=== PATIENT | male | born 1960 | race Caucasian/White ===

== ENCOUNTER 2018-10-24 15:12 | Emergency (ER) | payer MEDICARE, MEDICAID ==
[2018-10-24 15:20] VITALS: BP 185/74
--- NOTE | 2018-10-24 15:50 | UC ---
UC General HPI - HPI Summary HPI Summary: 58 yo with hx of chronic pain, with development of jaundice over a 5 day period , following an illness with subjective fever, vomiting x 2, and several days of loose stools. Overall has improved, but aware of dark urine and jaundice. No pruritus. Decreased appetite x years and reports a weight loss of about 100 pounds over a year, but for the past ? year his weight has been stable. No dysphagia, abdominal pain, abdominal bloating or back pain. No history of alcohol use or iv drug abuse, no hx of blood transfusions. - History of Current Complaint Chief Complaint: UCGeneralIllness Stated Complaint: TIRED Time Seen by Provider: 10/24/18 15:23 Hx Obtained From: Patient Onset/Duration: Gradual Onset, Lasting Days Pain Intensity: 0 Associated Signs & Symptoms: Negative: Abdominal Pain, Anticoagulation Therapy, Back Pain, Cough, Chest Pain, Decreased Responsiveness, Dizziness, Dysuria, Decreased Oral Intake, Hematemesis, Melena, Nausea, Recent Medication Changes - Allergy/Home Medications Allergies/Adverse Reactions: Allergies Allergy/AdvReac Type Severity Reaction Status Date / Time bacitracin Allergy Rash Verified 10/24/18 15:20 [From Neosporin ([id number])] neomycin Allergy Rash Verified 10/24/18 15:20 [From Neosporin ([id number])] polymyxin B Allergy Rash Verified 10/24/18 15:20 [From Neosporin ([id number])] Adhesive Tape AdvReac See Comment Verified 10/24/18 15:20 PMH/Surg Hx/FS Hx/Imm Hx - Additional Past Medical History Additional PMH: Chronic pain secondary to osteoarthritis both knees post trauma Chronic dry mouth, assumes secondary to meds. Previously Healthy: No Other History Of: Negative For: Anticoagulant Therapy - Surgical History Surgical History: Yes Surgery Procedure, Year, and Place: ORIF R femur - Family History Known Family History: Positive: Cardiac Disease - father and sibs with CAD; father sudden age 56, Other Family History: brother of pancreatic cancer. - Social History Occupation: Disabled Lives: Alone Alcohol Use: None Substance Use Type: Marijuana Substance Use Comment - Amount & Last Used: daily Smoking Status (MU): Never Smoked Tobacco - Immunization History Most Recent Influenza Vaccination: never takes Most Recent Tetanus Shot: utd Most Recent Pneumonia Vaccination: refused Review of Systems All Other Systems Reviewed And Are Negative: Yes Constitutional: Positive: Fatigue Skin: Positive: Negative Eyes: Positive: Negative ENT: Positive: Negative Respiratory: Negative: Shortness Of Breath Cardiovascular: Positive: Other - says no hx of hypertension, typically BP at Dr. Boss's office is 130/80. States got irritated at his phone on the way here. Negative: Palpitations, Chest Pain Gastrointestinal: Positive: Negative Genitourinary: Positive: Other - urine has been dark in color x several days.. Negative: Dysuria, Hematuria, Frequency, Urgency Motor: Positive: Decreased ROM - both knees Neurovascular: Positive: Negative Musculoskeletal: Positive: Arthralgia Neurological: Negative: Headache, Weakness Psychological: Positive: Anxious Is Patient Immunocompromised?: No Physical Exam Triage Information Reviewed: Yes Appearance: No Pain Distress, Obese - Large man, rather forceful in speech and manner, without pain. Alert and oriented., Other: - Jaundiced. Vital Signs: Initial Vital Signs Temp 98.6 F 10/24/18 15:16 Pulse 93 10/24/18 15:16 Resp 18 10/24/18 15:16 BP 185/74 10/24/18 15:16 Pulse Ox 100 10/24/18 15:16 Vital Signs Reviewed: Yes Eyes: Positive: Other: - + scleral icterus ENT: Positive: Pharynx normal, TMs normal, Other - dry mucous membranes Dental Exam: Normal Neck: Positive: Supple, Nontender, No Lymphadenopathy Respiratory: Positive: Lungs clear, Normal breath sounds Cardiovascular: Positive: RRR, No Murmur Abdomen Description: Positive: Nontender, No Organomegaly - Liver without apparent enlargement, no tenderness to liver edge., Soft. Negative: CVA Tenderness (R), CVA Tenderness (L), Distended, Guarding, Peritoneal Signs Bowel Sounds: Positive: Present Musculoskeletal: Positive: Strength Intact, Edema @ - bilateral mild pitting edema; reports chronic Skin Exam: Other - jaundiced; hemosiderin deposits both legs. Course/Dx - Course Course Of Treatment: Discussed currently has jaundice, not acutely ill. Needs investigations, declines ER today. Aware of need for imaging studies. - Differential Dx - Multi-Symptom Differential Diagnoses: Metabolic Abnormality, Other - obstructive jaundice, hepatocellular injury, pancreatic inflammation - Diagnoses Provider Diagnosis: Jaundice Discharge - Sign-Out/Discharge Documenting (check all that apply): Patient Departure All imaging exams completed and their final reports reviewed: No Studies - Discharge Plan Condition: Stable Disposition: HOME Patient Education Materials: Jaundice (ED) Referrals: No Primary Care Phys,NOPCP [Primary Care Provider] - [facility] [Outside] Additional Instructions: Lab testing will be available tomorrow. As discussed, you have evidence of jaundice, which could be the result of an infection or could be due to many other causes, such as medications or blockage of flow out of the liver. Work is being done to check on possible reasons, but more work up will be needed. Call the [facility] clinic on Friday to arrange an urgent visit to begin this work up. IN the meantime, keep up a high intake of fluids. If you develop vomiting or abdominal pain or fever. please go to the emergency room for evaluation. - Billing Disposition and Condition Condition: STABLE Disposition: Home
[2018-10-25 13:45] LABS: ABS Basophils 0 10^3/ul (0-0.2); ABS Eosinophils 0.1 10^3/ul (0-0.6); ABS Lymphocytes 1.3 10^3/ul (1.0-4.8); ABS Monocytes 0.7 10^3/ul (0-0.8); ABS Neutrophils 3.6 10^3/ul (1.5-7.7); ABS Nucleated RBC 0 10^3/ul; Eosinophil % 2.1 %; Hematocrit 40 % (42-52); Hemoglobin 13.8 g/dl (14.0-18.0); Lymphocyte % 22.2 %; Mean Corpuscular HGB Conc 34 g/dl (31-36); Mean Corpuscular Hemoglobin 31 pg (27-31); Mean Corpuscular Volume 91 fL (80-94); Mean Platelet Volume 9.8 fL (7.4-10.4); Nucleated Red Blood Cells % 0.3; Platelet Count 113 10^3/ul (150-450); Red Cell Distribution Width 17 % (10.5-15); White Blood Count 5.7 10^3/ul (3.5-10.8)
[2018-10-25 14:03] LABS: EGFR Non-African American 93.5 (>60)
--- NOTE | 2018-10-25 15:59 | UC ---
- Progress Note Progress Note: 10/25/2018 CBC: Hg 13.8 low HCR;40 low CMC: itcteric results may not be valid, Billirubin 23.20 very elevated Liver enzymes still pending Amylase :20 low Hep B panel still pending Dr Newton called clinic this morning advised to call back patient and inform him he needs to go to the ER immediately for further evaluation and treatment. Nurse Tanya Alvarez Already contacted Patient on his phone and he stated he will go tomorrow morning. No change Karma Ramon PA-C Course/Dx - Diagnoses Provider Diagnoses: Jaundice Discharge - Sign-Out/Discharge Documenting (check all that apply): Patient Departure - D/C home All imaging exams completed and their final reports reviewed: No Studies - Discharge Plan Condition: Stable Disposition: HOME Patient Education Materials: Jaundice (ED) Referrals: [facility] [Outside] No Primary Care Phys,NOPCP [Primary Care Provider] - Additional Instructions: Lab testing will be available tomorrow. As discussed, you have evidence of jaundice, which could be the result of an infection or could be due to many other causes, such as medications or blockage of flow out of the liver. Work is being done to check on possible reasons, but more work up will be needed. Call the [facility] clinic on Friday to arrange an urgent visit to begin this work up. IN the meantime, keep up a high intake of fluids. If you develop vomiting or abdominal pain or fever. please go to the emergency room for evaluation. - Billing Disposition and Condition Condition: STABLE Disposition: Home
--- NOTE | 2018-10-26 07:15 | UC ---
- Progress Note Progress Note: Pt aware of results CBC, CMP, Hep panel Pt went to ED yesterday - left AMA when advised admission per notes no change nick 10/26/18 Course/Dx - Diagnoses Provider Diagnoses: Jaundice Discharge - Sign-Out/Discharge Documenting (check all that apply): Post-Discharge Follow Up All imaging exams completed and their final reports reviewed: No Studies - Discharge Plan Condition: Stable Disposition: HOME Patient Education Materials: Jaundice (ED) Referrals: [facility] [Outside] No Primary Care Phys,NOPCP [Primary Care Provider] - Additional Instructions: Lab testing will be available tomorrow. As discussed, you have evidence of jaundice, which could be the result of an infection or could be due to many other causes, such as medications or blockage of flow out of the liver. Work is being done to check on possible reasons, but more work up will be needed. Call the [facility] clinic on Friday to arrange an urgent visit to begin this work up. IN the meantime, keep up a high intake of fluids. If you develop vomiting or abdominal pain or fever. please go to the emergency room for evaluation. - Billing Disposition and Condition Condition: STABLE Disposition: Home
== END 2018-10-24 16:19 | disposition home or self-care (01) ==
LOC: UCEAST 15:12
DX: R17 Unspecified jaundice (principal); Z88.1 Allergy status to other antibiotic agents; Z91.09 Other allergy status, other than to drugs and biological substances
CPT/HCPCS: 36415; 80053; 82150; 83690; 85025; 86140; 86706; 86708; 86709; 86803; 99211; G0463

== ENCOUNTER 2018-10-25 17:55 | Emergency (ER) | payer MEDICARE, MEDICAID ==
[2018-10-25 18:40] LABS: Hematocrit 37 % (42-52); Hemoglobin 12.7 g/dl (14.0-18.0); Mean Corpuscular HGB Conc 34 g/dl (31-36); Mean Corpuscular Hemoglobin 32 pg (27-31); Mean Corpuscular Volume 93 fL (80-94); Red Blood Count 4.01 10^6/ul (4.00-5.40); Red Cell Distribution Width 17 % (10.5-15)
[2018-10-25 19:03] LABS: ABS Basophils 0 10^3/ul (0-0.2); ABS Eosinophils 0 10^3/ul (0-0.6); ABS Lymphocytes 0.6 10^3/ul (1.0-4.8); ABS Monocytes 0.6 10^3/ul (0-0.8); ABS Neutrophils 2.7 10^3/ul (1.5-7.7); ABS Nucleated RBC 0 10^3/ul; Eosinophil % 0.9 %; Lymphocyte % 15.8 %; Mean Platelet Volume 8.5 fL (7.4-10.4); Nucleated Red Blood Cells % 0.2; Platelet Count 95 10^3/ul (150-450)
[2018-10-25] MEDS ORDERED: Iohexol 300* (CONTRAST) 10 ML SDV IV ONE (19:20)
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
[2018-10-25 22:45] VITALS: BP 161/94
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
== END 2018-10-25 22:43 | disposition left against medical advice (07) ==
LOC: ED 17:55
DX: E80.6 Other disorders of bilirubin metabolism (principal); R94.5 Abnormal results of liver function studies
CPT/HCPCS: 36415; 74177; 80053; 82247; 82248; 83690; 85025; 85060; 99282; Q9967

== ENCOUNTER 2018-10-26 09:37 | Inpatient (IN) | payer MEDICARE, MEDICAID ==
--- NOTE | 2018-10-26 10:05 | ED ---
GI/ HPI - HPI Summary HPI Summary: Patient is a 58 y/o M presenting to ED with complaints of N/V/D and abdominal pain five days ago, elevated bilirubin and liver enzymes. N/V/D and abdominal pain lasted three days and resolved. Patient went to convenient care yesterday as he was told that he appeared jaundiced, patient was sent to ED for further workup due to elevated bilirubin and liver enzymes. At the time, he denied any symptoms, Hx of liver disease, and alcohol usage. Admission was offered to patient but he declined as he stated he needed to "secure his house" last night. Patient returns to ED today and reports no Sx, came back for gallbladder ultrasound. On triage, pain is denied, nothing is noted to aggravate/alleviate Sx. Home medications and allergies are reviewed. - History of Current Complaint Chief Complaint: EDGeneral Time Seen by Provider: 10/26/18 09:56 Stated Complaint: GENERAL ILLNESS Hx Obtained From: Patient Onset/Duration: Started Days Ago - five days ago N/V/D and abdominal pain, Resolved - N/V/D and abdominal pain Timing: Lasting Days - N/V/D and abdominal pain lasted three days Current Severity: None Pain Intensity: 0 Associated Signs and Symptoms: Positive: Nausea, Vomiting, Diarrhea, Abdominal Pain, Other: - elevated bilirubin and liver enzymes Aggravating Factor(s): Nothing Alleviating Factor(s): Nothing - Additional Pertinent History Primary Care Physician: [id number] - Allergy/Home Medications Allergies/Adverse Reactions: Allergies Allergy/AdvReac Type Severity Reaction Status Date / Time bacitracin Allergy Rash Verified 10/26/18 09:46 [From Neosporin ([id number])] neomycin Allergy Rash Verified 10/26/18 09:46 [From Neosporin ([id number])] polymyxin B Allergy Rash Verified 10/26/18 09:46 [From Neosporin ([id number])] Adhesive Tape AdvReac See Comment Verified 10/26/18 09:46 Home Medications: Home Medications Mometasone Furoate 1 applic TOPICAL Q12HR 10/26/18 [History Confirmed 10/26/18] Oxycodone HCl 5 mg PO Q4H 10/26/18 [History Confirmed 10/26/18] PMH/Surg Hx/FS Hx/Imm Hx Endocrine/Hematology History: Denies: Hx Anticoagulant Therapy, Hx Blood Disorders, Hx Blood Transfusions, Hx Bone Marrow Disease, Hx Diabetes, Hx Sickle Cell Disease, Hx Anemia, Hx Unexplained Bleeding, Other Endocrine/Hematological Disorders Cardiovascular History: Reports: Hx Hypertension History: Denies: Hx Acute Renal Failure, Hx Benign Prostatic Hyperplasia, Hx Chronic Renal Failure, Hx Dialysis, Hx Kidney Infection, Hx Renal Disease, Other Problems/Disorders Musculoskeletal History: Reports: Hx Arthritis - alittle Sensory History: Denies: Hx Contacts or Glasses, Hx Hearing Aid Opthamlomology History: Denies: Hx Contacts or Glasses Neurological History: Denies: Hx Developmental Delay, Hx Headaches, Hx Nerve Disease, Hx Spinal Cord Injury, Other Neuro Impairments/Disorders Psychiatric History: Denies: Hx Attention Deficit Hyperactivity Disorder, Hx Eating Disorder, Hx Panic Disorder, Hx Post Traumatic Stress Disorder, Hx Inpatient Treatment, Hx Community Mental Health Tx, Hx of Violent Episodes Against Others, Hx Substance Abuse, Other Psychiatric Issues/Disorders - Surgical History Surgery Procedure, Year, and Place: ORIF R femur Hx Anesthesia Reactions: No Infectious Disease History: No Infectious Disease History: Denies: History Other Infectious Disease, Traveled Outside the [place] in Last 30 Days - Family History Known Family History: Positive: Cardiac Disease - father and sibs with CAD; father sudden age 56, Other Family History: brother of pancreatic cancer. - Social History Alcohol Use: None Substance Use Type: Reports: Marijuana Substance Use Comment - Amount & Last Used: daily Smoking Status (MU): Never Smoked Tobacco Review of Systems Positive: Other - elevated bilirubin and liver enzymes . Negative: Fever - on vitals, temp is 98.3 F Positive: Abdominal Pain, Vomiting, Diarrhea, Nausea All Other Systems Reviewed And Are Negative: Yes Physical Exam - Summary Physical Exam Summary: VITAL SIGNS: Reviewed. GENERAL: Patient is a well-developed and nourished male who is lying comfortable in the stretcher. Patient is not in any acute respiratory distress. Patient is jaundiced. HEAD AND FACE: No signs of trauma. No ecchymosis, hematomas or skull depressions. No sinus tenderness. EYES: PERRLA, EOMI x 2, No injected conjunctiva, no nystagmus. EARS: Hearing grossly intact. Ear canals and tympanic membranes are within normal limits. MOUTH: Oropharynx within normal limits. NECK: Supple, trachea is midline, no adenopathy, no JVD, no carotid bruit, no c- spine tenderness, neck with full ROM. CHEST: Symmetric, no tenderness at palpation LUNGS: Clear to auscultation bilaterally. No wheezing or crackles. CVS: Regular rate and rhythm, S1 and S2 present, no murmurs or gallops appreciated. ABDOMEN: Soft, non-tender. Abdomen is distended. No rebound no guarding, and no masses palpated. Bowel sounds are normal. EXTREMITIES: FROM in all major joints, no cyanosis or clubbing. Bilateral edema 2+. NEURO: Alert and oriented x 3. No acute neurological deficits. Speech is normal and follows commands. SKIN: Dry and warm Triage Information Reviewed: Yes Vital Signs On Initial Exam: Initial Vitals Temp Pulse Resp BP Pulse Ox 98.3 F 86 16 131/58 96 10/26/18 09:41 10/26/18 09:41 10/26/18 09:41 10/26/18 09:41 10/26/18 09:41 Vital Signs Reviewed: Yes Diagnostics - Vital Signs Vital Signs Temp Pulse Resp BP Pulse Ox 10/26/18 09:41 98.3 F 86 16 131/58 96 - Laboratory Result Diagrams: 10/26/18 10:32 10/26/18 10:32 Lab Statement: Any lab studies that have been ordered have been reviewed, and results considered in the medical decision making process. - Ultrasound No standard instances Ultrasound Interpretation Completed By: Radiologist Summary of Ultrasound Findings: GALLBLADDER US IMPRESSION: 1. SMALL AMOUNT OF ASCITES. 2. HETEROGENEOUS NODULAR LIVER SUGGESTIVE OF CIRRHOSIS. 3. EXTRAHEPATIC DUCTAL DISTENTION. AN MRCP STUDY MAY BE HELPFUL IN FURTHER EVALUATION. 4. DISTENDED GALLBLADDER WITH MILD GALLBLADDER WALL THICKENING LIKELY SECONDARY TO ASCITES. LESS LIKELY ACUTE CHOLECYSTITIS. RECOMMEND CLINICAL CORRELATION. THIS REPORT WAS REVIEWED BY ED PHYSICIAN. - EKG 1024 Cardiac Rate: NL - rate of 64 bpm EKG Rhythm: Sinus Rhythm EKG Comparison: No Significant Change - no significant change compared to EKG from 05/20/15 Summary of EKG Findings: EKG showed sinus rhythm with rate of 64 BPM, right bundle branch block, no significant change compared to EKG from 05/20/15 [facility] Course/Dx - Course Assessment/Plan: Patient is a 58 y/o M presenting to ED with complaints of N/V/ D and abdominal pain five days ago, elevated bilirubin and liver enzymes. N/V/D and abdominal pain lasted three days and resolved. Patient went to convenient care yesterday as he was told that he appeared jaundiced, patient was sent to ED for further workup due to elevated bilirubin and liver enzymes. At the time, he denied any symptoms, Hx of liver disease, and alcohol usage. Admission was offered to patient but he declined as he stated he needed to "secure his house" last night. Patient returns to ED today and reports no Sx, came back for gallbladder ultrasound. On triage, pain is denied, nothing is noted to aggravate /alleviate Sx. Home medications and allergies are reviewed. Blood work without any significant abnormality except for slight anemia, INR is 1.65, PTT is 34.2, sodium 132, potassium 3.3, glucose is 124, magnesium 1.6 for which the patient was given potassium chloride and magnesium. The total bilirubin is 21.4, direct is 14.7 indirect is 6.7, AST is 886 and AST is 552. Alkaline phosphatase 122 ammonia 79. CRP 16.4 albumin 2.9. In the ED course the patient was given IV fluids, potassium chloride and magnesium IV. Right upper quadrant ultrasound impression: Small amount of ascites. Heterogeneous nodular liver a suggestion of cirrhosis. Extrahepatic ductal distention. An MRCP study may be helpful in further evaluation. At this point I discussed my physical exam, findings and test results with Dr. Mercedes from the hospital services was accepted the patient for admission. The patient is hemodynamically stable and alert and oriented 3. - Diagnoses Provider Diagnoses: Cirrhosis, Jaundice, Hepatitis - Physician Notifications Discussed Care Of Patient With: Kisha Mercedes Time Discussed With Above Provider: 11:34 Instructed by Provider To: Other - Patient's case was discussed with Dr. Mercedes at 1134, Dr. Mercedes accepts patient for admission. Discharge - Sign-Out/Discharge Documenting (check all that apply): Patient Departure - admit All imaging exams completed and their final reports reviewed: Yes - Discharge Plan Condition: Stable Disposition: ADMITTED TO [facility] - Billing Disposition and Condition Condition: STABLE Disposition: Admitted to [facility] - Attestation Statements Document Initiated by Scribe: Yes Documenting Scribe: RISHABH MEJIAS Provider For Whom Scribe is Documenting (Include Credential): BIANCA MEYERS MD Scribe Attestation: I, RISHABH MEJIAS, scribed for BIANCA MEYERS MD on 10/26/18 at 1808. Scribe Documentation Reviewed: Yes Provider Attestation: The documentation as recorded by the scribe, RISHABH MEJIAS accurately reflects the service I personally performed and the decisions made by me, BIANCA MEYERS MD Status of Scribe Document: Viewed
[2018-10-26 10:54] LABS: ABS Basophils 0 10^3/ul (0-0.2); ABS Eosinophils 0.1 10^3/ul (0-0.6); ABS Lymphocytes 0.9 10^3/ul (1.0-4.8); ABS Monocytes 0.6 10^3/ul (0-0.8); ABS Neutrophils 2.6 10^3/ul (1.5-7.7); ABS Nucleated RBC 0 10^3/ul; Eosinophil % 2.1 %; Hematocrit 35 % (42-52); Hemoglobin 12.4 g/dl (14.0-18.0); Lymphocyte % 20.7 %; Mean Corpuscular HGB Conc 35 g/dl (31-36); Mean Corpuscular Hemoglobin 32 pg (27-31); Mean Corpuscular Volume 91 fL (80-94); Mean Platelet Volume 8.4 fL (7.4-10.4); Nucleated Red Blood Cells % 0.1; Platelet Count 98 10^3/ul (150-450); Red Cell Distribution Width 17 % (10.5-15); White Blood Count 4.1 10^3/ul (3.5-10.8)
[2018-10-26 10:59] LABS: INR 1.65 (0.77-1.02)
[2018-10-26 11:00] LABS: Activated Partial Thrombo Time 34.2 seconds (26.0-36.3)
[2018-10-26 11:03] LABS: Albumin 2.9 g/dL (3.2-5.2); Albumin/Globulin Ratio 0.8 (1-3); C Reactive Protein 16.4 mg/L (<8.01); EGFR Non-African American 94.8 (>60); Globulin 3.7 g/dL (2-4); Potassium 3.3 mmol/L (3.5-5.0); Total Bilirubin 21.4 mg/dL (0.2-1.0); Total Protein 6.6 g/dL (6.4-8.9)
[2018-10-26 11:04] LABS: Magnesium 1.6 mg/dL (1.9-2.7)
[2018-10-26 11:05] LABS: Total Bilirubin 21.5 mg/dL (0.2-1.0)
[2018-10-26 11:36] LABS: Indirect Bilirubin 6.7 mg/dL (0.3-1.0)
[2018-10-26] MEDS ORDERED: Magnesium Sulfate 1 GM IV* 1 GM/100 ML BAG IV ONE (12:49)
[2018-10-26] MEDS ORDERED: Potassium Chlor TAB* 20 MEQ TAB.ER PO ONE (12:52)
[2018-10-26] MEDS ORDERED: oxyCODONE TAB* 5 MG TAB PO SCH (13:00)
[2018-10-26 13:24] LABS: Hepatitis B Surface Antigen Nonreactive (Nonreactive)
[2018-10-26 13:50] LABS: Hepatitis C Antibody Nonreactive (Nonreactive)
--- NOTE | 2018-10-26 14:44 | HP ---
CC: Dr. Boss * HISTORY AND PHYSICAL: DATE OF ADMISSION: 10/26/18. TIME OF ADMISSION: 12:30 p.m. PRIMARY CARE PHYSICIAN: Had been Dr. Smith; however, he states that he was "fired" from this practice. He currently only follows with Dr. Boss for pain management. CHIEF COMPLAINT: "I turned yellow." HISTORY OF PRESENT ILLNESS: This is a 58-year-old man with history of chronic pain syndrome who presents with 3 days of worsening jaundice. He states he did not notice himself, but his friend pointed out that he had yellow eyes and yellow skin. He went to [facility] on Friday and was found to have an elevated bilirubin and was told to come to the emergency department; however, he refused. Then he came to the emergency department last night, was found to have a consistently elevated bilirubin and was evaluated for admission; however , he refused to stay, so he is back today with jaundice and is surprised to hear that I am planning to admit him. Other than jaundice, he declines any other symptoms except that he had "a stomach bug" last week that he describes as 1 day of vomiting and loose stool that resolved on its own. He has not had any recent travel. He denies any recent weight loss or weight gain. He denies abdominal distention. He denied any bleeding. He denies change in his bowels. He says he used to drink heavily, but quit approximately 30 years ago. He drank heavily for approximately 10 years. He has never used IV drugs and he does not currently drink alcohol. He takes hydrocodone for his pain, but no Tylenol containing products. He has no family history of liver disease and he has no other medical history that he knows of. PAST MEDICAL HISTORY: Knee osteoarthritis. Otherwise, he says he has no medical problems and taking no other medications. PAST SURGICAL HISTORY: None. HOME MEDICATIONS: 1. Oxycodone 5 mg q.4 p.r.n. pain. 2. Zanaflex 4 mg q.4 p.r.n. pain. FAMILY HISTORY: His brother had pancreatic cancer and last year. 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 He is a never smoker. His emergency contact is his son, Ronnie Lenz, phone number [phone]. REVIEW OF SYSTEMS: He denies fever, chills, nausea, vomiting, diarrhea, constipation, confusion or forgetfulness, falls, chest pain, shortness of breath. Remainder of the 14-point review of systems is negative. PHYSICAL EXAMINATION GENERAL: Alert, jaundiced man in no distress. He appears older than stated age. He is nontoxic appearing and he is irate. He yells through my interview and at the staff who enter his room. He is oriented to person, place and situation and time. VITAL SIGNS: Temperature 98.3, heart rate 86, respiratory rate 16, pulse ox 96 % on room air, blood pressure 131/58. HEENT: His pupils are equal bilaterally. He has scleral icterus. His oral mucosa is moist. He has no pharyngeal exudates or erythema. NECK: I see no JVP. No cervical adenopathy. CHEST: He is in a regular rate and rhythm with no murmurs. LUNGS: Clear bilaterally. ABDOMEN: Flat with no fluid wave. His liver is barely palpable at the costal margin. I cannot feel his spleen. He has no guarding or rebound. EXTREMITIES: 2+ pitting edema to the knees bilaterally. SKIN: Icteric. He has no petechiae or other bleeding. LABORATORY DATA: White blood cells 4.1, hemoglobin 12.4, platelets 98,000. INR 1.65. Sodium 132, potassium 3.3, chloride 103, bicarb 22, creatinine 0.83, lactic acid 1.0, magnesium 1.6, total bilirubin 21.5, AST 86, ALT 552, alkaline phosphatase 122, troponin 0, albumin 2.9, lipase 31. IMAGING: A gallbladder ultrasound shows; 1. Small amount of ascites. 2. Heterogenous nodular liver suggestive of cirrhosis. 3. Extrahepatic ductal distention. 4. Distended gallbladder with mild gallbladder wall thickening likely secondary to ascites, less likely acute cholecystitis. Abdomen and pelvis CT from 10/25/18 shows cirrhotic liver, splenomegaly, extensive collateral circulation consistent with portal venous hypertension including prominent paraesophageal varices, shotty nonspecific upper abdominal adenopathy and very minimal free fluid without abscess. ASSESSMENT AND PLAN: This is a 58-year-old man with history of chronic pain syndrome who presented to the emergency department with 3 to 4 days of worsening jaundice. 1. Acute decompensated liver failure. The etiology of his liver failure is unclear and this is a new diagnosis for him. His MELD score is currently 27. He does have a remote history of alcohol abuse, but I will do a complete cirrhosis workup including ferritin, ceruloplasmin, an acute hepatitis panel, hep C antibody, antimitochondrial and anti-smooth muscle antibodies and also AFP. I am consulting Dr. Noonan to see if either an MRCP or an ERCP would be indicated as pancreatic malignancy should be on the differential given the painlessness of the jaundice. I am checking an acetaminophen level and UA. Unfortunately, the ultrasound was not done with Doppler and this may be prudent to rule out a portal vein thrombosis as the underlying reason for his decompensation. I will discuss this with Dr. Noonan. 2. Coagulopathy, likely related to decompensated liver failure. No evidence of bleeding and no indication for reversal. 3. Thrombocytopenia also likely secondary to decompensated liver failure. I note that his thrombocytopenia dates back to 2014; however, there is no abdominal imaging from that time. 4. Diet: Low sodium diet. 5. Full code. [id number]/[facility] #: [id number] [facility]
[2018-10-26] MEDS: tiZANidine TAB* 2 MG PO PRN ×2 (14:47→23:22)
[2018-10-26 18:21] LABS: Urine Appearance Clear; Urine Bilirubin 2+ (Negative); Urine Blood Negative (Negative); Urine Color Amber; Urine Glucose Negative (Negative); Urine Ketones Negative (Negative); Urine Nitrite Negative (Negative); Urine Protein Negative (Negative); Urine Specific Gravity 1.006 (1.010-1.030); Urine Urobilinogen Positive (Negative)
--- NOTE | 2018-10-26 18:29 | CONS ---
CC: Dr. Mercedes * CONSULTATION REPORT: DATE OF CONSULT: 10/26/18 REQUESTING PHYSICIAN: Dr. Mercedes. INDICATION: Jaundice. HISTORY OF PRESENT ILLNESS: Mr. Lobato is a very pleasant 58-year-old gentleman , who states that his friends had noticed him to be "yellow" beginning about 3 to 4 days ago. He came to the emergency room a couple of days ago for this and was found to have an elevated bilirubin level. He thought he was coming back today for an ultrasound. He was requested to be admitted from the emergency room last night; however, he refused. He returned today thinking he was getting an ultrasound. He did have the ultrasound today but was agreeable to admission at that point. The patient states that he does have intermittent nausea and vomiting. He states that his urine has been dark multiple times in the past, but he drinks fluids and it returns to a normal yellow color. Denies any abdominal pain. No change in his bowel habit. No black stools. No bright red blood. He states he has never been jaundiced before. No family history of liver disease. He did have a history of drinking to excess approximately 30 years ago; however, he denies any alcohol use in the past 30 years. He denies any intravenous drug use or any drug use other than marijuana. 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 He does use acetaminophen on a regular basis for knee pain and again no family history of liver disease. PAST MEDICAL HISTORY: Significant for osteoarthritis. PAST SURGICAL HISTORY: None. MEDICATIONS AT HOME: Include: 1. Oxycodone. 2. Zanaflex. FAMILY HISTORY: Pancreatic cancer. SOCIAL HISTORY: He denies any recent alcohol use. Thirty years ago, he tells me was his last drink. He denies any tobacco. No IV drug use, but does smoke marijuana. REVIEW OF SYSTEMS: Twelve systems were reviewed and other than that mentioned in the HPI were unremarkable. PHYSICAL EXAM: Temperature is 98, blood pressure is 149/66, O2 sat is 100% on room air, pulse is 76. General: Chronically ill-appearing male, appears older than his stated age, jaundiced. HEENT: Mucous membranes are moist without lesions, ulcers, or exudates. Sclerae are icteric. Conjunctivae are not pale. Neck is supple. Trachea is midline. Heart: Regular rate and rhythm. Lungs: Clear to auscultation bilaterally. No wheezes, rales, or rhonchi. Abdomen is obese. Positive bowel sounds. Soft. I could not appreciate any dull flanks. Skin is warm and dry and visibly jaundiced. Neuro: No asterixis. DIAGNOSTIC STUDIES/LAB DATA: Of note, his MELD is 27. Sodium is 132. His bilirubin is 21.5, AST is 886. This has come down from 10/24/18, it was 1195, it is now down to 886, it was 36 back in 2015. His ALT came down from 678 to 522, it was 20 back in 2015. Bilirubin in 2015 was 0.8, it was 23.2 on 10/24/18 , it is down to 21.4. Albumin is 29. Platelets of 98, they were 90 back in 2015. INR is 1.65, 1.16 in 2015. Hemoglobin is 12.4. He does have a gallbladder ultrasound from earlier this morning, which reveals a small amount of ascites, cirrhotic liver, extrahepatic ductal distention. MRCP study may be helpful in further evaluation. CT abdomen and pelvis from yesterday reveals cirrhotic liver, splenomegaly, extensive collateral circulation due to portal venous hypertension, nonspecific abdominal adenopathy, mild ascites, borderline mesenteric lymph nodes. ASSESSMENT AND PLAN: This is a 58-year-old gentleman who presents with significantly elevated liver function tests without many other symptoms. Possibilities would include some form of intrinsic liver disease. He adamantly denies any alcohol in the past 30 years. He has had blood work already for hepatitis A, B, and C. They are all negative. Other possibilities would include autoimmune hepatitis, primary biliary cholangitis, hemochromatosis. I doubt he has Juan disease. He does have a family history of pancreatic cancer. He does have extrahepatic ductal dilatation. I would expect if there was a pancreatic cancer causing ductal obstruction, it would have been seen on the CT; however, Radiology is recommending an MRCP. I think that this is reasonable. Additionally, it could be acetaminophen toxicity. He states he has not taken any in the past 3 days. He did have low platelet count back in 2014, thus I suspect this may be more of an acute on chronic issue. There are no obstructing gallstones. He adamantly denies any IV drug use, thus I doubt we have an early hepatitis C or hepatitis B that has not manifested yet. At this point, he does have lab work pending. We will arrange for an MRCP. His numbers are improving. Another possibility would include an ischemic hepatitis ; however, he denies any significant hypotension episodes or abdominal pain. We will await the blood work return and we will obtain the MRCP. We will follow along very closely. [id number]/[facility] #: [id number] [facility]
[2018-10-26] MEDS ORDERED: Morphine VIAL* 4 MG/ML VIAL (1 ml vial) IV ONE (21:04)
[2018-10-26] MEDS: oxyCODONE TAB* 5 MG TAB PO SCH ×2 (21:07→23:22)
[2018-10-27] MEDS: oxyCODONE TAB* 5 MG TAB PO SCH ×4 (02:10→19:52)
[2018-10-27 07:06] LABS: INR 1.65 (0.77-1.02)
[2018-10-27 07:19] LABS: Albumin 2.9 g/dL (3.2-5.2); Albumin/Globulin Ratio 0.8 (1-3); Calcium 8.9 mg/dL (8.6-10.3); EGFR Non-African American 94.8 (>60); Globulin 3.8 g/dL (2-4); Total Protein 6.7 g/dL (6.4-8.9)
[2018-10-27 07:23] LABS: ABS Basophils 0 10^3/ul (0-0.2); ABS Eosinophils 0.1 10^3/ul (0-0.6); ABS Lymphocytes 1.6 10^3/ul (1.0-4.8); ABS Monocytes 0.7 10^3/ul (0-0.8); ABS Neutrophils 2.6 10^3/ul (1.5-7.7); ABS Nucleated RBC 0 10^3/ul; Eosinophil % 2.8 %; Hematocrit 37 % (42-52); Hemoglobin 12.8 g/dl (14.0-18.0); Lymphocyte % 32.3 %; Mean Corpuscular HGB Conc 35 g/dl (31-36); Mean Corpuscular Hemoglobin 32 pg (27-31); Mean Corpuscular Volume 91 fL (80-94); Mean Platelet Volume 8.6 fL (7.4-10.4); Nucleated Red Blood Cells % 0.1; Platelet Count 108 10^3/ul (150-450); Red Blood Count 4.06 10^6/ul (4.00-5.40); Red Cell Distribution Width 17 % (10.5-15); Total Bilirubin 21.1 mg/dL (0.2-1.0)
[2018-10-27 15:11] LABS: Ceruloplasmin 30.7 mg/dL
[2018-10-27 15:31] LABS: AFP Tumor Marker 7.7 ng/mL (<6.0)
[2018-10-27] MEDS ORDERED: Morphine VIAL* 4 MG/ML VIAL (1 ml vial) IV ONE (20:55)
--- NOTE | 2018-10-27 21:32 | PN ---
Subjective Date of Service: 10/27/18 Interval History: Mr. Lobato underwent MRCP last night. He feels fine today, wants to go home. He denies nausea, vomiting, melena, confusion, hematochezia, bloating, fevers, abdominal pain. Appetite is good. Had a normal bm this morning. Objective Active Medications: Ondansetron HCl (Zofran Inj*) 4 mg IV Q6H PRN PRN Reason: NAUSEA Oxycodone HCl (Roxycodone Tab*) 5 mg PO Q4H JERRY Last Admin: 10/27/18 19:52 Dose: 5 mg Vital Signs - 8 hr 10/27/18 10/27/18 10/27/18 14:15 15:01 17:00 Temperature 98.5 F Pulse Rate 70 Respiratory 18 16 18 Rate Blood Pressure 153/68 (mmHg) O2 Sat by Pulse 100 Oximetry 10/27/18 10/27/18 10/27/18 18:47 19:52 21:08 Temperature 98.5 F Pulse Rate 83 Respiratory 14 20 18 Rate Blood Pressure 174/70 (mmHg) O2 Sat by Pulse 99 Oximetry Oxygen Devices in Use Now: None Appearance: alert, well appearing, jaundiced Eyes: - - +icterus Ears/Nose/Mouth/Throat: NL Teeth, Lips, Gums, - - +subungual icterus Respiratory: Symmetrical Chest Expansion and Respiratory Effort, Clear to Auscultation Cardiovascular: NL Sounds; No Murmurs; No JVD, RRR Abdominal: NL Sounds; No Tenderness; No Distention, No Hepatosplenomegaly, - - no fluid wave Lymphatic: No Cervical Adenopathy Extremities: - - 1+ edema b/l Skin: No Rash or Ulcers Neurological: Alert and Oriented x 3, - - no asterixis Result Diagrams: 10/27/18 06:49 10/27/18 06:49 Assess/Plan/Problems-Billing Assessment: This is a 58 year old man with chronic pain syndrome who presented to the ED with jaundice and was found to have cirrhosis on imaging, which is a new diagnosis for him. - Patient Problems (1) Acute liver failure Current Visit: Yes Status: Acute Comment: acute hepatitis panel is negative ferritin is >1500 and TIBC is very elevated, suggesting a diagnosis of hemochromatosis I have discussed this with Dr. Wheeler and requested a liver biopsy and he agrees to do one tomorrow afternoon anti-mitochondrial and anti-smooth muscle ab are pending may be a transplant candidate but I have no discussed this with him yet no bleeding, encephalopathy ? role of BB in primary prophylaxis in patients with varices visualized on CT but not endoscopy; will disucss with GI (2) Chronic pain Current Visit: No Status: Acute Code(s): G89.29 - OTHER CHRONIC PAIN SNOMED Code(s): 60522937 Comment: At home take [place] 10/325 6-8x daily as well as Oxycodone 5mg 6-8x daily and Zanaflex. I am giving him hydrocodone and oxy only. Dr. Boss contacted me today and noted that zanaflex can cause LFT abnormalities in 5% of people. This would not explain the other findings, but I am discontinuing it so as not to obscure the picture (3) HTN (hypertension) Current Visit: No Status: Acute Code(s): I10 - ESSENTIAL (PRIMARY) HYPERTENSION SNOMED Code(s): 84382294 Comment: had been on metoprolol in the past, but he currently has no PCP will add back at the dose he had been on in 2015 per our records
[2018-10-27] MEDS: Ondansetron INJ* 2 MG/ML VIAL IV PRN (21:41)
[2018-10-27] MEDS ORDERED: HYDROcodone/ACETAMIN 5-325 MG* 1 TAB PO PRN (22:29)
[2018-10-27] MEDS ORDERED: PROCHLORPERAZINE INJ 5 MG/ML 2 ML VIAL IV PRN (22:30)
[2018-10-28] MEDS: oxyCODONE TAB* 5 MG TAB PO SCH ×3 (03:24→09:01)
[2018-10-28] MEDS: Ondansetron INJ* 2 MG/ML VIAL IV PRN ×2 (07:23→15:25)
[2018-10-28] MEDS ORDERED: oxyCODONE TAB* 5 MG TAB PO SCH (08:22)
--- NOTE | 2018-10-28 08:28 | PN ---
Subjective Date of Service: 10/28/18 Interval History: Refused labs and vitals this morning. Feels nauseous and has been vomiting and thinks it is due to narcotic withdrawal. Objective Active Medications: Hydrocodone Bitart/Acetaminophen ([place] 5-325 Tab*) 2 tab PO Q6H PRN PRN Reason: PAIN Last Admin: 10/28/18 03:24 Dose: 2 tab Ondansetron HCl (Zofran Inj*) 4 mg IV Q6H PRN PRN Reason: NAUSEA Last Admin: 10/28/18 07:23 Dose: 4 mg Prochlorperazine Edisylate (Compazine Inj*) 5 mg IV Q6H PRN PRN Reason: NAUSEA/VOMITING Last Admin: 10/27/18 22:47 Dose: 5 mg Vital Signs - 8 hr 10/28/18 10/28/18 10/28/18 03:14 03:20 03:24 Temperature 97.4 F Pulse Rate 105 Respiratory 20 20 Rate Blood Pressure 174/72 (mmHg) O2 Sat by Pulse 100 Oximetry 10/28/18 10/28/18 10/28/18 05:57 07:28 07:29 Temperature Pulse Rate Respiratory 20 18 18 Rate Blood Pressure (mmHg) O2 Sat by Pulse Oximetry Oxygen Devices in Use Now: None Appearance: alert, sitting on the edge of the bed, uncomfortable but nontoxic Eyes: - - + icterus Neck: NL Appearance and Movements; NL JVP Respiratory: Symmetrical Chest Expansion and Respiratory Effort, Clear to Auscultation Cardiovascular: NL Sounds; No Murmurs; No JVD, RRR Abdominal: - - not distended. obese. nontender, no fluid wave. liver is palpable at the costal margin. Extremities: - - 1+ edema Neurological: Alert and Oriented x 3, - - no asterixis Result Diagrams: 10/27/18 06:49 10/27/18 06:49 Assess/Plan/Problems-Billing Assessment: This is a 58 year old man with chronic pain syndrome who presented to the ED with jaundice and was found to have cirrhosis on imaging. - Patient Problems (1) Nausea & vomiting Current Visit: Yes Status: Acute Code(s): R11.2 - NAUSEA WITH VOMITING, UNSPECIFIED SNOMED Code(s): 62202818 Comment: exam is benign, but may be related to liver failure will ask lab to attempt to re-draw labs he thinks it is from withdrawal but he has been getting narcotics increase compazine (2) Acute liver failure Current Visit: Yes Status: Acute Comment: acute hepatitis panel is negative ferritin is >1500 and TIBC is very elevated, suggesting a diagnosis of hemochromatosis Liver biopsy today anti-mitochondrial and anti-smooth muscle ab are pending may be a transplant candidate but I have no discussed this with him yet no bleeding, encephalopathy ? role of BB in primary prophylaxis in patients with varices visualized on CT but not endoscopy; will disucss with GI (3) Chronic pain Current Visit: No Status: Acute Code(s): G89.29 - OTHER CHRONIC PAIN SNOMED Code(s): 28841973 Comment: At home take [place] 10/325 6-8x daily as well as Oxycodone 5mg 6-8x daily and Zanaflex. I am giving him hydrocodone and oxy only. Dr. Boss contacted me and noted that zanaflex can cause LFT abnormalities in 5% of people. This would not explain the other findings, but I am discontinuing it so as not to obscure the picture (4) HTN (hypertension) Current Visit: No Status: Acute Code(s): I10 - ESSENTIAL (PRIMARY) HYPERTENSION SNOMED Code(s): 92479159 Comment: had been on metoprolol in the past, but he currently has no PCP will add back at the dose he had been on in 2015 per our records (5) Thrombocytopenia Current Visit: Yes Status: Acute Code(s): D69.6 - THROMBOCYTOPENIA, UNSPECIFIED SNOMED Code(s): 981717628 Comment: likely liver failure / splenomegaly no evidence of bleeding (6) Coagulopathy Current Visit: Yes Status: Acute Comment: likely due to liver failure no evidence of bleeding
[2018-10-28] MEDS: Metoprolol Succinate XL TAB* 25 MG PO SCH (09:20)
[2018-10-28] MEDS: Codeine TAB* 30 MG PO PRN (10:48)
[2018-10-28] MEDS: PROCHLORPERAZINE INJ 5 MG/ML 2 ML VIAL IV PRN ×2 (10:49→20:50)
[2018-10-28] MEDS ORDERED: Scopolamine 1.5 mg* PATCH TRANSDERM PRN (11:10)
[2018-10-28 13:09] LABS: ABS Basophils 0 10^3/ul (0-0.2); ABS Eosinophils 0 10^3/ul (0-0.6); ABS Lymphocytes 0.8 10^3/ul (1.0-4.8); ABS Monocytes 0.7 10^3/ul (0-0.8); ABS Neutrophils 6.6 10^3/ul (1.5-7.7); ABS Nucleated RBC 0 10^3/ul; Eosinophil % 0.1 %; Hematocrit 37 % (42-52); Hemoglobin 13.3 g/dl (14.0-18.0); Lymphocyte % 9.5 %; Mean Corpuscular HGB Conc 36 g/dl (31-36); Mean Corpuscular Hemoglobin 32 pg (27-31); Mean Corpuscular Volume 89 fL (80-94); Mean Platelet Volume 8.1 fL (7.4-10.4); Nucleated Red Blood Cells % 0; Platelet Count 130 10^3/ul (150-450); Red Blood Count 4.18 10^6/ul (4.00-5.40); Red Cell Distribution Width 17 % (10.5-15); White Blood Count 8.1 10^3/ul (3.5-10.8)
[2018-10-28 13:16] LABS: INR 1.81 (0.77-1.02)
[2018-10-28] MEDS ORDERED: fentaNYL* 50 MCG/ML 2 ML VIAL (100 MCG VIAL) ONE ×2 (13:18→13:42)
[2018-10-28 13:25] LABS: Albumin/Globulin Ratio 0.8 (1-3); BUN/Creatinine Ratio 13.6 (8-20); EGFR Non-African American 97.5 (>60); Globulin 3.9 g/dL (2-4); Potassium 3.7 mmol/L (3.5-5.0); Total Protein 6.9 g/dL (6.4-8.9)
[2018-10-28 13:31] LABS: Magnesium 1.8 mg/dL (1.9-2.7); Total Bilirubin 21.8 mg/dL (0.2-1.0)
[2018-10-28 14:55] LABS: Mitochondria M2 Antibody <0.1 U
[2018-10-28] MEDS: oxyCODONE TAB* 5 MG TAB PO PRN ×2 (15:34→20:50)
[2018-10-28 16:46] LABS: Smooth Muscle Antibody Negative (Negative)
[2018-10-28] MEDS ORDERED: Metoprolol Tartrate TAB* 25 MG PO ONE (17:22)
[2018-10-28] MEDS: LORazepam TAB(*) 1 MG PO SCH (17:42)
[2018-10-29] MEDS: oxyCODONE TAB* 5 MG TAB PO PRN ×3 (01:32→16:55)
[2018-10-29] MEDS: Ondansetron INJ* 2 MG/ML VIAL IV PRN ×2 (01:33→16:55)
[2018-10-29] MEDS: LORazepam TAB(*) 1 MG PO SCH (03:48)
[2018-10-29] MEDS: Codeine TAB* 30 MG PO PRN ×2 (04:01→12:48)
[2018-10-29 05:39] LABS: Hematocrit 39 % (42-52); Hemoglobin 13.7 g/dl (14.0-18.0); Mean Corpuscular HGB Conc 35 g/dl (31-36); Mean Corpuscular Hemoglobin 32 pg (27-31); Mean Corpuscular Volume 89 fL (80-94); Platelet Count 147 10^3/ul (150-450); Red Blood Count 4.36 10^6/ul (4.00-5.40); Red Cell Distribution Width 18 % (10.5-15); White Blood Count 9.3 10^3/ul (3.5-10.8)
[2018-10-29 05:53] LABS: INR 1.8 (0.77-1.02)
[2018-10-29 06:02] LABS: Albumin 2.9 g/dL (3.2-5.2); Albumin/Globulin Ratio 0.7 (1-3); BUN/Creatinine Ratio 15.1 (8-20); Calcium 8.9 mg/dL (8.6-10.3); Potassium 3.7 mmol/L (3.5-5.0); Total Protein 6.9 g/dL (6.4-8.9)
[2018-10-29 06:07] LABS: Magnesium 1.9 mg/dL (1.9-2.7); Total Bilirubin 21.2 mg/dL (0.2-1.0)
[2018-10-29] MEDS: Metoprolol Succinate XL TAB* 25 MG PO SCH (10:50)
--- NOTE | 2018-10-29 12:19 | PN ---
Subjective Date of Service: 10/29/18 Interval History: Mr. Lobato was started on WAM protocol yesterday after a nurse in overheard a conversation about whiskey between the patient and his friends, and he received some ativan overnight. He continues to deny alcohol ingestion. He is sleepy this morning but responds to all my questions, says his nausea is a little better, he has no pain. He has not had any bleeding from the biopsy site. Objective Active Medications: Codeine Sulfate (Codeine Tab*) 30 mg PO Q4H PRN PRN Reason: PAIN Last Admin: 10/29/18 04:01 Dose: 30 mg Metoprolol Succinate (Toprol Xl Tab*) 12.5 mg PO DAILY JERRY Last Admin: 10/29/18 10:50 Dose: 12.5 mg Ondansetron HCl (Zofran Inj*) 4 mg IV Q6H PRN PRN Reason: NAUSEA Last Admin: 10/29/18 01:33 Dose: 4 mg Oxycodone HCl (Roxycodone Tab*) 10 mg PO Q4H PRN PRN Reason: PAIN Last Admin: 10/29/18 10:50 Dose: 10 mg Pharmacy Profile Note (Scopolamine Patch Remove*) 1 note PATCH OFF Q72H JERRY Prochlorperazine Edisylate (Compazine Inj*) 10 mg IV Q6H PRN PRN Reason: NAUSEA/VOMITING Last Admin: 10/28/18 20:50 Dose: 10 mg Scopolamine (Transderm-Scop 1.5 Mg Patch*) 1 patch TRANSDERM Q72H PRN PRN Reason: NAUSEA/VOMITING Last Admin: 10/28/18 11:54 Dose: 1 patch Vital Signs - 8 hr 10/29/18 10/29/18 10/29/18 06:00 06:45 07:14 Temperature 98.5 F Pulse Rate 102 Respiratory 20 20 18 Rate Blood Pressure 152/71 (mmHg) O2 Sat by Pulse 93 Oximetry 10/29/18 10/29/18 07:42 10:50 Temperature Pulse Rate Respiratory 18 18 Rate Blood Pressure (mmHg) O2 Sat by Pulse Oximetry Oxygen Devices in Use Now: None Appearance: sleepy but arousable, jaundiced Eyes: - - + icterus Ears/Nose/Mouth/Throat: NL Teeth, Lips, Gums Neck: NL Appearance and Movements; NL JVP Respiratory: Symmetrical Chest Expansion and Respiratory Effort Cardiovascular: NL Sounds; No Murmurs; No JVD, RRR Abdominal: - - liver palpable at costal margin; spleen nonpalpable Lymphatic: No Cervical Adenopathy Extremities: - - 1+ le edema b/l Skin: No Rash or Ulcers Neurological: - - no asterixis Result Diagrams: 10/29/18 05:20 10/29/18 05:20 Assess/Plan/Problems-Billing Assessment: This is a 58 year old man with chronic pain syndrome who presented to the ED with jaundice and was found to have cirrhosis on imaging. - Patient Problems (1) Acute liver failure Current Visit: Yes Status: Acute Comment: ferritin is >1500 and TIBC is very elevated, suggesting a diagnosis of hemochromatosis Liver biopsy was performed yesterday; results are pending acute hepatitis panel is negative, anti-mitochondrial and anti-smooth muscle antibodies are also negative. may be a transplant candidate but I have not discussed this with him yet no bleeding or encephalopathy (he is sleepy and his ammonia is elevated, but he is not encephalopathic and I do not think this is the cause of his sleepiness) ? role of BB in primary prophylaxis in patients with varices visualized on CT but not endoscopy--> I am treating him for HTN with a BB anyway I have discussed the case with Dr. Chávez who recommends awaiting biopsy results before beginning therapeutic phlebotomy (2) Chronic pain Current Visit: No Status: Acute Code(s): G89.29 - OTHER CHRONIC PAIN SNOMED Code(s): 77688799 Comment: At home take [place] 10/325 6-8x daily as well as Oxycodone 5mg 6-8x daily and Zanaflex. I am giving him oxy and codeine (to replace the hydrocodone )only. Dr. Boss contacted me and noted that zanaflex can cause LFT abnormalities in 5% of people. This would not explain the other findings, but I am discontinuing it so as not to obscure the picture (3) HTN (hypertension) Current Visit: No Status: Acute Code(s): I10 - ESSENTIAL (PRIMARY) HYPERTENSION SNOMED Code(s): 18089186 Comment: improving on metoprolol; can increase dose if better control is needed (4) Thrombocytopenia Current Visit: Yes Status: Acute Code(s): D69.6 - THROMBOCYTOPENIA, UNSPECIFIED SNOMED Code(s): 105257666 Comment: likely liver failure / splenomegaly no evidence of bleeding (5) Coagulopathy Current Visit: Yes Status: Acute Comment: likely due to liver failure no evidence of bleeding Status and Disposition: needs inpatient treatment until biopsy returns so that we can begin treatment
[2018-10-29] MEDS: PROCHLORPERAZINE INJ 5 MG/ML 2 ML VIAL IV PRN (12:49)
--- NOTE | 2018-10-29 15:29 | PN ---
Hospitalist Progress Note Date of Service: 10/29/18 I spoke with transplant rat poisoner Dr. Darnell at [facility] and he accepts Mr. Lobato for transfer for transplant evaluation. There are currently no beds but we will be alerted by the transfer center when one becomes available.
--- NOTE | 2018-10-29 18:03 | ECHO ---
Patient: LEE SPENCER [facility] Rec#: [id number] : 1960 Date: 10/29/2018 Age: 58y Height: 196 cm / 77.2 in Weight: 135.6 kg / 298.9 lbs Sex: M BSA: 2.66 Room#: [facility] Admit Date#: 10/26/2018 Type: Inpatient Referring: Kisha Mercedes MD Reading: Brian Kessler MD Overseamer: [facility] Transthoracic Echocardiogram Indication: Abnormal EKG, hemochromatosis BP: 168/81 HR: 98 Rhythm: NSR with PACs Findings History: HTN, prior heavy ETOH. Technical Comments: The study quality is poor. The study is technically limited due to patient body habitus. Completed at 1645. Left Ventricle: The left ventricular chamber size is normal. Mild concentric left ventricular hypertrophy is observed. Global left ventricular wall motion and contractility are within normal limits. The left ventricle appears hyperdynamic. The estimated ejection fraction is 60-65%. Abnormal left ventricular diastolic function is observed. Abnormal left ventricular diastolic filling is observed, consistent with impaired relaxation. Left Atrium: The left atrium is severely dilated. Right Ventricle: The right ventricle is moderately dilated. The right ventricular global systolic function is normal. Right Atrium: The right atrium is moderately dilated. Aortic Valve: The aortic valve is trileaflet. The aortic valve leaflets are mildly thickened. Systolic excursion of the aortic valve cusps is reduced. There is mild aortic regurgitation. There is borderline aortic stenosis present. Mitral Valve: There is posterior mitral annular calcification. The mitral valve leaflets are mildly thickened. There is mild mitral regurgitation. There is no evidence of mitral stenosis. Tricuspid Valve: The tricuspid valve leaflets are normal. There is trace tricuspid regurgitation. Unable to estimate the right ventricular systolic pressure. There is no tricuspid stenosis. Pulmonic Valve: The pulmonic valve appears normal. There is a trace pulmonic regurgitation. There is no pulmonic stenosis. Pericardium: There is no significant pericardial effusion. A pericardial fat pad is visualized. Aorta: There is mild dilatation of the ascending aorta. There is no dilatation of the aortic arch. There is mild dilatation of the aortic root. Pulmonary Artery: The main pulmonary artery appears normal. Venous: The inferior vena cava is dilated. There is a greater than 50% respiratory change in the inferior vena cava dimension. Summary: There was not any prior study for comparison. Conclusions The study quality is poor. Mild concentric left ventricular hypertrophy is observed. Abnormal left ventricular diastolic filling is observed, consistent with impaired relaxation. The left ventricle appears hyperdynamic. The estimated ejection fraction is 60-65%. The left atrium is severely dilated. The right ventricle is moderately dilated. The right atrium is moderately dilated. The aortic valve leaflets are mildly thickened. Systolic excursion of the aortic valve cusps is reduced. There is mild aortic regurgitation. There is borderline aortic stenosis present. There is posterior mitral annular calcification. There is mild mitral regurgitation. There is mild dilatation of the ascending aorta. There is mild dilatation of the aortic root. Mildly increased LVOT and aortic velocities c/w the hyperdynamic LV function and mild dynamic LVOT turbulence without significant obstruction. Measurements Name Value Normal Range RVIDd (AP) 2D 4.2 cm (0.9 - 2.6) RVDdMajor (2D) 5.1 cm (2.2 - 4.4) RAd ISD 4CH 6 cm (3.4 - 4.9) RA (A4C)W 5 cm (2.9 - 4.6) IVSd (2D) 1.2 cm (0.6 - 1) LVPWd (2D) 1.2 cm (0.6 - 1) LVIDd (2D) 4.7 cm (3.6 - 5.4) LVIDs (2D) 2.9 cm - LV FS (2D) 39 % (25 - 45) Aortic Annulus 2.5 cm (1.4 - 2.6) Ao root diameter (2D) 3.9 cm (2.1 - 3.5) Ascending Ao 3.7 cm (2.1 - 3.4) Aortic arch 2.7 cm (1.8 - 3.4) LA dimension (AP) 2D 6.4 cm (2.3 - 3.8) LAd ISD 4CH 6.4 cm (2.9 - 5.3) LA ISD 4CH W 5.6 cm (2.5 - 4.5) Name Value Normal Range LA ESV BP (A/L) index 54 ml/m2 - Name Value Normal Range MV E-wave Vmax 1.1 m/sec - MV deceleration time 187 msec - MV A-wave Vmax 1.6 m/sec - MV E:A ratio 0.7 ratio - LV septal e' Vmax 0.09 m/sec - LV lateral e' Vmax 0.06 m/sec - LV E:e' septal ratio 12.2 ratio - LV E:e' lateral ratio 18.3 ratio - Name Value Normal Range AV Vmax 2.5 m/sec - AV VTI 45 cm - AV peak gradient 24 mmHg - AV mean gradient 12 mmHg - LVOT Vmax 1.9 m/sec - LVOT VTI 32 cm - LVOT peak gradient 14 mmHg - LVOT mean gradient 6 mmHg - TRAV Vmax 1.2 m/sec - Name Value Normal Range IVC diameter 2.4 cm - Name Value Normal Range PV Vmax 0.9 m/sec - PV peak gradient 3 mmHg -
[2018-10-29] MEDS: RiFAXimin* 550 MG TAB PO SCH (22:32)
[2018-10-30] MEDS: oxyCODONE TAB* 5 MG TAB PO PRN ×3 (01:39→15:28)
[2018-10-30 05:03] LABS: Hematocrit 39 % (42-52); Hemoglobin 13.4 g/dl (14.0-18.0); Mean Corpuscular HGB Conc 35 g/dl (31-36); Mean Corpuscular Hemoglobin 31 pg (27-31); Mean Corpuscular Volume 89 fL (80-94); Mean Platelet Volume 7.9 fL (7.4-10.4); Platelet Count 158 10^3/ul (150-450); Red Blood Count 4.35 10^6/ul (4.00-5.40); Red Cell Distribution Width 18 % (10.5-15); White Blood Count 9.9 10^3/ul (3.5-10.8)
[2018-10-30 05:09] LABS: INR 1.98 (0.77-1.02)
[2018-10-30 05:19] LABS: Albumin 2.9 g/dL (3.2-5.2); Albumin/Globulin Ratio 0.7 (1-3); Globulin 3.9 g/dL (2-4); Total Protein 6.8 g/dL (6.4-8.9)
[2018-10-30 05:35] LABS: ABS Basophils 0 10^3/ul (0-0.2); ABS Eosinophils 0 10^3/ul (0-0.6); ABS Lymphocytes 1.6 10^3/ul (1.0-4.8); ABS Monocytes 1.7 10^3/ul (0-0.8); ABS Neutrophils 6.6 10^3/ul (1.5-7.7); ABS Nucleated RBC 0 10^3/ul; Eosinophil % 0.2 %; Lymphocyte % 16.3 %; Nucleated Red Blood Cells % 0.1
[2018-10-30 05:37] LABS: Indirect Bilirubin 9.9 mg/dL (0.3-1.0); Total Bilirubin 21.2 mg/dL (0.2-1.0)
[2018-10-30] MEDS: RiFAXimin* 550 MG TAB PO SCH ×2 (08:16→20:28)
[2018-10-30] MEDS: Metoprolol Succinate XL TAB* 25 MG PO SCH (08:17)
[2018-10-30] MEDS: Ondansetron INJ* 2 MG/ML VIAL IV PRN (15:29)
--- NOTE | 2018-10-30 16:33 | PN ---
Subjective Date of Service: 10/30/18 Interval History: Pt is feeling lousy. He states his abdomen is bothering him and he describes that as a queasiness. He denies any abdominal pain. He is frustrated with the phlebotomy that has been ongoing as recommended by Dr. Garay. Objective Active Medications: Codeine Sulfate (Codeine Tab*) 30 mg PO Q4H PRN PRN Reason: PAIN Last Admin: 10/29/18 12:48 Dose: 30 mg Heparin Sodium (Porcine) (Heparin Flush Picc/Ml/Cvc(*)) 1 ml FLUSH 0600,1800 [facility]; Protocol Last Admin: 10/30/18 16:20 Dose: 1 ml Lactulose (Lactulose*) 30 ml PO QID [facility] Last Admin: 10/30/18 12:21 Dose: 30 ml Metoprolol Succinate (Toprol Xl Tab*) 12.5 mg PO DAILY [facility] Last Admin: 10/30/18 08:17 Dose: 12.5 mg Ondansetron HCl (Zofran Inj*) 4 mg IV Q6H PRN PRN Reason: NAUSEA Last Admin: 10/30/18 15:29 Dose: 4 mg Oxycodone HCl (Roxycodone Tab*) 10 mg PO Q4H PRN PRN Reason: PAIN Last Admin: 10/30/18 15:28 Dose: 10 mg Pharmacy Profile Note (Scopolamine Patch Remove*) 1 note PATCH OFF Q72H [facility] Prochlorperazine Edisylate (Compazine Inj*) 10 mg IV Q6H PRN PRN Reason: NAUSEA/VOMITING Last Admin: 10/29/18 12:49 Dose: 10 mg Rifaximin (Xifaxan*) 550 mg PO BID [facility] Last Admin: 10/30/18 08:16 Dose: 550 mg Scopolamine (Transderm-Scop 1.5 Mg Patch*) 1 patch TRANSDERM Q72H PRN PRN Reason: NAUSEA/VOMITING Last Admin: 10/28/18 11:54 Dose: 1 patch Vital Signs - 8 hr 10/30/18 10/30/18 10/30/18 10:15 10:57 15:20 Temperature 98.2 F Pulse Rate 93 Respiratory 16 16 Rate Blood Pressure 162/83 145/90 (mmHg) O2 Sat by Pulse 91 Oximetry 10/30/18 15:28 Temperature Pulse Rate Respiratory 18 Rate Blood Pressure (mmHg) O2 Sat by Pulse Oximetry Oxygen Devices in Use Now: None Appearance: Middle aged jaundiced male sitting up in bed, NAD Eyes: - - +icteric sclera Ears/Nose/Mouth/Throat: - - dry oral mucosa Respiratory: Symmetrical Chest Expansion and Respiratory Effort, Clear to Auscultation Cardiovascular: NL Sounds; No Murmurs; No JVD, RRR, - - trace LE edema Abdominal: - - BS+ soft, NT, mildly distended Extremities: No Clubbing, Cyanosis Skin: No Nodules or Sclerosis Neurological: - - slightly lethargic Result Diagrams: 10/30/18 04:40 10/29/18 05:20 Assess/Plan/Problems-Billing Mr Lobato is a 58 yo M who has a h/o chronic pain syndrome who presented to the ER with c/o being jaundiced and was found to have likely acute on chronic liver failure which has ultimately been determined to be secondary to hemochromatosis. - Patient Problems (1) Acute liver failure Current Visit: Yes Status: Acute Comment: Acute on chronic liver failure secondary to hemochromatosis. Dr. Garay recommended 500ml phlebotomy today which has been performed. Genetic testing is pending. The patient has been accepted at [facility] for transplant eval/?chelation. We are currently awaiting a bed offer. Continue Bblocker, continue lactulose and rifaximin for elevated ammonia levels. (2) Coagulopathy Current Visit: Yes Status: Acute Comment: Secondary to liver failure. No signs of bleeding-INR up further today. (3) Nausea & vomiting Current Visit: Yes Status: Acute Code(s): R11.2 - NAUSEA WITH VOMITING, UNSPECIFIED SNOMED Code(s): 80568516 Comment: Continue prn antiemetics. I suspect this is secondary to his liver failure. (4) Thrombocytopenia Current Visit: Yes Status: Acute Code(s): D69.6 - THROMBOCYTOPENIA, UNSPECIFIED SNOMED Code(s): 754124795 Comment: Likely secondary to liver failure/splenomegaly. (5) Chronic pain Current Visit: Yes Status: Acute Code(s): G89.29 - OTHER CHRONIC PAIN SNOMED Code(s): 68951776 Comment: Continue prn oxycodone. (6) DVT (deep venous thrombosis) Current Visit: Yes Status: Acute Comment: SCDs (7) Full code status Current Visit: Yes Status: Acute Code(s): Z78.9 - OTHER SPECIFIED HEALTH STATUS SNOMED Code(s): 464663728 Status and Disposition: .
[2018-10-30 19:06] VITALS: BP 142/82
--- NOTE | 2018-10-30 19:37 | DS ---
DATE OF ADMISSION: 10/26/18 DATE OF TRANSFER: To [place] 10/30/18 PRIMARY CARE PROVIDER: None. PRINCIPAL DIAGNOSES: 1. Acute on chronic liver failure secondary to hemochromatosis. 2. Elevated ammonia level without clear encephalopathy. SECONDARY DIAGNOSES: 1. Osteoarthritis. 2. Chronic pain. MEDICATIONS: 1. Codeine 30 mg p.o. every 4 hours p.r.n. pain. 2. Lactulose 30 mL p.o. 4x daily. 3. Metoprolol XL 12.5 mg p.o. daily. 4. Zofran 4 mg IV every 4 hours p.r.n. nausea. 5. Oxycodone 10 mg p.o. every 4 hours p.r.n. pain. 6. Compazine 10 mg IV every 6 hours p.r.n. nausea. 7. Xifaxan 550 mg p.o. b.i.d. 8. Scopolamine 1.5 mg one patch transdermal every 72 hours. HOSPITAL COURSE: Mr. Lobato is a 58-year-old male who presented to the emergency room on 10/26/18 with complaints of turning yellow. The patient had not noticed his change in skin color, however a friend noted that his eyes and skin had turned yellow. He went to [facility] on the Friday prior to admission, was found to have an elevated bilirubin and was told to go to the emergency room. He refused. Patient then presented to the emergency room on the night prior to admission and again was recommended for admission, however, he again refused at that time. The patient then presented back on the and at that point was agreeable to being admitted to the hospital. Patient has history of heavy drinking, but reportedly has been abstinent from alcohol over the last 30 years. There is no family history of liver disease. Ultimately the patient's LFTs were found to be markedly elevated with an AST of 886 on admission, now down to 488; an ALT of 552 on admission, now down to 389; bilirubin that has been consistently in the 21-22 range. Patient's ammonia level has been elevated at 79 and 86 both times when checked, however again, he has no signs of encephalopathy. The patient was seen in consultation by Dr. Noonan from the gastroenterology department. He recommended MRCP and evaluation for possible hemochromatosis. The patient's ferritin is greater than 1500. His percent iron saturation is 96%. His total iron level is 219. His transferrin is low at 163. Liver biopsy was performed on 10/28/18. Pathology from this reveals chronic hepatitis, grade 2 portal and lobular infiltrates with focal hepatocellular necrosis, stage 4 cirrhosis most likely secondary to hemochromatosis as abundant brown pigment is noted throughout the liver parenchyma, an iron stain with appropriate controls demonstrated increased iron deposition. A trichrome stain confirmed cirrhosis. At that point contact was made with Dr. Darnell at [facility] who accepted the patient in transfer for transplant evaluation. Dr. Garay saw the patient on 10/30/18 and recommended 500 mL phlebotomy today and this was performed. Patient tolerated the procedure well. The patient has been given a bed offer at [place] and will be discharged there this evening. FOLLOWUP CONCERNS: Patient is being transferred to [place] this evening, . ACTIVITY LEVEL: Bedrest. CONDITION ON DISCHARGE: Stable. TIME SPENT: 40 minutes spent discharging this patient. [id number]/CPS #: [id number] MTDD
[2018-10-30] MEDS: PROCHLORPERAZINE INJ 5 MG/ML 2 ML VIAL IV PRN (20:28)
[2018-10-31] MEDS ORDERED: Scopolamine PATCH Remove* 1 NOTE MISC PATCH OFF SCH (12:00)
== END 2018-10-30 21:35 | disposition short-term general hospital (02) | DRG 442 ==
LOC: ED 09:37 → MED 12:19
PROVIDERS: ADMIT Internal Medicine; ATTEND Hospitalist
PROC: 0FB03ZX Excision of Liver, Percutaneous Approach, Diagnostic (ICD-10-PCS; principal; 2018-10-23)
DX: K72.00 Acute and subacute hepatic failure without coma (principal); R18.8 Other ascites; D68.9 Coagulation defect, unspecified; E83.119 Hemochromatosis, unspecified; K72.10 Chronic hepatic failure without coma; K74.60 Unspecified cirrhosis of liver; K73.9 Chronic hepatitis, unspecified; G89.4 Chronic pain syndrome; M17.9 Osteoarthritis of knee, unspecified; K82.8 Other specified diseases of gallbladder; F40.231 Fear of injections and transfusions; D69.6 Thrombocytopenia, unspecified; I10 Essential (primary) hypertension; Z80.0 Family history of malignant neoplasm of digestive organs; Z82.49 Family history of ischemic heart disease and other diseases of the circulatory system; R11.2 Nausea with vomiting, unspecified
CPT/HCPCS: 36415; 47000; 74181; 76376; 76705; 76942; 80053; 80074; 80076; 80329; 81003; 81256; 82105; 82140; 82247; 82248; 82390; 82728; 83516; 83540; 83550; 83605; 83690; 83735; 83880; 84484; 85025; 85027; 85610; 85730; 86140; 86255; 86850; 86900; 86901; 88307; 88313; 93005; 93306; 99285; A9270-GY; G0480; J0780; J2270; J2405; J3010; J3475

== ENCOUNTER 2018-12-15 13:33 | Inpatient (IN) | payer MEDICARE, MEDICAID ==
--- OUTSIDE RECORDS SUMMARY | 2018-12-15 13:51 | XMS REPORT | Continuity of Care Document ---
:1960 External Reference #:[id number] Author Name WellingtonStarr peacock Care Team Providers Name Role Phone Meme Marquez MD Primary Care Physician Unavailable Payers Type Date Identification Numbers Payment Provider Subscriber Policy Number: [id number] Medicare Delfin Lobato PayID: [id number] [address] [place] [address] Policy Number: [id number] Medicaid Delfin Lobato Group Name: 1 1 [address] PayID: [id number] [place] [address] Advance Directives Description No Information Available Problems Date Description Provider Status Onset: 06/01/2015 Closed intertrochanteric fracture Lorna Patel M.D. Active Onset: 08/14/2015 Displaced intertrochanteric fracture Lorna Patel M.D. Active of right femur, subsequent encounter for closed fracture with routine healing Family History Date Family Member(s) Problem(s) Comments General Diabetes Social History Type Date Description Comments Sex Unknown Lives With Alone ETOH Use Denies alcohol use Tobacco Use Start: Unknown Patient has never smoked Smoking Status Reviewed: 11/30/18 Patient has never smoked Exercise Type/Frequency Exercises regularly Allergies, Adverse Reactions, Alerts Date Description Reaction Status Severity Comments 06/01/2015 Bacitracin Active 06/01/2015 Neosporin Active 06/01/2015 Polymyxin B Active 06/01/2015 Adhesive Tape Active 06/01/2015 Latex Active Medications Medication Date Status Form Strength Qnty SIG Indications Ordering Provider Dilaudid Active Tablets 2mg 1 tab Unknown 00 every 4-6 hours as needed pain Zanaflex Hx Capsules 4mg twice a Unknown 00 - day as 11/29/19 needed 19 Percocet Hx Tablets 5-325mg 1-2 tabs Unknown 00 - by mouth 11/29/19 q4-6 19 hours as needed pain Hydrocodone Hx Solution Unknown Bitartrate/Acet 00 - aminophen 11/29/19 19 Immunizations Description No Information Available Vital Signs Date Vital Result Comment 11/30/2018 9:29am Height 74 inches 6'2" Weight 308.00 lb Heart Rate 92 /min BP Systolic Sitting 86 mmHg BP Diastolic Sitting 54 mmHg Body Temperature 98.5 F O2 % BldC Oximetry 98 % BMI (Body Mass Index) 39.5 kg/m2 08/14/2015 10:47am Height 77 inches 6'5" Weight 290.00 lb Pain Level 3 BMI (Body Mass Index) 34.4 kg/m2 07/03/2015 10:28am Height 77 inches 6'5" Weight 290.00 lb Pain Level 5 BMI (Body Mass Index) 34.4 kg/m2 06/01/2015 11:41am Height 77 inches 6'5" Weight 290.00 lb Heart Rate 89 /min BP Systolic Sitting 114 mmHg BP Diastolic Sitting 69 mmHg Respiratory Rate 20 /min Body Temperature 98.8 F Pain Level 8 BMI (Body Mass Index) 34.4 kg/m2 Results Test Date Facility Test Result H/L Range Note Inr/Protime 11/16/2018 [facility] Inr 1.44 High 0.77-1.[address] [place] [address] [phone] CBC Auto 11/16/2018 [facility] White Blood 10.1 10^3/uL N 3.5- 10.[address] [place] [address] [phone] Red Blood Count 3.18 10^6/uL Low 4.00-5.40 Hemoglobin 10.9 g/dL Low 14.0-18.0 Hematocrit 31 % Low 42-52 Mean Corpuscular Volume 98 fL High 80-94 Mean Corpuscular Hemoglobin 34 pg High 27-31 Mean Corpuscular HGB Conc 35 g/dL N 31-36 Red Cell Distribution Width 21 % High 10.5-15 Platelet Count 174 10^3/uL N 150-450 Mean Platelet Volume 8.3 fL N 7.4-10.4 Abs Neutrophils 6.7 10^3/uL N 1.5-7.7 Abs Lymphocytes 1.4 10^3/uL N 1.0-4.8 Abs Monocytes 1.7 10^3/uL High 0-0.8 2 Abs Eosinophils 0.1 10^3/uL N 0-0.6 Abs Basophils 0.1 10^3/uL N 0-0.2 Abs Nucleated RBC 0 10^3/uL Granulocyte % 66.8 % Lymphocyte % 13.6 % Monocyte % 17.3 % Eosinophil % 1.3 % Basophil % 1.0 % Nucleated Red Blood Cells % 0 Comp Metabolic Panel 11/16/2018 [facility] Sodium 130 mmol/L Low 135-[address] [place] [address] [phone] Potassium 3.4 mmol/L Low 3.5-5.0 Chloride 98 mmol/L Low 101-111 Co2 Carbon Dioxide 22 mmol/L N 22-32 3 Anion Gap 10 mmol/L N 2-11 Glucose 134 mg/dL High 70-100 4 Blood Urea Nitrogen 29 mg/dL High 6-24 5 Creatinine 1.82 mg/dL High 0.67-1.17 6 BUN/Creatinine Ratio 15.9 N 8-20 Calcium 8.9 mg/dL N 8.6-10.3 7 Total Protein 5.8 g/dL Low 6.4-8.9 8 Albumin 3.4 g/dL N 3.2-5.2 9 Globulin 2.4 g/dL N 2-4 Albumin/Globulin Ratio 1.4 N 1-3 Alkaline Phosphatase 136 U/L High 34-104 10 Alt 133 U/L High 7-52 11 Ast 216 U/L High 13-39 12 Egfr Non- 38.3 >60 Egfr 46.4 >60 13 Total Bilirubin 24.00 mg/dL High 0.2-1.0 14 Laboratory test 11/16/2018 [facility] Phosphorus 3.3 mg/dL N 2.5-5.0 [address] [place] [address] [phone] Magnesium 2.7 mg/dL N 1.9-2.7 16 1 Will discuss at visit 2 Consistent with Previous Results Reported on 10/30/18 3 Specimen Icteric. Result may not be valid. 4 Specimen Icteric. Result may not be valid. 5 Specimen Icteric. Result may not be valid. 6 Specimen Icteric. Result may not be valid. 7 Specimen Icteric. Result may not be valid. 8 Specimen Icteric. Result may not be valid. 9 Specimen Icteric. Result may not be valid. 10 Specimen Icteric. Result may not be valid. 11 Specimen Icteric. Result may not be valid. 12 Specimen Icteric. Interpret results with caution. 13 Because ethnic data is not always readily available, this report includes an eGFR for both -Americans and non- Americans. The National Kidney Disease Education Program (NKDEP) does not endorse the use of the MDRD equation for patients that are not between the ages of 18 and 70, are , have extremes of body size, muscle mass, or nutritional status, or are non- or non-. According to the National Kidney Foundation, irrespective of diagnosis, the stage of the disease is based on the level of kidney function: Stage Description GFR(mL/min/1.73 m(2)) 1 Kidney damage with normal or decreased GFR 90 2 Kidney damage with mild decrease in GFR 60-89 3 Moderate decrease in GFR 30-59 4 Severe decrease in GFR 15-29 5 Kidney failure <15 (or dialysis) 14 Critical Result TBIL:24.00 Called to KAREEN at: 14:30:16 by:[id number] Read back by:KAREEN 15 Specimen Icteric. Result may not be valid. 16 Specimen Icteric. Interpret results with caution. [MG] affected by ICTERUS Procedures Date Code Description Status 10/29/2018 24950 ECHO Transthorasic Realtime 2D W Doppler & Color Flow Hosp Completed 07/09/2018 13333 Removal Devitalization Tissue Wound Less Than Equal 20 Completed Square CM 07/02/2018 63303 Application Skin Substitute Graft Trunk,Arms Lets Up To Completed 100 SQ CM 06/25/2018 85659 Application Skin Substitute Graft Trunk,Arms Lets Up To Completed 100 SQ CM 06/11/2018 17664 Application Skin Substitute Graft Trunk,Arms Lets Up To Completed 100 SQ CM 06/04/2018 04647 Application Skin Substitute Graft Trunk,Arms Lets Up To Completed 100 SQ CM 05/28/2018 94031 Application Skin Substitute Graft Trunk,Arms Lets Up To Completed 100 SQ CM 05/21/2018 04852 Removal Devitalization Tissue Wound Less Than Equal 20 Completed Square CM 08/26/2017 73375 Removal Devitalization Tissue Wound Less Than Equal 20 Completed Square CM 08/19/2017 91561 Removal Devitalization Tissue Wound Less Than Equal 20 Completed Square CM 08/12/2017 67734 Removal Devitalization Tissue Wound Less Than Equal 20 Completed Square CM 08/05/2017 27070 Removal Devitalization Tissue Wound Less Than Equal 20 Completed Square CM 07/29/2017 29640 Debridement Skin,& sq Tissue Completed 07/22/2017 88758 Debridement Skin,& sq Tissue Completed 05/30/2016 96777 Removal Devitalization Tissue Wound Less Than Equal 20 Completed Square CM 05/16/2016 75295 Removal Devitalization Tissue Wound Less Than Equal 20 Completed Square CM 04/25/2016 58119 Debridement Skin,& sq Tissue Completed 05/21/2015 33948 ORIF Plate/Screw (TX Interochanteric/Oralia Or Sub Femoral Completed FX W.Luz Elena 05/21/2015 77192 ORIF Plate/Screw (TX Interochanteric/Oralia Or Sub Femoral Completed FX W.Luz Elena Encounters Type Date Location Provider Dx Diagnosis Office Visit 10/30/2018 [facility] Perla Steel, E83.119 Hemochromatosis, 1:51p Assoc,pc D.O. 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 Office Visit 10/28/2018 1:50p [facility] Kisha K72.00 Acute and Assoc,caden Mercedes DO subacute Hospitalists hepatic failure without coma I10 Essential (primary) hypertension D69.6 Thrombocytopenia, unspecified G89.29 Other chronic pain R17 Unspecified jaundice R11.2 Nausea with vomiting, unspecified 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 [facility] K[facility].00 [facility] and Assoc,cdaen Mercedes DO subacute Hospitalists hepatic failure without coma G89.29 Other chronic pain I10 Essential (primary) hypertension R17 Unspecified jaundice Office Visit 10/26/2018 1:50p [facility] Kisha K72.00 Acute and Assoc,caden Mercedes, subacute Hospitalists hepatic failure without coma R17 Unspecified jaundice 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 D69.6 Thrombocytopenia, unspecified Office Visit 07/16/2018 9:15a Wound Care Franko Betts I87.301 Chronic venous Center AT [facility] Osmany Vera hypertension w/o comp of r low extrem I87.302 Chronic venous hypertension w/o comp of l low extrem S81.801D Unspecified open wound, right lower leg, subs encntr S81.802D Unspecified open wound, left lower leg, subsequent encounter Office Visit 05/21/2018 1:00p Wound Care Franko Betts L97.829 Non-pressure Center AT [facility] Osmany Vera chronic ulcer oth prt l low leg w unsp severity L97.819 Non-pressure chronic ulcer oth prt r low leg w unsp severity I87.313 Chronic venous hypertension w ulcer of bilateral low extrm S81.801A Unspecified open wound, right lower leg, initial encounter S81.802A Unspecified open wound, left lower leg, initial encounter Office Visit 09/11/2017 10:15a Wound Care Franko Rivas87.312 Chronic venous Center AT [facility] Osmany Vera hypertension w ulcer of l low extrem I87.311 Chronic venous hypertension w ulcer of r low extrem S81.802D Unspecified open wound, left lower leg, subsequent encounter S81.801D Unspecified open wound, right lower leg, subs encntr M13.861 Other specified arthritis, right knee M13.862 Other specified arthritis, left knee Z83.3 Family history of diabetes mellitus E66.9 Obesity, unspecified Office Visit 09/04/2017 10:30a Wound Care Franko Rivas87.312 Chronic venous Center AT [facility] Osmany Vera hypertension w ulcer of l low extrem M13.861 Other specified arthritis, right knee M13.862 Other specified arthritis, left knee Z83.3 Family history of diabetes mellitus E66.9 Obesity, unspecified Office Visit 06/06/2016 2:07p Wound Care Franko Thayer312 Chronic venous Center AT [facility] Osmany Vera hypertension w ulcer of l low extrem Office Visit 04/25/2016 12:27p Wound Care Franko Betts I87.312 Chronic venous Center AT [facility] Osmany Vera hypertension w ulcer of l low extrem M13.861 Other specified arthritis, right knee M13.862 Other specified arthritis, left knee Office 05/24/2015 [facility] 716.90 Arthropathy Visit 1:30p Assoc,caden Escobar, N.P. Unspec Site Hospitalists Unspec 820.21 FX Pertrochanteric Intertrochanteric Section Closed 338.29 Other Chronic Pain 401.9 Hypertension Unspec Office 05/23/2015 [facility] 716.90 Arthropathy Visit 1:29p Assoc,caden Escobar, N.P. Unspec Site Hospitalists Unspec 820.21 FX Pertrochanteric Intertrochanteric Section Closed 338.29 Other Chronic Pain 401.9 Hypertension Unspec Office 05/22/2015 [facility] 716.90 Arthropathy Visit 1:28p Assoc,caden Escobar, N.P. Unspec Site Hospitalists Unspec 338.29 Other Chronic Pain 820.21 FX Pertrochanteric Intertrochanteric Section Closed 401.9 Hypertension Unspec Office Visit 05/21/2015 1:27p [facility] Mari S. 716.90 Arthropathy Assoc,caden Holliday, N.P. Unspec Site Hospitalists Unspec 338.29 Other Chronic Pain 820.21 FX Pertrochanteric Intertrochanteric Section Closed 401.0 Hypertension Malignant Office 05/20/2015 [facility] Alvarez 820.21 FX Pertrochanteric Visit 1:23p Assoc,caden Haines N.P. Intertrochanteric Hospitalists Section Closed 716.90 Arthropathy Unspec Site Unspec 338.29 Other Chronic Pain Plan of Treatment Future Appointment(s):12/21/2018 2:20 pm - Meme Marquez MD at [facility]11/30/2018 - Meme Marquez MDK74.60 Unspecified cirrhosis of liverComments:MARIA GUADALUPE [facility]; all recordsF/U 3 weeks
[2018-12-15] MEDS ORDERED: NS 0.9% 1000 ML** 500 ML IV ONE (14:06)
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
[2018-12-15 14:29] LABS: Hematocrit 35 % (42-52); Hemoglobin 11.9 g/dl (14.0-18.0); Mean Corpuscular HGB Conc 34 g/dl (31-36); Mean Corpuscular Hemoglobin 31 pg (27-31); Mean Corpuscular Volume 93 fL (80-94); Mean Platelet Volume 7.5 fL (7.4-10.4); Platelet Count 157 10^3/ul (150-450); Red Blood Count 3.78 10^6/ul (4.00-5.40); Red Cell Distribution Width 17 % (10.5-15)
[2018-12-15 14:44] LABS: Activated Partial Thrombo Time 33.4 seconds (26.0-36.3); INR 1.37 (0.77-1.02)
[2018-12-15 14:49] LABS: Albumin 2.7 g/dL (3.2-5.2); Albumin/Globulin Ratio 0.7 (1-3); BUN/Creatinine Ratio 14.2 (8-20); C Reactive Protein 64.99 mg/L (<8.01); Calcium 8.9 mg/dL (8.6-10.3); EGFR African American 8.5 (>60); EGFR Non-African American 7.1 (>60); Globulin 3.8 g/dL (2-4); Total Protein 6.5 g/dL (6.4-8.9)
[2018-12-15 14:53] LABS: BNP 110 pg/mL (<=100)
[2018-12-15 14:55] LABS: Magnesium 2.7 mg/dL (1.9-2.7); Potassium 6.5 mmol/L (3.5-5.0); Total Bilirubin 12.3 mg/dL (0.2-1.0); Troponin I 0.06 ng/mL (<0.04)
[2018-12-15 15:14] LABS: ABS Basophils 0 10^3/ul (0-0.2); ABS Eosinophils 0 10^3/ul (0-0.6); ABS Lymphocytes 0.8 10^3/ul (1.0-4.8); ABS Monocytes 1.2 10^3/ul (0-0.8); ABS Nucleated RBC 0 10^3/ul; Eosinophil % 0.2 %; Lymphocyte % 5.4 %; Nucleated Red Blood Cells % 0
[2018-12-15] MEDS ORDERED: Dextrose 50% VIAL 50 ml IV PRN (15:15)
[2018-12-15] MEDS ORDERED: Insulin REGULAR(*) 1 UNITS UNIT IV PUSH ONE (15:15)
[2018-12-15] MEDS ORDERED: Albumin Human 5%* 12.5 GM/250 ML BTL IV ONE (15:42)
[2018-12-15] MEDS ORDERED: Dextrose 50% Syringe 50 ML* 25 GM/50 ML SYRINGE ONE ×2 (17:21→22:11)
[2018-12-15] MEDS ORDERED: NS 0.9% 1000 ML** 1,000 ML IV ONE (17:37)
[2018-12-15] MEDS ORDERED: Vancomycin(*) 1,000 MG in NS 0.9% 250 ML* 250 ML IVPB ONE (17:41)
[2018-12-15] MEDS ORDERED: Albuterol 2.5 MG/3 ML NEB.SOL* (0.083%) INH PRN (17:54)
[2018-12-15] MEDS ORDERED: Vancomycin per Pharmacy* NOTE FOLLOW UP SCH (18:00)
[2018-12-15] MEDS ORDERED: Zosyn per Pharmacy* NOTE FOLLOW UP SCH (18:00)
[2018-12-15] MEDS ORDERED: Piperacillin/Tazobac ADVAN(*) 3.375 GM in NS 0.9% 100 ML* 100 ML IVPB SCH (18:00)
--- NOTE | 2018-12-15 18:03 | HP ---
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 He left 11/09. Since then family has stated he was doing well up until maybe 5-7 days back. ~2 weeks back he injured his left leg, which was already swollen, and had an open wound. Since then the wound and left have gotten worse, left has started to turn red, increasing drainage from serous to more pus like. The right leg also has an injury and that may have also been on purpose. The right leg turned red with some mild drainage compared to left leg. They report confusion x3 days. Mild SOB on exertion x3 days. LE swelling has been increased for many days. No diarrhea/n/v. Chills+ for 3 days. Patient states he continued taking Lasix and lactulose/rifaxamin. He reports decreased urine output. In ER, temp 97, BP 90- 100s, HR 90s, on RA sat 99%. Given Lasix, then albumin, calcium, d50 inj and insulin for hyperkalemia in ER ROS: negative except for pertinent positives mentioned above. History obtained from family and patient. 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 Brother dies of pancreatic Ca Social History: Alcohol-stopped 30yrs back, Smoking-none , Drug use-marijuana daily Allergies: Allergies Allergy/AdvReac Type Severity Reaction Status Date / Time bacitracin Allergy Rash Verified 12/15/18 13:38 [From Neosporin ([id number])] neomycin Allergy Rash Verified 12/15/18 13:38 [From Neosporin ([id number])] polymyxin B Allergy Rash Verified 12/15/18 13:38 [From Neosporin ([id number])] Adhesive Tape AdvReac See Comment Verified 12/15/18 13:38 Home Medications: Furosemide TAB* [Lasix TAB*] 20 mg PO QAM 12/15/18 [History Confirmed 12/15/18] Hydromorphone HCl [Dilaudid] 2 - 4 mg PO .Q6-8H PRN MDD 12 mg 12/15/18 [History Confirmed 12/15/18] Lactulose* 30 ml PO BID 12/15/18 [History Confirmed 12/15/18] Metoprolol Succinate XL TAB* [Toprol XL TAB*] 12.5 mg PO DAILY 12/15/18 [ History Confirmed 12/15/18] Ondansetron TAB* [Zofran 4 MG Tab*] 8 mg PO Q8HR PRN 12/15/18 [History Confirmed 12/15/18] RiFAXimin* [Xifaxan*] 550 mg PO BID 12/15/18 [History Confirmed 12/15/18] Spironolactone (NF) [Spironolactone 50 MG (NF)] 50 mg PO DAILY 12/15/18 [ History Confirmed 12/15/18] Tele: sinus tachy Vitals: Vital Signs Temp 97.0 F 12/15/18 13:35 Pulse 97 12/15/18 16:13 Resp 24 12/15/18 13:35 BP 102/52 12/15/18 16:13 Pulse Ox 99 12/15/18 16:13 Intake & Output 12/14/18 12/15/18 12/15/18 18:59 06:59 18:59 Weight 134.717 kg O2/Vent: RA Infusions: heplock Current Medications: Dextrose (Dextrose 50% Vial 50 Ml*) 50 ml IV ONCE PRN PRN Reason: hyperkalemia Last Admin: 12/15/18 17:39 Dose: 50 ml Hydromorphone HCl (Dilaudid Inj*) 1 mg IV SLOW PU Q4H PRN PRN Reason: PAIN - SEVERE Hydromorphone HCl (Dilaudid Tab*) 2 mg PO Q4H PRN PRN Reason: PAIN - MODERATE Sodium Chloride (Ns 0.9% 1000 Ml) 1,000 mls @ 1,000 mls/hr IV ONCE ONE Stop: 12/15/18 18:36 Vancomycin HCl 1,000 mg/ (Sodium Chloride) 250 mls @ 166.667 mls/hr IVPB ONCE ONE Stop: 12/15/18 19:10 Piperacillin Sod/Tazobactam (Sod 3.375 gm/ Sodium Chloride) 100 mls @ 25 mls/ hr IVPB Q12H [facility] Pharmacy Consult (Vancomycin Per Pharmacy*) 1 note FOLLOW UP .VANC PER PHARMACY [facility] Pharmacy Consult (Zosyn Per Pharmacy*) 1 note FOLLOW UP .ZOSYN PER PHARMACY [facility] Rifaximin (Xifaxan*) 550 mg PO BID [facility] Physical Exam: General: awake, slightly slower to respond, semi-alert, no distress, no diaphoresis Head: normocephalic, atraumatic HEENT: no pallor, no icterus, moist mucous membranes Neck: soft, supple, no jvd CVS: tachy, regular, no murmur Resp: bilateral air entry, no rhales/wheeze/rhonchi, no acc muscle use Abdomen: soft, nontender, nondistended, bowel sounds + Ext: pulses+, warm; diffuse redness in bilateral LE with erythema and gross edema, left lower leg has open wound with some purulent like material and right lower leg has another much small wound Skin: as above Neuro: awake, tired, alert, orientedx3, moving all extremities Labs: Laboratory Results - last 24 hr 12/15/18 12/15/18 12/15/18 14:19 14:19 14:19 WBC 15.0 H RBC 3.78 L Hgb 11.9 L Hct 35 L MCV 93 MCH 31 MCHC 34 RDW 17 H Plt Count 157 MPV 7.5 Neut % (Auto) 86.5 Lymph % (Auto) 5.4 [place] % (Auto) 7.7 Eos % (Auto) 0.2 Baso % (Auto) 0.2 Absolute Neuts (auto) 13.0 H Absolute Lymphs (auto) 0.8 L Absolute Monos (auto) 1.2 H Absolute Eos (auto) 0 Absolute Basos (auto) 0 Absolute Nucleated RBC 0 Nucleated RBC % 0 INR (Anticoag Therapy) APTT Sodium 124 L Potassium 6.5 H* Chloride 94 L Carbon Dioxide 16 L Anion Gap 14 H BUN 112 H Creatinine 7.88 H Est GFR ( Amer) 8.5 Est GFR (Non-Af Amer) 7.1 BUN/Creatinine Ratio 14.2 Glucose 71 Lactic Acid 3.3 H* Calcium 8.9 Magnesium 2.7 Total Bilirubin 12.30 H* AST 104 H ALT 61 H Alkaline Phosphatase 135 H Ammonia Total Creatine Kinase 118 Troponin I 0.06 H* C-Reactive Protein 64.99 H B-Natriuretic Peptide Total Protein 6.5 Albumin 2.7 L Globulin 3.8 Albumin/Globulin Ratio 0.7 L Amylase 50 Lipase 76 12/15/18 12/15/18 14:19 14:19 WBC RBC Hgb Hct MCV MCH MCHC RDW Plt Count MPV Neut % (Auto) Lymph % (Auto) [place] % (Auto) Eos % (Auto) Baso % (Auto) Absolute Neuts (auto) Absolute Lymphs (auto) Absolute Monos (auto) Absolute Eos (auto) Absolute Basos (auto) Absolute Nucleated RBC Nucleated RBC % INR (Anticoag Therapy) 1.37 H APTT 33.4 Sodium Potassium Chloride Carbon Dioxide Anion Gap BUN Creatinine Est GFR ( Amer) Est GFR (Non-Af Amer) BUN/Creatinine Ratio Glucose Lactic Acid Calcium Magnesium Total Bilirubin AST ALT Alkaline Phosphatase Ammonia 68 H Total Creatine Kinase Troponin I C-Reactive Protein B-Natriuretic Peptide 110 H Total Protein Albumin Globulin Albumin/Globulin Ratio Amylase Lipase Imaging: cxr 12/15 - no acute infiltrate Assessment: 58y M w/pmhx of HTN, Stage 4 Cirrhosis 2/2 to hemochromatosis; Recent admission to [facility], found to have cirrhosis, transferred to [place] for Liver transplant workup but left AMA during workup. He left 11/09. Since then family has stated he was doing well up until maybe 5-7 days back. ~2 weeks back he injured his left leg, which was already swollen, and had an open wound. Since then the wound and left have gotten worse, left has started to turn red, increasing drainage from serous to more pus like. The right leg also has an injury and that may have also been on purpose. The right leg turned red with some mild drainage compared to left leg. They report confusion x3 days. Mild SOB on exertion x3 days. LE swelling has been increased for many days. No diarrhea/n/v. Chills+ for 3 days. Patient states he continued taking Lasix and lactulose/rifaxamin. He reports decreased urine output. In ER, temp 97, BP 90- 100s, HR 90s, on RA sat 99%. -Severe sepsis -Bilateral LE Cellulitus -MELISSA -Hyperkalemia -Metabolic Acidosis -Cirrhosis -delirium Plan: Neuro- some confusion, otherwise awake and can follow commands. sluggish responses. delirium prec. asp prec. CVS- BP 90-low 100s. LA elevated, WBC elevated, tachycardic. Initial sepsis protocol, will bolus 1 L NS now, has evidence of fluid overload in LE so will give fluid as tolerated, concern of further overlooad. IV abx. Will at some point need to diurese. Resp- RA, no distress. CXR without infiltrate. Bronchodilators PRN. Asp prec ID- temp 97, wbc 15. Bilateral LE erythema, open wounds, drainage+, edema+. CXR withotu focal infiltrate. Blood cx to be sent. Urinalysis and culture to be sent. Empiric IV abx for cellulitus to cover gram+/anaerobes, IV zosyn (days#1) and Vanco 1gm x1 (days#1) GI- NPO, trial of clear liquid diet if awake/alert. -history of cirrhosis, noted low albumin and elevated Tbili (which is lower than prior). -possible hepato renal but would hydrate now, more septic picture. -cont rifaxamin for now; hold lactulose till BP stable and sepsis resolved/MELISSA resolved. -check ammonia tomorrow Renal- MELISSA, Cr 7, hyperkalemia, metabolic acidosis 2/2 to elevated LA likely. LA may be from liver also and this may be a decompensated cirrhosis. -clinicaly has been on diuretics, lactulose, poor po intake for 1 week -CXR clear -start IV NS bolus 1 Liter, then NS hydration for now slow; albumin 5% boluses would be good for renal perfsuion in cirrhosis also. hold diuretics. -reid+ Heme- anemia, hg 11-12, no bleeding noted. Platelets okay. INR 1.3. Maintain hg> 7. DVT proph with chem proph. Endo- fingerstick prn. Musculsk- pressure ulcer prophylaxis. Bedrest. Wounds- wound care to Lower ext for wounds. Nutrition- reg diet DVT prophylaxis: heparin sq GI prophylaxis: h2b Central Line: no Arterial Line: no Reid Cathetor: yes Disposition: Patient requires Critical Care/ICU for severe sepsis, MELISSA, hyperkalemia, cirrhosis, delirium Patient Clinical Status: guarded Code Status: full code Total Critical Care time is 45 minutes, excluding procedures/teaching Ishan Monge MD Branch General Manager (Electronically Signed)
--- NOTE | 2018-12-15 18:06 | PN ---
Progress Note - Progress Note Date of Service: 12/15/18 Note: Patient does have evidence of fluid overload, will not give complete IVF sepsis 30ml/kg bolus load as per protocol; start with 1 L NS and will administer as tolerated. Ishan Monge MD Making Department Preparer
[2018-12-15] MEDS ORDERED: ZOSYN 3.375 GM x ONE DOSE over 30 miuntes IVPB ×2 (18:30)
[2018-12-15] MEDS ORDERED: Vancomycin(*) 2,000 MG in NS 0.9% 500 ML* 500 ML IVPB ONE (19:30)
[2018-12-15] MEDS ORDERED: NS 0.9% 500 ML* 500 ML IV ONE (20:09)
[2018-12-15] MEDS: RiFAXimin* 550 MG TAB PO SCH (21:58)
[2018-12-15 22:08] LABS: BUN/Creatinine Ratio 14.3 (8-20); Calcium 8.5 mg/dL (8.6-10.3); EGFR African American 8.5 (>60)
[2018-12-15 22:09] LABS: Potassium 6.2 mmol/L (3.5-5.0)
[2018-12-15] MEDS ORDERED: Albumin Human 5%* 25 GM/500 ML BTL IV ONE (23:00)
[2018-12-15] MEDS ORDERED: ALBUMIN HUMAN 5% IV ONE (23:00)
[2018-12-16] MEDS ORDERED: Albumin Human 5%* 25 GM/500 ML BTL IV ONE
[2018-12-16] MEDS ORDERED: Phenylephrine INJ* 50 MG in NS 0.9% 250 ML* 245 ML IV SCH (02:00)
[2018-12-16] MEDS: HYDROmorphone INJ1* 1 MG/ML SYRINGE IV SLOW PU PRN ×2 (04:48→08:58)
[2018-12-16 05:46] LABS: Hematocrit 27 % (42-52); Hemoglobin 9.4 g/dl (14.0-18.0); Mean Corpuscular HGB Conc 35 g/dl (31-36); Mean Corpuscular Hemoglobin 32 pg (27-31); Mean Corpuscular Volume 93 fL (80-94); Mean Platelet Volume 7.9 fL (7.4-10.4); Platelet Count 84 10^3/ul (150-450); Red Blood Count 2.92 10^6/ul (4.00-5.40); Red Cell Distribution Width 17 % (10.5-15); White Blood Count 14.6 10^3/ul (3.5-10.8)
[2018-12-16 05:56] LABS: Albumin 2.7 g/dL (3.2-5.2); BUN/Creatinine Ratio 14.7 (8-20); Calcium 8.3 mg/dL (8.6-10.3); EGFR African American 8.6 (>60); EGFR Non-African American 7.1 (>60); Globulin 2.8 g/dL (2-4); Indirect Bilirubin 4.8 mg/dL (0.3-1.0); Total Bilirubin 10.5 mg/dL (0.2-1.0); Total Protein 5.5 g/dL (6.4-8.9)
[2018-12-16 05:57] LABS: Potassium 6.3 mmol/L (3.5-5.0)
[2018-12-16] MEDS: ZOSYN 3.375 GM Q12H per EXTENDED INFUSION IVPB SCH ×4 (07:10→18:47)
[2018-12-16] MEDS ORDERED: D5NS 0.9% 1000 ML BAG* 1,000 ML IV SCH (08:00)
[2018-12-16] MEDS ORDERED: Vancomycin Random Level* NOTE FOLLOW UP ONE (10:00)
[2018-12-16 10:21] LABS: Vancomycin Random 16.6 mcg/mL
[2018-12-16] MEDS: Phenylephrine INJ* 50 MG in NS 0.9% 250 ML* 245 ML IV SCH ×3 (10:24→21:17)
[2018-12-16] MEDS: RiFAXimin* 550 MG TAB PO SCH ×3 (10:26→21:31)
--- NOTE | 2018-12-16 10:55 | PN ---
Progress Note - Progress Note Date of Service: 12/16/18 Note: Progress Note -- Critical Care 24 hour events -admitted last night; s/p IVF bolus and albumin 1 L -hypotensive, started on nuria peripherally -anuric -slightly more lethargic but able to wake and respond appropriately -afebrile overnight -hypoglycemic now Tele: sinus tachy Vitals: Vital Signs Temp 98.9 F 12/16/18 08:07 Pulse 91 12/16/18 10:15 Resp 25 12/16/18 10:15 BP 92/52 12/16/18 10:15 Pulse Ox 96 12/16/18 10:15 Intake & Output 12/15/18 12/16/18 12/16/18 18:59 06:59 18:59 Intake Total 3947 Balance 3947 Weight 134.717 kg 130 kg Intake: IV Fluids 2038 NS (0.9%) 2038 IVPB 618 ABX - VANCOMYCIN 545 ABX - ZOSYN 73 Medicated IV 69 CC - Phenylephrine/ 69 Neosynephrine Albumin 1221 O2/Vent: RA Infusions: nuria 120, d5ns 100 Current Medications: Albuterol (Ventolin 2.5 Mg/3 Ml Neb.Laurie*) 2.5 mg INH Q4H PRN PRN Reason: SOB/WHEEZING Dextrose (Dextrose 50% Vial 50 Ml*) 50 ml IV ONCE PRN PRN Reason: hyperkalemia Last Admin: 12/15/18 17:39 Dose: 50 ml Famotidine (Pepcid Iv*) 20 mg IV SLOW PU DAILY JERRY Hydromorphone HCl (Dilaudid Inj1s*) 1 mg IV SLOW PU Q4H PRN PRN Reason: PAIN - SEVERE Last Admin: 12/16/18 08:58 Dose: 1 mg Hydromorphone HCl (Dilaudid Tab*) 2 mg PO Q4H PRN PRN Reason: PAIN - MODERATE Piperacillin Sod/Tazobactam (Sod 3.375 gm/ Sodium Chloride) 100 mls @ 25 mls/ hr IVPB Q12H JERRY Last Admin: 12/16/18 07:10 Dose: 25 mls/hr Phenylephrine HCl 50 mg/ (Sodium Chloride) 250 mls @ 4.5 mls/hr IV Q5H JERRY; Protocol Last Admin: 12/16/18 10:24 Dose: 48 mls/hr Sodium Bicarbonate 150 meq/ (Dextrose) 1,000 mls @ 100 mls/hr IV Q10H COUNTS INCLUDE 234 BEDS AT THE [facility] Pharmacy Consult (Vancomycin Per Pharmacy*) 1 note FOLLOW UP .VANC PER PHARMACY COUNTS INCLUDE 234 BEDS AT THE [facility] Pharmacy Consult (Zosyn Per Pharmacy*) 1 note FOLLOW UP .ZOSYN PER PHARMACY COUNTS INCLUDE 234 BEDS AT THE [facility] Rifaximin (Xifaxan*) 550 mg PO BID COUNTS INCLUDE 234 BEDS AT THE [facility] Last Admin: 12/16/18 10:26 Dose: Not Given Physical Exam: General: awakens easily, no distress, no diaphoresis Head: normocephalic, atraumatic HEENT: no pallor, no icterus, moist mucous membranes Neck: soft, supple, no jvd CVS: tachy, regular, no murmur Resp: bilateral air entry, no rhales/wheeze/rhonchi, no acc muscle use Abdomen: soft, nontender, nondistended, bowel sounds + Ext: pulses+, warm; diffuse redness in bilateral LE with erythema and gross edema, left lower leg has open wound with some serous/purulent like material and right lower leg has another much small wound Skin: as above Neuro: awake, tired, alert, orientedx3, moving all extremities Labs: Laboratory Results - last 24 hr 12/15/18 12/15/18 12/15/18 14:19 14:19 14:19 WBC 15.0 H RBC 3.78 L Hgb 11.9 L Hct 35 L MCV 93 MCH 31 MCHC 34 RDW 17 H Plt Count 157 MPV 7.5 Neut % (Auto) 86.5 Lymph % (Auto) 5.4 [place] % (Auto) 7.7 Eos % (Auto) 0.2 Baso % (Auto) 0.2 Absolute Neuts (auto) 13.0 H Absolute Lymphs (auto) 0.8 L Absolute Monos (auto) 1.2 H Absolute Eos (auto) 0 Absolute Basos (auto) 0 Absolute Nucleated RBC 0 Nucleated RBC % 0 INR (Anticoag Therapy) APTT Sodium 124 L Potassium 6.5 H* Chloride 94 L Carbon Dioxide 16 L Anion Gap 14 H BUN 112 H Creatinine 7.88 H Est GFR ( Amer) 8.5 Est GFR (Non-Af Amer) 7.1 BUN/Creatinine Ratio 14.2 Glucose 71 POC Glucose (mg/dL) Lactic Acid 3.3 H* Calcium 8.9 Magnesium 2.7 Total Bilirubin 12.30 H* Direct Bilirubin Indirect Bilirubin AST 104 H ALT 61 H Alkaline Phosphatase 135 H Ammonia Total Creatine Kinase 118 Troponin I 0.06 H* C-Reactive Protein 64.99 H B-Natriuretic Peptide Total Protein 6.5 Albumin 2.7 L Globulin 3.8 Albumin/Globulin Ratio 0.7 L Amylase 50 Lipase 76 Random Vancomycin 12/15/18 12/15/18 12/15/18 14:19 14:19 21:30 WBC RBC Hgb Hct MCV MCH MCHC RDW Plt Count MPV Neut % (Auto) Lymph % (Auto) [place] % (Auto) Eos % (Auto) Baso % (Auto) Absolute Neuts (auto) Absolute Lymphs (auto) Absolute Monos (auto) Absolute Eos (auto) Absolute Basos (auto) Absolute Nucleated RBC Nucleated RBC % INR (Anticoag Therapy) 1.37 H APTT 33.4 Sodium 126 L Potassium 6.2 H* Chloride 98 L Carbon Dioxide 13 L* Anion Gap 15 H BUN 113 H Creatinine 7.92 H Est GFR ( Amer) 8.5 Est GFR (Non-Af Amer) 7.0 BUN/Creatinine Ratio 14.3 Glucose 44 L* POC Glucose (mg/dL) Lactic Acid Calcium 8.5 L Magnesium Total Bilirubin Direct Bilirubin Indirect Bilirubin AST ALT Alkaline Phosphatase Ammonia 68 H Total Creatine Kinase 83 Troponin I C-Reactive Protein B-Natriuretic Peptide 110 H Total Protein Albumin Globulin Albumin/Globulin Ratio Amylase Lipase Random Vancomycin 12/15/18 12/15/18 12/16/18 21:30 23:19 01:16 WBC RBC Hgb Hct MCV MCH MCHC RDW Plt Count MPV Neut % (Auto) Lymph % (Auto) [place] % (Auto) Eos % (Auto) Baso % (Auto) Absolute Neuts (auto) Absolute Lymphs (auto) Absolute Monos (auto) Absolute Eos (auto) Absolute Basos (auto) Absolute Nucleated RBC Nucleated RBC % INR (Anticoag Therapy) APTT Sodium Potassium Chloride Carbon Dioxide Anion Gap BUN Creatinine Est GFR ( Amer) Est GFR (Non-Af Amer) BUN/Creatinine Ratio Glucose POC Glucose (mg/dL) 79 73 Lactic Acid 3.3 H* Calcium Magnesium Total Bilirubin Direct Bilirubin Indirect Bilirubin AST ALT Alkaline Phosphatase Ammonia Total Creatine Kinase Troponin I C-Reactive Protein B-Natriuretic Peptide Total Protein Albumin Globulin Albumin/Globulin Ratio Amylase Lipase Random Vancomycin 12/16/18 12/16/18 12/16/18 05:04 05:04 05:04 WBC 14.6 H RBC 2.92 L Hgb 9.4 L Hct 27 L MCV 93 MCH 32 H MCHC 35 RDW 17 H Plt Count 84 L D MPV 7.9 Neut % (Auto) Lymph % (Auto) [place] % (Auto) Eos % (Auto) Baso % (Auto) Absolute Neuts (auto) Absolute Lymphs (auto) Absolute Monos (auto) Absolute Eos (auto) Absolute Basos (auto) Absolute Nucleated RBC Nucleated RBC % INR (Anticoag Therapy) APTT Sodium 126 L Potassium 6.3 H* Chloride 100 L Carbon Dioxide 13 L* Anion Gap 13 H BUN 116 H Creatinine 7.87 H Est GFR ( Amer) 8.6 Est GFR (Non-Af Amer) 7.1 BUN/Creatinine Ratio 14.7 Glucose 60 L POC Glucose (mg/dL) Lactic Acid Calcium 8.3 L Magnesium Total Bilirubin 10.50 H D Direct Bilirubin 5.70 H Indirect Bilirubin 4.8 H AST 78 H ALT 42 Alkaline Phosphatase 108 H Ammonia 123 H Total Creatine Kinase Troponin I C-Reactive Protein B-Natriuretic Peptide Total Protein 5.5 L Albumin 2.7 L Globulin 2.8 Albumin/Globulin Ratio 1.0 Amylase Lipase Random Vancomycin 16.6 12/16/18 12/16/18 08:40 10:21 WBC RBC Hgb Hct MCV MCH MCHC RDW Plt Count MPV Neut % (Auto) Lymph % (Auto) [place] % (Auto) Eos % (Auto) Baso % (Auto) Absolute Neuts (auto) Absolute Lymphs (auto) Absolute Monos (auto) Absolute Eos (auto) Absolute Basos (auto) Absolute Nucleated RBC Nucleated RBC % INR (Anticoag Therapy) APTT Sodium Potassium Chloride Carbon Dioxide Anion Gap BUN Creatinine Est GFR ( Amer) Est GFR (Non-Af Amer) BUN/Creatinine Ratio Glucose POC Glucose (mg/dL) 79 71 Lactic Acid Calcium Magnesium Total Bilirubin Direct Bilirubin Indirect Bilirubin AST ALT Alkaline Phosphatase Ammonia Total Creatine Kinase Troponin I C-Reactive Protein B-Natriuretic Peptide Total Protein Albumin Globulin Albumin/Globulin Ratio Amylase Lipase Random Vancomycin Imaging: cxr 12/15 - no acute infiltrate Assessment: 58y M w/pmhx of HTN, Stage 4 Cirrhosis 2/2 to hemochromatosis; Recent admission to [facility], found to have cirrhosis, transferred to [place] for Liver transplant workup but left AMA during workup. He left 11/09. Since then family has stated he was doing well up until maybe 5-7 days back. ~2 weeks back he injured his left leg, which was already swollen, and had an open wound. Since then the wound and left have gotten worse, left has started to turn red, increasing drainage from serous to more pus like. The right leg also has an injury and that may have also been on purpose. The right leg turned red with some mild drainage compared to left leg. They report confusion x3 days. Mild SOB on exertion x3 days. LE swelling has been increased for many days. No diarrhea/n/v. Chills+ for 3 days. Patient states he continued taking Lasix and lactulose/rifaxamin. He reports decreased urine output. In ER, temp 97, BP 90- 100s, HR 90s, on RA sat 99%. -Severe sepsis -Bilateral LE Cellulitus -MELISSA -Hyperkalemia -Metabolic Acidosis -acute decompensated Cirrhosis -delirium -hypoglycemia Plan: Neuro- awake, mentating ok, a little sluggish but able to answer questions. delirium prec. asp prec.pain control PRN CVS- BP 90s, now on nuria for BP support. Will need Central line for access. Has not responded to IVF boluses/albumin boluses. WBC 14, afebrile. Maintain Map> 65. Definitely has peripheral signs of fluid overload. Anuric. IV abx. Resp- RA, no distress. CXR without infiltrate 2/5. Bronchodilators PRN. Asp prec ID- temp 97, wbc 14. Bilateral LE erythema, open wounds, drainage+, edema+. CXR withotu focal infiltrate. Blood cx sent. Send urinalysis. Empiric IV abx for cellulitus to cover gram+/anaerobes, IV zosyn (days#2) and Vanco 1gm x1 given, check random today. GI- NPO, trial of clear liquid diet if awake/alert. -history of cirrhosis, noted low albumin and elevated Tbili (which is lower than prior), some dilution today. -possible hepato renal but would hydrate now, more septic picture. -cont rifaxamin for now; hold lactulose till BP stable and sepsis resolved/MELISSA resolved. -ammonia elevated now; start lactulose -priscilla discuss with patient about need for possible transfer to liver transplant center if he is for a workup again, given MELISSA and possible need for HD. Renal- Anuric MELISSA, Cr 7, hyperkalemia, metabolic acidosis 2/2 to MELISSA and soem sepsis vs further liver decompensation -anuric despite IVF boluses and albumin infusions -now on pressors -re-insert reid, cehck urine lytes -renal consult; possible need for HD -start NaBicarb 150 + d5w @ 100cc/hr -hold insulin for hyperkal 2/2 to hypoglycemia; give calcium gluconate 2gm IVPB Heme- anemia, hg 10->9, no bleeding noted. Platelets drop to 80s noted, suspect sequestration vs sepsis. INR 1.3. Maintain hg>7. DVT proph with chem proph. Endo- fingerstick prn. Musculsk- pressure ulcer prophylaxis. Bedrest. Wounds- wound care to Lower ext for wounds. Nutrition- reg diet DVT prophylaxis: - GI prophylaxis: h2b Central Line: no Arterial Line: no Reid Cathetor: yes, being placed Disposition: Patient requires Critical Care/ICU for severe sepsis, MELISSA, hyperkalemia, cirrhosis, delirium Patient Clinical Status: critical Code Status: full code Total Critical Care time is 40 minutes, excluding procedures/teaching Ishan Monge MD Program Director [place] (Electronically Signed)
[2018-12-16] MEDS ORDERED: D5W 1000 ML BAG* 850 ML with Sodium Bicarbonate 8.4% IV* 150 MEQ IV SCH ×2 (11:00)
[2018-12-16] MEDS: Sodium Bicarbonate 8.4% IV* 150 MEQ in D5W 1000 ML BAG* 850 ML IV SCH ×2 (11:00→21:10)
[2018-12-16] MEDS ORDERED: Calcium Gluconate INJ* 2 GM in NS 0.9% 100 ML* 100 ML IV ONE (11:30)
[2018-12-16 12:16] LABS: Urine Appearance Cloudy; Urine Bacteria Absent (Absent); Urine Bilirubin Negative (Negative); Urine Blood 2+ (Negative); Urine Color Amber; Urine Glucose Negative (Negative); Urine Ketones Negative (Negative); Urine Nitrite Negative (Negative); Urine Protein Negative (Negative); Urine Red Blood Cell Trace(0-2/hpf) (Absent); Urine Specific Gravity 1.011 (1.010-1.030); Urine Squamous Epithelial Cell Present (Absent); Urine Urobilinogen Positive (Negative); Urine White Blood Cell Trace(0-5/hpf) (Absent)
[2018-12-16] MEDS ORDERED: [UNRECOGNIZED DRUG - OTHER] IV ONE (13:00)
--- NOTE | 2018-12-16 15:49 | PN ---
Progress Note - Progress Note Date of Service: 12/16/18 Note: Central Line Procedure Note Indication: venous access Diagnosis: MELISSA, Septic Shock, Cirrhosis Performed by: Ishan Monge MD Consent: Informed ; placed in bedside chart Risks of procedure were explained if possible, all risks of pain/discomfort, bleeding, infection, PTX, Hemotx, need for chest tube, air/wire embolism, vessel injury, , and failed procedure disclosed and understanding verbalized [place] Protocol: Time-out was performed and the correct patient and site were verified - Prior labs/history was reviewed prior to procedure - Full sterile precautions with chlorhexidine/full drapes/gowns/gloves utilized - Right Internal Jugular Vein was visualized with ultrasound - Vessel accessed under ultrasound guidance with return of nonpulsatile blood. A guidewire was passed into vessel and confirmed in vessel with ultrasound. 1 attempt was made to access vessel. Vessel was dilated and cathetor was passed over wire into vessel. All ports demonstrated good blood return and flushed. Catheter was sutured to site and dressing applied. Adequate hemostasis was achieved EBL <5 cc No immediate complications noted, patient tolerated procedure well. Post Procedure CXR: Right IJ line in place, no PTX Ishan Monge MD Registered Nurse Maternity (Electronically Signed)
--- NOTE | 2018-12-16 15:50 | PN ---
Progress Note - Progress Note Date of Service: 12/16/18 Note: Central Line Procedure Note ----- (Temporary Hemodialysis Cathetor Insertion) Indication: Hemodialysis initiation Diagnosis: MELISSA, septic shock, cirrhosis Performed by: Ishan Monge MD Consent: Informed; placed in bedside chart Risks of procedure were explained if possible, all risks of pain/discomfort, bleeding, infection, PTX, Hemotx, need for chest tube, air/wire embolism, vessel injury, , and failed procedure disclosed and understanding verbalized [place] Protocol: Time-out was performed and the correct patient and site were verified - Prior labs/history was reviewed prior to procedure - Full sterile precautions with chlorhexidine/full drapes/gowns/gloves utilized - Right Internal Jugular veing was visualized with ultrasound - Vessel accessed under ultrasound guidance with return of nonpulsatile blood. A guidewire was passed into vessel and confirmed in vessel with ultrasound. 1 attempt was made to access vessel. Vessel was dilated and cathetor was passed over wire into vessel. All ports demonstrated good blood return and flushed. Catheter was sutured to site and dressing applied. Adequate hemostasis was achieved EBL <5 cc No immediate complications noted, patient tolerated procedure well. Post Procedure CXR: Right IJ cathetor in place, no ptx Ishan Monge MD Treasury Director (Electronically Signed)
--- NOTE | 2018-12-16 15:52 | PN ---
Progress Note - Progress Note Date of Service: 12/16/18 Note: discussed with Dr Keller Started to make some urine, but slow Additional boluses given but has slowed again at times Noted to be acidotic, now on bicarb infusion, borderline hyperkalemia, anuric Decision to start HD emergent for UF, no plan for fluid removal at this time. Cont IVF hydration, cont to monitor Urine output HD cathetor placed in RIJ with consent with family. send BMP now. for HD this afternoon Ishan Monge MD Analytical Clerk
[2018-12-16] MEDS ORDERED: Norepinephrine 16MCG/ML IVPRE* 4,000 MCG/250 ML BAG IV SCH (16:30)
[2018-12-16] MEDS: Collagenase 250 MG/GM OINT* 30 GM TOPICAL SCH (16:32)
[2018-12-16] MEDS: Norepinephrine VIAL* 4 MG in NS 0.9% 250 ML* 246 ML IV SCH ×2 (16:32→20:17)
[2018-12-16] MEDS ORDERED: EPOETIN ALFA-EPBX * 10,000 UNIT/ML VIAL IV ONE (18:00)
[2018-12-16] MEDS ORDERED: Heparin DIALYSIS ONLY(*) 1,000 UNITS/ML VIAL DIALYSIS ONE (18:00)
[2018-12-16 18:59] LABS: Urine Appearance Cloudy; Urine Bacteria Absent (Absent); Urine Bilirubin Negative (Negative); Urine Blood 1+ (Negative); Urine Color Amber; Urine Glucose Negative (Negative); Urine Ketones Negative (Negative); Urine Nitrite Negative (Negative); Urine Protein Negative (Negative); Urine Red Blood Cell Trace(0-2/hpf) (Absent); Urine Squamous Epithelial Cell Present (Absent); Urine Urobilinogen Negative (Negative); Urine White Blood Cell Trace(0-5/hpf) (Absent)
[2018-12-16 22:38] LABS: BUN/Creatinine Ratio 12.9 (8-20); EGFR African American 14.6 (>60); EGFR Non-African American 12.1 (>60); Potassium 4.3 mmol/L (3.5-5.0)
[2018-12-16] MEDS: D5NS 0.9% 1000 ML BAG* 1,000 ML IV SCH (23:41)
[2018-12-17] MEDS: Norepinephrine VIAL* 4 MG in NS 0.9% 250 ML* 246 ML IV SCH ×7 (00:33→21:15)
[2018-12-17] MEDS: HYDROmorphone INJ1* 1 MG/ML SYRINGE IV SLOW PU PRN ×3 (00:45→13:01)
[2018-12-17] MEDS: Phenylephrine INJ* 50 MG in NS 0.9% 250 ML* 245 ML IV SCH ×5 (04:32→23:57)
[2018-12-17] MEDS ORDERED: Vancomycin Random Level* NOTE FOLLOW UP PRN (06:00)
[2018-12-17] MEDS: ZOSYN 3.375 GM Q12H per EXTENDED INFUSION IVPB SCH ×4 (06:24→17:59)
[2018-12-17 06:30] LABS: Albumin 2.5 g/dL (3.2-5.2); BUN/Creatinine Ratio 12.7 (8-20); Calcium 7.8 mg/dL (8.6-10.3); EGFR African American 13.5 (>60); EGFR Non-African American 11.2 (>60); Globulin 2.6 g/dL (2-4); Indirect Bilirubin 4.6 mg/dL (0.3-1.0); Potassium 4.7 mmol/L (3.5-5.0); Total Protein 5.1 g/dL (6.4-8.9)
[2018-12-17 06:50] LABS: Hematocrit 29 % (42-52); Hemoglobin 9.7 g/dl (14.0-18.0); Mean Corpuscular HGB Conc 34 g/dl (31-36); Mean Corpuscular Hemoglobin 31 pg (27-31); Mean Corpuscular Volume 93 fL (80-94); Mean Platelet Volume 7.7 fL (7.4-10.4); Platelet Count 79 10^3/ul (150-450); Red Blood Count 3.11 10^6/ul (4.00-5.40); Red Cell Distribution Width 17 % (10.5-15); White Blood Count 12.8 10^3/ul (3.5-10.8)
[2018-12-17] MEDS: Collagenase 250 MG/GM OINT* 30 GM TOPICAL SCH (08:29)
[2018-12-17] MEDS: RiFAXimin* 550 MG TAB PO SCH ×2 (08:29→20:48)
[2018-12-17] MEDS ORDERED: Famotidine IV* 10 MG/ML 2 ML (20 mg) IV SLOW PU SCH (09:00)
[2018-12-17] MEDS: D5NS 0.9% 1000 ML BAG* 1,000 ML IV SCH (09:26)
--- NOTE | 2018-12-17 11:05 | CONS ---
NEPHROLOGY CONSULTATION REPORT: DATE OF CONSULT: 12/17/18 HISTORY OF PRESENT ILLNESS: Mr. 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 He had been recently evaluated at the [facility] for liver transplantation, but left AMA. He apparently had been doing well recently, but he became progressively swollen. He apparently injured his legs and the legs became erythematous. There was some purulent drainage when he presented to the hospital. While I was interviewing him, he would not open his eyes, although he said that he could hear me. He did not respond to questions, so the history was taken from the record. PAST MEDICAL HISTORY: Significant for hypertension. He has had open reduction and internal fixation of his right femur. MEDICATIONS: At home include: 1. Furosemide 20 mg daily. 2. Hydromorphone 2 to 4 mg every 6 hours p.r.n. for pain. 3. Lactulose 30 cc b.i.d. 4. Metoprolol XL 12.5 mg daily. 5. Ondansetron 8 mg q.8 hours p.r.n. for nausea. 6. Rifaximin mg every 8 hours. 7. Spironolactone 50 mg daily. At the time I saw him, he was receiving pressors to support his blood pressure. ALLERGIES: He is allergic to multiple medications including BACTROBAN and POLYMYXIN B. FAMILY HISTORY: His family has coronary artery disease. SOCIAL HISTORY: He has an old alcohol history, but quit many years ago. PHYSICAL EXAM: His blood pressure was 93/51 with a pulse of 91, respirations were 18. There was some scleral icterus. His extraocular muscles were intact. His mucous membranes appeared moist. He was lying flat in bed and there was jugular venous distention, but he did not want us to elevate the bed. His chest was actually surprisingly clear. The heart revealed a regular rhythm without murmurs. I could not feel a liver margin. The abdomen was soft and nontender. Bowel sounds were positive. There was 2+ edema and erythema up to about his knees. Interestingly enough, there was essentially no urine in his Casanova bag, but a little bit of urine in his tube. I went to drain that urine out and immediately, he produced another 250 cc of urine in about the next 10 minutes. LABORATORY DATA: A review of his laboratory studies reveals a white count of 12.8, hemoglobin of 9.7. Potassium 4.3, sodium 132, chloride 97, total CO2 of 25, glucose 108. Of significance, he has been hypoglycemic down to 44. BUN 116 , creatinine 7.87, albumin 2.7. IMPRESSION: 1. Stage 4 cirrhosis secondary to hemochromatosis. 2. Acute renal failure, probably on the basis of sepsis. PLAN/RECOMMENDATIONS: After discussion with Dr. Monge, we decided it would be appropriate to proceed on with hemodialysis and perhaps we will get some clearing of his mentation. I did go through the informed consent procedure with him and he was willing to proceed. Dr. Monge and I were both a little skeptical that he actually could provide consent; however, at that point, there were no family members around for us to go through that process with them. Dr. Monge was going to be talking with them when they re-presented. [id number]/[facility] #: [id number] MTDD
[2018-12-17] MEDS ORDERED: D5NS 0.9% 1000 ML BAG* 1,000 ML IV SCH ×2 (11:20→15:51)
[2018-12-17] MEDS ORDERED: Albumin Human 5%* 250 GM/250 ML BTL IV ONE ×2 (11:20→11:22)
[2018-12-17] MEDS ORDERED: Albumin Human 5%* 12.5 GM/250 ML BTL IV ONE (11:21)
[2018-12-17] MEDS ORDERED: Vancomycin(*) 1,000 MG in NS 0.9% 250 ML* 250 ML IVPB ONE (11:30)
--- NOTE | 2018-12-17 11:36 | PN ---
Progress Note - Progress Note Date of Service: 12/17/18 Note: Progress Note -- Critical Care 24 hour events -yesterday had HD cath placed for emergent HD for hyperkal/acidosis/suspect uremia -remains on pressors overnight, on levophed and nuria, not much change -mental status slightly better, more repsonsive and awake, back to baseline status? -still making urine -afebrile Tele: NSR Vitals: Vital Signs Temp 97.9 F 12/17/18 10:15 Pulse 92 12/17/18 10:15 Resp 19 12/17/18 10:15 BP 109/65 12/17/18 10:15 Pulse Ox 96 12/17/18 10:15 Intake & Output 12/16/18 12/17/18 12/17/18 18:59 06:59 18:59 Intake Total 1960 2655 Output Total 705 265 63 Balance 1255 2390 -63 Weight 133.3 kg Intake: IV Fluids 552 1135 D5NS 656 Sodim Bicarb 552 479 IVPB 920 65 ABX - ZOSYN 100 65 Calcium Gluconate 120 D5NS 700 Medicated IV 488 1295 CC - Phenylephrine/ 488 497 Neosynephrine levophed 798 Oral 60 Casanova Irrigate Amount 100 Output: Casanova 705 265 63 O2/Vent: RA Infusions: nuria 100, levo 16, d5ns 100 Current Medications: Albuterol (Ventolin 2.5 Mg/3 Ml Neb.Laurie*) 2.5 mg INH Q4H PRN PRN Reason: SOB/WHEEZING Collagenase (Santyl 250 Mg/Gm Oint*) 1 applic TOPICAL DAILY JERRY Last Admin: 12/17/18 08:29 Dose: 1 applic Dextrose (Dextrose 50% Vial 50 Ml*) 50 ml IV ONCE PRN PRN Reason: hyperkalemia Last Admin: 12/15/18 17:39 Dose: 50 ml Famotidine (Pepcid Iv*) 20 mg IV SLOW PU DAILY JERRY Last Admin: 12/17/18 08:29 Dose: 20 mg Hydromorphone HCl (Dilaudid Inj1s*) 1 mg IV SLOW PU Q4H PRN PRN Reason: PAIN - SEVERE Last Admin: 12/17/18 04:37 Dose: 1 mg Hydromorphone HCl (Dilaudid Tab*) 2 mg PO Q4H PRN PRN Reason: PAIN - MODERATE Piperacillin Sod/Tazobactam (Sod 3.375 gm/ Sodium Chloride) 100 mls @ 25 mls/ hr IVPB Q12H [facility] Last Admin: 12/17/18 06:24 Dose: 25 mls/hr Phenylephrine HCl 50 mg/ (Sodium Chloride) 250 mls @ 4.5 mls/hr IV Q5H [facility]; Protocol Last Admin: 12/17/18 08:12 Dose: Not Given Norepinephrine Bitartrate 4 mg (/ Sodium Chloride) 250 mls @ 37.5 mls/hr IV Q6H [facility]; Protocol Last Admin: 12/17/18 08:53 Dose: 56.3 mls/hr Dextrose/Sodium Chloride (D5ns 0.9% 1000 Ml Bag*) 1,000 mls @ 100 mls/hr IV PER RATE [facility] Last Admin: 12/17/18 09:26 Dose: 100 mls/hr Vancomycin HCl 1,000 mg/ (Sodium Chloride) 250 mls @ 166.667 mls/hr IVPB ONCE ONE Stop: 12/17/18 12:59 Lactulose (Lactulose*) 30 ml PO TID [facility] Last Admin: 12/17/18 08:29 Dose: 30 ml Pharmacy Consult (Vancomycin Per Pharmacy*) 1 note FOLLOW UP .VANC PER PHARMACY [facility] Pharmacy Consult (Zosyn Per Pharmacy*) 1 note FOLLOW UP .ZOSYN PER PHARMACY [facility] Pharmacy Consult (Vancomycin Random Level*) 1 note FOLLOW UP ONCE ONE Stop: 12/18/18 06:01 Rifaximin (Xifaxan*) 550 mg PO BID [facility] Last Admin: 12/17/18 08:29 Dose: 550 mg Physical Exam: General: awakens easily, no distress, no diaphoresis Head: normocephalic, atraumatic HEENT: no pallor, no icterus, moist mucous membranes Neck: soft, supple, no jvd CVS: tachy, regular, no murmur Resp: bilateral air entry, no rhales/wheeze/rhonchi, no acc muscle use Abdomen: soft, nontender, nondistended, bowel sounds + Ext: pulses+, warm; diffuse redness in bilateral LE with erythema and gross edema, left lower leg has open wound with some serous/purulent like material and right lower leg has another much small wound Skin: as above Neuro: awakens, orientedx3, moving all extremities Labs: Laboratory Results - last 24 hr 12/15/18 12/16/18 12/16/18 14:19 10:49 12:43 WBC RBC Hgb Hct MCV MCH MCHC RDW Plt Count MPV Sodium 124 L Potassium 6.5 H* Chloride 94 L Carbon Dioxide 16 L Anion Gap 14 H BUN 112 H Creatinine 7.88 H Est GFR ( Amer) 8.5 Est GFR (Non-Af Amer) 7.1 BUN/Creatinine Ratio 14.2 Glucose 71 POC Glucose (mg/dL) 137 H Lactic Acid Calcium 8.9 Magnesium 2.7 Total Bilirubin 12.30 H* Direct Bilirubin Indirect Bilirubin AST 104 H ALT 61 H Alkaline Phosphatase 135 H Ammonia Total Creatine Kinase 118 Troponin I 0.06 H* C-Reactive Protein 64.99 H B-Natriuretic Peptide Total Protein 6.5 Albumin 2.7 L Globulin 3.8 Albumin/Globulin Ratio 0.7 L Amylase 50 Lipase 76 Urine Color Margarette Urine Appearance Cloudy Urine pH 5.0 Ur Specific [place] 1.011 Urine Protein Negative Urine Ketones Negative Urine Blood 2+ A Urine Nitrate Negative Urine Bilirubin Negative Urine Urobilinogen Positive A Ur Leukocyte Esterase Negative Urine WBC (Auto) Trace(0-5/hpf) Urine RBC (Auto) Trace(0-2/hpf) Ur Squamous Epith Cells Present A Urine Bacteria Absent Hyaline Casts Urine Glucose Negative Random Vancomycin 12/16/18 12/16/18 12/16/18 14:07 15:23 15:23 WBC RBC Hgb Hct MCV MCH MCHC RDW Plt Count MPV Sodium Potassium Chloride Carbon Dioxide Anion Gap BUN Creatinine Est GFR ( Amer) Est GFR (Non-Af Amer) BUN/Creatinine Ratio Glucose POC Glucose (mg/dL) Lactic Acid 1.7 Calcium Magnesium Total Bilirubin Direct Bilirubin Indirect Bilirubin AST ALT Alkaline Phosphatase Ammonia Total Creatine Kinase Troponin I C-Reactive Protein B-Natriuretic Peptide 787 H Total Protein Albumin Globulin Albumin/Globulin Ratio Amylase Lipase Urine Color Margarette Urine Appearance Cloudy Urine pH 5.0 Ur Specific [place] 1.010 Urine Protein Negative Urine Ketones Negative Urine Blood 1+ A Urine Nitrate Negative Urine Bilirubin Negative Urine Urobilinogen Negative Ur Leukocyte Esterase Negative Urine WBC (Auto) Trace(0-5/hpf) Urine RBC (Auto) Trace(0-2/hpf) Ur Squamous Epith Cells Present A Urine Bacteria Absent Hyaline Casts Present A Urine Glucose Negative Random Vancomycin 12/16/18 12/16/18 12/16/18 17:52 20:42 22:05 WBC RBC Hgb Hct MCV MCH MCHC RDW Plt Count MPV Sodium 132 L Potassium 4.3 D Chloride 97 L Carbon Dioxide 25 Anion Gap 10 BUN 64 H Creatinine 4.95 H Est GFR ( Amer) 14.6 Est GFR (Non-Af Amer) 12.1 BUN/Creatinine Ratio 12.9 Glucose 108 H POC Glucose (mg/dL) 104 H 98 Lactic Acid Calcium 8.0 L Magnesium Total Bilirubin Direct Bilirubin Indirect Bilirubin AST ALT Alkaline Phosphatase Ammonia Total Creatine Kinase Troponin I C-Reactive Protein B-Natriuretic Peptide Total Protein Albumin Globulin Albumin/Globulin Ratio Amylase Lipase Urine Color Urine Appearance Urine pH Ur Specific [place] Urine Protein Urine Ketones Urine Blood Urine Nitrate Urine Bilirubin Urine Urobilinogen Ur Leukocyte Esterase Urine WBC (Auto) Urine RBC (Auto) Ur Squamous Epith Cells Urine Bacteria Hyaline Casts Urine Glucose Random Vancomycin 12/17/18 12/17/18 12/17/18 00:40 04:05 05:50 WBC RBC Hgb Hct MCV MCH MCHC RDW Plt Count MPV Sodium 132 L Potassium 4.7 Chloride 99 L Carbon Dioxide 23 Anion Gap 10 BUN 67 H Creatinine 5.29 H Est GFR ( Amer) 13.5 Est GFR (Non-Af Amer) 11.2 BUN/Creatinine Ratio 12.7 Glucose 138 H POC Glucose (mg/dL) 118 H 148 H Lactic Acid Calcium 7.8 L Magnesium Total Bilirubin 10.00 H Direct Bilirubin 5.40 H Indirect Bilirubin 4.6 H AST 82 H ALT 42 Alkaline Phosphatase 98 Ammonia Total Creatine Kinase Troponin I C-Reactive Protein B-Natriuretic Peptide Total Protein 5.1 L Albumin 2.5 L Globulin 2.6 Albumin/Globulin Ratio 1.0 Amylase Lipase Urine Color Urine Appearance Urine pH Ur Specific [place] Urine Protein Urine Ketones Urine Blood Urine Nitrate Urine Bilirubin Urine Urobilinogen Ur Leukocyte Esterase Urine WBC (Auto) Urine RBC (Auto) Ur Squamous Epith Cells Urine Bacteria Hyaline Casts Urine Glucose Random Vancomycin 12/17/18 12/17/18 12/17/18 05:50 05:50 06:15 WBC 12.8 H RBC 3.11 L Hgb 9.7 L Hct 29 L MCV 93 MCH 31 MCHC 34 RDW 17 H Plt Count 79 L MPV 7.7 Sodium Potassium Chloride Carbon Dioxide Anion Gap BUN Creatinine Est GFR ( Amer) Est GFR (Non-Af Amer) BUN/Creatinine Ratio Glucose POC Glucose (mg/dL) Lactic Acid 2.7 H* Calcium Magnesium Total Bilirubin Direct Bilirubin Indirect Bilirubin AST ALT Alkaline Phosphatase Ammonia Total Creatine Kinase Troponin I C-Reactive Protein B-Natriuretic Peptide Total Protein Albumin Globulin Albumin/Globulin Ratio Amylase Lipase Urine Color Urine Appearance Urine pH Ur Specific [place] Urine Protein Urine Ketones Urine Blood Urine Nitrate Urine Bilirubin Urine Urobilinogen Ur Leukocyte Esterase Urine WBC (Auto) Urine RBC (Auto) Ur Squamous Epith Cells Urine Bacteria Hyaline Casts Urine Glucose Random Vancomycin 10.6 12/17/18 12/17/18 08:33 09:34 WBC RBC Hgb Hct MCV MCH MCHC RDW Plt Count MPV Sodium Potassium Chloride Carbon Dioxide Anion Gap BUN Creatinine Est GFR ( Amer) Est GFR (Non-Af Amer) BUN/Creatinine Ratio Glucose POC Glucose (mg/dL) 170 H Lactic Acid Calcium Magnesium Total Bilirubin Direct Bilirubin Indirect Bilirubin AST ALT Alkaline Phosphatase Ammonia 65 H Total Creatine Kinase Troponin I C-Reactive Protein B-Natriuretic Peptide Total Protein Albumin Globulin Albumin/Globulin Ratio Amylase Lipase Urine Color Urine Appearance Urine pH Ur Specific [place] Urine Protein Urine Ketones Urine Blood Urine Nitrate Urine Bilirubin Urine Urobilinogen Ur Leukocyte Esterase Urine WBC (Auto) Urine RBC (Auto) Ur Squamous Epith Cells Urine Bacteria Hyaline Casts Urine Glucose Random Vancomycin Imaging: cxr 12/15 - no acute infiltrate Assessment: 58y M w/pmhx of HTN, Stage 4 Cirrhosis 2/2 to hemochromatosis; Recent admission to [facility], found to have cirrhosis, transferred to [place] for Liver transplant workup but left AMA during workup. He left 11/09. Since then family has stated he was doing well up until maybe 5-7 days back. ~2 weeks back he injured his left leg, which was already swollen, and had an open wound. Since then the wound and left have gotten worse, left has started to turn red, increasing drainage from serous to more pus like. The right leg also has an injury and that may have also been on purpose. The right leg turned red with some mild drainage compared to left leg. They report confusion x3 days. Mild SOB on exertion x3 days. LE swelling has been increased for many days. No diarrhea/n/v. Chills+ for 3 days. Patient states he continued taking Lasix and lactulose/rifaxamin. He reports decreased urine output. In ER, temp 97, BP 90- 100s, HR 90s, on RA sat 99%. -Severe sepsis with shock -Bilateral LE Cellulitus -MELISSA, started HD 2/6 -Hyperkalemia -Metabolic Acidosis -acute decompensated Cirrhosis -delirium -hypoglycemia -thrombocytopenia Plan: Neuro- better mentation this morning, not as lethargic. Suspicion that there may have been a component of hepatic encephalopathy adding to this, as well as some hepatic encephalopathy. cont lactulose/rifaxamin PO. AMmonia better this morning. delirium prec. asp prec.pain control PRN CVS- BP 90s, on levo and nuria. start midodrine 5mg q8h. CVP 4-5. Cont D5NS 75cc/ hr. Albumin 5% 250cc x2 bolus to be ordered. Making urine, oliguric. Maintain Map>65. IV abx. Resp- RA, no distress. CXR without infiltrate 2/5. Bronchodilators PRN. Asp prec ID- temp 97, wbc 13. Bilateral LE erythema, open wounds, drainage+, edema+. CXR withotu focal infiltrate. Blood cx neg so far. Urinalysis neg so far. Empiric IV abx for cellulitus to cover gram+/anaerobes, IV zosyn (days#3) and Vanco (day #3) 1gm x1 today again, random vanco 10 GI- -better mental status; can trial Renal diet, mechanical soft. -history of cirrhosis, noted low albumin and elevated Tbili (which is lower than prior) -possible hepatorenal; albumin + pressors + midodrine -cont rifaxamin/lactulose; ammonia better; mental status better -he left AM from [place] during Liver transpl w/u; unclear if he would continue that again. By tomorrow will discuss if he wishes to transfer for continued workup, now that he also is in MELISSA/HD Renal- -Oliguric MELISSA, now on new HD, UF done yesterday, no fluid removal. Making slow urine. K okay, no acidosis. -cont D5NS, dec to 75cc/hr; albumin 250cc x2 boluses today -CVP 4-5, but doesnt appear very dry now; will cont hydration -no need for HD today, discussed with Renal. Plan for UF tomorrow if need be Heme- anemia, hg 9-10, no bleeding noted. Platelets drop to 79 , suspect sequestration vs sepsis. Maintain hg>7. Hold DVT chem proph for thrombocytopenia. Endo- fingerstick q1h; hypoglycemia better; dec D5NS. PO diet start Musculsk- pressure ulcer prophylaxis. Bedrest. Wounds- wound care to Lower ext for wounds. Nutrition- renal diet DVT prophylaxis: no SCDs due to LE wounds; no chemical proph due to low plt GI prophylaxis: h2b Central Line: Right IJ TLC and HD 2/6 Arterial Line: no Casanova Cathetor: yes Disposition: Patient requires Critical Care/ICU for severe sepsis, MELISSA, hyperkalemia, cirrhosis, delirium Patient Clinical Status: critical Code Status: full code Total Critical Care time is 35 minutes, excluding procedures/teaching Ishan Monge MD Variety [employer] Operator (Electronically Signed)
[2018-12-17 13:19] LABS: Hepatitis C Antibody Nonreactive (Nonreactive)
[2018-12-17] MEDS: CMCS:Midodrine (NF) 5 MG TAB PO SCH ×2 (14:27→20:48)
[2018-12-17] MEDS ORDERED: NS 0.9% 1000 ML** 1,000 ML IV SCH (16:00)
[2018-12-17] MEDS ORDERED: Albuterol 2.5 MG/3 ML NEB.SOL* (0.083%) INH SCH (19:00)
[2018-12-18] MEDS: Phenylephrine INJ* 50 MG in NS 0.9% 250 ML* 245 ML IV SCH ×3 (04:06→13:45)
[2018-12-18] MEDS: CMCS:Midodrine (NF) 5 MG TAB PO SCH ×3 (04:06→21:54)
[2018-12-18] MEDS: HYDROmorphone TAB* 2 MG PO PRN (05:00)
[2018-12-18] MEDS: Norepinephrine VIAL* 4 MG in NS 0.9% 250 ML* 246 ML IV SCH ×2 (05:38→14:12)
[2018-12-18] MEDS ORDERED: Vancomycin Random Level* NOTE FOLLOW UP ONE (06:00)
[2018-12-18] MEDS: ZOSYN 3.375 GM Q12H per EXTENDED INFUSION IVPB SCH ×4 (06:05→20:10)
[2018-12-18 06:29] LABS: INR 1.98 (0.77-1.02)
[2018-12-18 06:43] LABS: Albumin 2.3 g/dL (3.2-5.2); Albumin/Globulin Ratio 0.9 (1-3); BUN/Creatinine Ratio 13.1 (8-20); Calcium 7.9 mg/dL (8.6-10.3); EGFR African American 12.6 (>60); EGFR Non-African American 10.4 (>60); Globulin 2.6 g/dL (2-4); Potassium 4.3 mmol/L (3.5-5.0); Total Bilirubin 8.6 mg/dL (0.2-1.0); Total Protein 4.9 g/dL (6.4-8.9)
[2018-12-18 06:58] LABS: Hematocrit 27 % (42-52); Hemoglobin 9.5 g/dl (14.0-18.0); Mean Corpuscular HGB Conc 35 g/dl (31-36); Mean Corpuscular Hemoglobin 32 pg (27-31); Mean Corpuscular Volume 93 fL (80-94); Mean Platelet Volume 7.6 fL (7.4-10.4); Platelet Count 50 10^3/ul (150-450); Red Blood Count 2.96 10^6/ul (4.00-5.40); Red Cell Distribution Width 17 % (10.5-15)
[2018-12-18 07:01] LABS: Vancomycin Random 15.4 mcg/mL
[2018-12-18] MEDS: Collagenase 250 MG/GM OINT* 30 GM TOPICAL SCH (08:36)
[2018-12-18] MEDS: Famotidine TAB* 20 MG PO SCH (08:37)
[2018-12-18] MEDS: RiFAXimin* 550 MG TAB PO SCH ×2 (08:37→21:54)
[2018-12-18 09:29] LABS: Fibrinogen 150.6 mg/dL (110.8-404.3)
[2018-12-18] MEDS ORDERED: Vancomycin(*) 1,000 MG in NS 0.9% 250 ML* 250 ML IVPB ONE (10:00)
[2018-12-18] MEDS ORDERED: D5NS 0.9% 1000 ML BAG* 1,000 ML IV SCH (15:12)
--- NOTE | 2018-12-18 15:15 | PN ---
Progress Note - Progress Note Date of Service: 12/18/18 Note: Progress Note -- Critical Care 24 hour events -no events overnight -weaning down pressors -afebrile, remains oliguric -more awake/alert Tele: NSR Vitals: Vital Signs Temp 97.5 F 12/18/18 15:01 Pulse 95 12/18/18 15:01 Resp 16 12/18/18 15:01 BP 116/79 12/18/18 15:00 Pulse Ox 96 12/18/18 15:01 Intake & Output 12/17/18 12/18/18 12/18/18 18:59 06:59 18:59 Intake Total 2536 3108.6 1614 Output Total 183 411 223 Balance 2353 2697.6 1391 Weight 135 kg Intake: IV Fluids 757 962 608 D5NS 757 604 404 NS (0.9%) 358 204 IVPB 601 350 ABX - VANCOMYCIN 258 250 ABX - ZOSYN 100 100 Albumin 243 Medicated IV 738 746.6 216 CC - Phenylephrine/ 225 46.6 Neosynephrine levophed 513 700 216 Oral 440 400 440 Albumin 1000 Output: Casanova 183 411 223 Other: Date of Last Bowel 12/17/18 12/17/18 12/18/18 Movement # Bowel Movements 2 1 1 Estimated Stool Amount Large Medium Medium O2/Vent: RA Infusions: nuria off, levo 2, d5ns 50, ns 25 Current Medications: Albuterol (Ventolin 2.5 Mg/3 Ml Neb.Laurie*) 2.5 mg INH Q4H PRN PRN Reason: SOB/WHEEZING Collagenase (Santyl 250 Mg/Gm Oint*) 1 applic TOPICAL DAILY [facility] Last Admin: 12/18/18 08:36 Dose: 1 applic Dextrose (Dextrose 50% Vial 50 Ml*) 50 ml IV ONCE PRN PRN Reason: hyperkalemia Last Admin: 12/15/18 17:39 Dose: 50 ml Famotidine (Pepcid Tab*) 20 mg PO DAILY [facility] Last Admin: 12/18/18 08:37 Dose: 20 mg Hydromorphone HCl (Dilaudid Inj1s*) 1 mg IV SLOW PU Q4H PRN PRN Reason: PAIN - SEVERE Last Admin: 12/17/18 13:01 Dose: 1 mg Hydromorphone HCl (Dilaudid Tab*) 2 mg PO Q4H PRN PRN Reason: PAIN - MODERATE Last Admin: 12/18/18 05:00 Dose: 2 mg Piperacillin Sod/Tazobactam (Sod 3.375 gm/ Sodium Chloride) 100 mls @ 25 mls/ hr IVPB Q12H [facility] Last Admin: 12/18/18 06:05 Dose: 25 mls/hr Phenylephrine HCl 50 mg/ (Sodium Chloride) 250 mls @ 4.5 mls/hr IV Q5H [facility]; Protocol Last Admin: 12/18/18 13:45 Dose: Not Given Sodium Chloride (Ns 0.9% 1000 Ml) 1,000 mls @ 25 mls/hr IV PER RATE [facility] Last Admin: 12/17/18 16:03 Dose: 25 mls/hr Dextrose/Sodium Chloride (D5ns 0.9% 1000 Ml Bag*) 1,000 mls @ 50 mls/hr IV PER RATE [facility] Last Admin: 12/18/18 04:57 Dose: 50 mls/hr Norepinephrine Bitartrate (Levophed 16 Mcg/Ml Premix Bag*) 4,000 mcg in 250 mls @ 37.5 mls/hr IV Q6H [facility]; Protocol Lactulose (Lactulose*) 30 ml PO TID [facility] Last Admin: 12/18/18 14:12 Dose: 30 ml Midodrine (Midodrine (Nf)) 5 mg PO Q8H [facility]; Protocol Last Admin: 12/18/18 11:22 Dose: 5 mg Pharmacy Consult (Vancomycin Per Pharmacy*) 1 note FOLLOW UP .VANC PER PHARMACY [facility] Pharmacy Consult (Zosyn Per Pharmacy*) 1 note FOLLOW UP .ZOSYN PER PHARMACY [facility] Pharmacy Consult (Vancomycin Random Level*) 1 note FOLLOW UP ONCE ONE Stop: 12/19/18 06:01 Rifaximin (Xifaxan*) 550 mg PO BID [facility] Last Admin: 12/18/18 08:37 Dose: 550 mg Physical Exam: General: awake, no distress, no diaphoresis Head: normocephalic, atraumatic HEENT: no pallor, no icterus, moist mucous membranes Neck: soft, supple, no jvd CVS: tachy, regular, no murmur Resp: bilateral air entry, no rhales/wheeze/rhonchi, no acc muscle use Abdomen: soft, nontender, nondistended, bowel sounds + Ext: pulses+, warm; diffuse redness in bilateral LE with erythema and gross edema, left lower leg has open wound with some serous/purulent like material and right lower leg has another much small wound Skin: as above Neuro: awake, orientedx3, moving all extremities Labs: Laboratory Results - last 24 hr 12/15/18 12/16/18 12/17/18 21:30 15:23 15:31 WBC RBC Hgb Hct MCV MCH MCHC RDW Plt Count MPV INR (Anticoag Therapy) Fibrinogen D-Dimer, Quantitative Sodium Potassium Chloride Carbon Dioxide Anion Gap BUN Creatinine Est GFR ( Amer) Est GFR (Non-Af Amer) BUN/Creatinine Ratio Glucose POC Glucose (mg/dL) 198 H Calcium Total Bilirubin Direct Bilirubin Indirect Bilirubin AST ALT Alkaline Phosphatase Total Protein Albumin Globulin Albumin/Globulin Ratio Procalcitonin 0.38 H Random Vancomycin HIV 1&2 Antibody Nonreactive 12/17/18 12/18/18 12/18/18 20:55 00:08 04:12 WBC RBC Hgb Hct MCV MCH MCHC RDW Plt Count MPV INR (Anticoag Therapy) Fibrinogen D-Dimer, Quantitative Sodium Potassium Chloride Carbon Dioxide Anion Gap BUN Creatinine Est GFR ( Amer) Est GFR (Non-Af Amer) BUN/Creatinine Ratio Glucose POC Glucose (mg/dL) 155 H 159 H 147 H Calcium Total Bilirubin Direct Bilirubin Indirect Bilirubin AST ALT Alkaline Phosphatase Total Protein Albumin Globulin Albumin/Globulin Ratio Procalcitonin Random Vancomycin HIV 1&2 Antibody 12/18/18 12/18/18 12/18/18 06:10 06:10 06:10 WBC 11.0 H RBC 2.96 L Hgb 9.5 L Hct 27 L MCV 93 MCH 32 H MCHC 35 RDW 17 H Plt Count 50 L MPV 7.6 INR (Anticoag Therapy) 1.98 H Fibrinogen D-Dimer, Quantitative Sodium 133 L Potassium 4.3 Chloride 101 Carbon Dioxide 20 L Anion Gap 12 H BUN 74 H Creatinine 5.64 H Est GFR ( Amer) 12.6 Est GFR (Non-Af Amer) 10.4 BUN/Creatinine Ratio 13.1 Glucose 119 H POC Glucose (mg/dL) Calcium 7.9 L Total Bilirubin 8.60 H Direct Bilirubin 4.60 H Indirect Bilirubin 4.0 H AST 76 H ALT 37 Alkaline Phosphatase 103 Total Protein 4.9 L Albumin 2.3 L Globulin 2.6 Albumin/Globulin Ratio 0.9 L Procalcitonin Random Vancomycin 15.4 HIV 1&2 Antibody 12/18/18 12/18/18 12/18/18 09:05 09:05 12:38 WBC RBC Hgb Hct MCV MCH MCHC RDW Plt Count MPV INR (Anticoag Therapy) Fibrinogen 150.6 D-Dimer, Quantitative > 1050 H Sodium Potassium Chloride Carbon Dioxide Anion Gap BUN Creatinine Est GFR ( Amer) Est GFR (Non-Af Amer) BUN/Creatinine Ratio Glucose POC Glucose (mg/dL) 124 H 137 H Calcium Total Bilirubin Direct Bilirubin Indirect Bilirubin AST ALT Alkaline Phosphatase Total Protein Albumin Globulin Albumin/Globulin Ratio Procalcitonin Random Vancomycin HIV 1&2 Antibody Imaging: cxr 12/15 - no acute infiltrate Assessment: 58y M w/pmhx of HTN, Stage 4 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 He left 11/09. Since then family has stated he was doing well up until maybe 5-7 days back. ~2 weeks back he injured his left leg, which was already swollen, and had an open wound. Since then the wound and left have gotten worse, left has started to turn red, increasing drainage from serous to more pus like. The right leg also has an injury and that may have also been on purpose. The right leg turned red with some mild drainage compared to left leg. They report confusion x3 days. Mild SOB on exertion x3 days. LE swelling has been increased for many days. No diarrhea/n/v. Chills+ for 3 days. Patient states he continued taking Lasix and lactulose/rifaxamin. He reports decreased urine output. In ER, temp 97, BP 90- 100s, HR 90s, on RA sat 99%. -Severe sepsis with shock -Bilateral LE Cellulitus -MELISSA, started HD 2/ -Hyperkalemia -Metabolic Acidosis -acute decompensated Cirrhosis -delirium -hypoglycemia -thrombocytopenia Plan: Neuro- more awake/alert, back to baseline. cont lactulose/rifaxamin PO. delirium prec. asp prec.pain control PRN CVS- BP 110s, off nuria, on low dose levo; can prob wean off. midodrine 5mg q8h. d/c NS, decrease d5ns to 25cc/hr. Oliguric still. Maintain Map>65. IV abx. Resp- RA, no distress. CXR without infiltrate 2/5. Bronchodilators PRN. Asp prec ID- temp 97, wbc 11. Bilateral LE erythema, open wounds, drainage+, edema+. CXR withotu focal infiltrate. Blood cx neg so far. Urinalysis neg so far. -Empiric IV abx for cellulitus to cover gram+/anaerobes, IV zosyn (days#4) and Vanco (day#4) 1gm x1 today again, random vanco 15 GI- -better mental status; Renal diet, mechanical soft. -history of cirrhosis, noted low albumin and elevated Tbili (which is lower than prior) -possible hepatorenal; albumin + pressors + midodrine -cont rifaxamin/lactulose; ammonia better; mental status better -he left [place] from [place] during Liver transpl w/u; unclear if he would continue that again. By tomorrow will discuss if he wishes to transfer for continued workup, now that he also is in MELISSA/HD Renal- -Oliguric MELISSA, now on new HD, UF; oliguric, acidosis mild; plan for HD today with 3kg off planned -unclear if MELISSA may resolve now, so far slow progress. -Will trial Lasix IV push tomorrow if still oliguric -d/c ns, dec d5ns to 25 Heme- anemia, hg 9-10, no bleeding noted. Platelets 50s , suspect sequestration vs sepsis. Maintain hg>7. Hold DVT chem proph for thrombocytopenia. Endo- fingerstick q4h; hypoglycemia better; dec D5NS to 25cc/hr. PO diet start Musculsk- pressure ulcer prophylaxis. Bedrest today, oob to cahir later today tomorrow Wounds- wound care to Lower ext for wounds. Nutrition- renal diet DVT prophylaxis: no SCDs due to LE wounds; no chemical proph due to low plt GI prophylaxis: h2b Central Line: Right IJ TLC and HD 2/6 Arterial Line: no Casanova Cathetor: yes Disposition: Patient requires Critical Care/ICU for severe sepsis, MELISSA, hyperkalemia, cirrhosis, delirium Patient Clinical Status: critical Code Status: full code Total Critical Care time is 35 minutes, excluding procedures/teaching Ishan Monge MD Quality Control Engineering Technician (Electronically Signed)
[2018-12-18] MEDS: Norepinephrine 16MCG/ML IVPRE* 4,000 MCG/250 ML BAG IV SCH ×2 (15:34→21:54)
[2018-12-18 16:19] LABS: Hepatitis Be Antigen Negative (Negative)
[2018-12-18] MEDS ORDERED: Heparin DIALYSIS ONLY(*) 1,000 UNITS/ML VIAL DIALYSIS ONE (17:01)
[2018-12-18 17:06] LABS: Hepatitis Be Antibody Negative (Negative)
[2018-12-18] MEDS ORDERED: Metoprolol Tartrate IV* 1 MG/ML 5 ML VIAL ONE (18:13)
[2018-12-19] MEDS: HYDROmorphone TAB* 2 MG PO PRN ×3 (02:00→21:53)
[2018-12-19] MEDS: Norepinephrine 16MCG/ML IVPRE* 4,000 MCG/250 ML BAG IV SCH ×4 (02:05→21:32)
[2018-12-19] MEDS: CMCS:Midodrine (NF) 5 MG TAB PO SCH ×3 (05:27→21:49)
[2018-12-19] MEDS ORDERED: Vancomycin Random Level* NOTE FOLLOW UP ONE (06:00)
[2018-12-19 06:13] LABS: BUN/Creatinine Ratio 11.4 (8-20); Calcium 7.6 mg/dL (8.6-10.3); EGFR African American 16.1 (>60); EGFR Non-African American 13.3 (>60)
[2018-12-19 06:18] LABS: Hematocrit 24 % (42-52); Hemoglobin 8.3 g/dl (14.0-18.0); Mean Corpuscular HGB Conc 35 g/dl (31-36); Mean Corpuscular Hemoglobin 32 pg (27-31); Mean Corpuscular Volume 92 fL (80-94); Mean Platelet Volume 8.1 fL (7.4-10.4); Platelet Count 35 10^3/ul (150-450); Red Blood Count 2.58 10^6/ul (4.00-5.40); Red Cell Distribution Width 17 % (10.5-15); White Blood Count 9.9 10^3/ul (3.5-10.8)
[2018-12-19] MEDS: ZOSYN 3.375 GM Q12H per EXTENDED INFUSION IVPB SCH ×4 (06:22→19:39)
[2018-12-19 06:45] LABS: Vancomycin Random 17.3 mcg/mL
[2018-12-19] MEDS: RiFAXimin* 550 MG TAB PO SCH ×2 (09:43→21:49)
[2018-12-19] MEDS: Famotidine TAB* 20 MG PO SCH (09:43)
[2018-12-19] MEDS: Collagenase 250 MG/GM OINT* 30 GM TOPICAL SCH (09:44)
[2018-12-19] MEDS ORDERED: Furosemide IV* 10 MG/ML 10 ML VIAL (100 MG) IV ONE (11:48)
[2018-12-19] MEDS ORDERED: Albumin Human 5%* 250 GM/250 ML BTL IV ONE (11:48)
--- NOTE | 2018-12-19 11:57 | PN ---
Progress Note - Progress Note Date of Service: 12/19/18 Note: Progress Note -- Critical Care 24 hour events -no events overnight -off pressors now -awake, alert, no complaints; feels better -afebrile Tele: NSR Vitals: Vital Signs Temp 97.7 F 12/19/18 09:01 Pulse 91 12/19/18 09:01 Resp 16 12/19/18 09:01 BP 107/64 12/19/18 09:00 Pulse Ox 99 12/19/18 09:01 Intake & Output 12/18/18 12/19/18 12/19/18 18:59 06:59 18:59 Intake Total 1614 572 616 Output Total 298 55 60 Balance 1316 517 556 Weight 135 kg 136.793 kg Intake: IV Fluids 608 403 136 D5NS 404 403 136 NS (0.9%) 204 IVPB 350 110 ABX - VANCOMYCIN 250 ABX - ZOSYN 100 110 Medicated IV 216 59 levophed 216 59 Oral 440 480 Output: Casanova 298 45 60 Straight Cath 10 Other: Date of Last Bowel 12/18/18 Movement # Bowel Movements 1 Estimated Stool Amount Medium O2/Vent: RA Infusions: levo off, d5ns 25 Current Medications: Albuterol (Ventolin 2.5 Mg/3 Ml Neb.Laurie*) 2.5 mg INH Q4H PRN PRN Reason: SOB/WHEEZING Collagenase (Santyl 250 Mg/Gm Oint*) 1 applic TOPICAL DAILY [facility] Last Admin: 12/19/18 09:44 Dose: 1 applic Dextrose (Dextrose 50% Vial 50 Ml*) 50 ml IV ONCE PRN PRN Reason: hyperkalemia Last Admin: 12/15/18 17:39 Dose: 50 ml Famotidine (Pepcid Tab*) 20 mg PO DAILY [facility] Last Admin: 12/19/18 09:43 Dose: 20 mg Furosemide (Lasix Iv*) 60 mg IV ONCE ONE Stop: 12/19/18 11:49 Hydromorphone HCl (Dilaudid Inj1s*) 1 mg IV SLOW PU Q4H PRN PRN Reason: PAIN - SEVERE Last Admin: 12/17/18 13:01 Dose: 1 mg Hydromorphone HCl (Dilaudid Tab*) 2 mg PO Q4H PRN PRN Reason: PAIN - MODERATE Last Admin: 12/19/18 02:00 Dose: 2 mg Piperacillin Sod/Tazobactam (Sod 3.375 gm/ Sodium Chloride) 100 mls @ 25 mls/ hr IVPB Q12H [facility] Last Admin: 12/19/18 06:22 Dose: 25 mls/hr Norepinephrine Bitartrate (Levophed 16 Mcg/Ml Premix Bag*) 4,000 mcg in 250 mls @ 37.5 mls/hr IV Q6H [facility]; Protocol Last Admin: 12/19/18 09:44 Dose: Not Given Dextrose/Sodium Chloride (D5ns 0.9% 1000 Ml Bag*) 1,000 mls @ 25 mls/hr IV PER RATE [facility] Last Admin: 12/19/18 11:11 Dose: 25 mls/hr Lactulose (Lactulose*) 30 ml PO TID [facility] Last Admin: 12/19/18 09:43 Dose: 30 ml Midodrine (Midodrine (Nf)) 5 mg PO Q8H [facility]; Protocol Last Admin: 12/19/18 05:27 Dose: 5 mg Pharmacy Consult (Zosyn Per Pharmacy*) 1 note FOLLOW UP .ZOSYN PER PHARMACY [facility] Rifaximin (Xifaxan*) 550 mg PO BID [facility] Last Admin: 12/19/18 09:43 Dose: 550 mg Physical Exam: General: awake, no distress, no diaphoresis Head: normocephalic, atraumatic HEENT: no pallor, no icterus, moist mucous membranes Neck: soft, supple, no jvd CVS: tachy, regular, no murmur Resp: bilateral air entry, no rhales/wheeze/rhonchi, no acc muscle use Abdomen: soft, nontender, nondistended, bowel sounds + Ext: pulses+, warm; improved erythema in b/l LE, edema+, left lower leg has open wound but less drainage and right lower leg has another much smaller wound Skin: as above Neuro: awake, orientedx3, moving all extremities Labs: Laboratory Results - last 24 hr 12/16/18 12/18/18 12/18/18 15:23 12:38 16:40 WBC RBC Hgb Hct MCV MCH MCHC RDW Plt Count MPV Sodium Potassium Chloride Carbon Dioxide Anion Gap BUN Creatinine Est GFR ( Amer) Est GFR (Non-Af Amer) BUN/Creatinine Ratio Glucose POC Glucose (mg/dL) 137 H 127 H Calcium Ammonia Random Vancomycin Hepatitis Be Antibody Negative Hepatitis Be Antigen Negative 12/18/18 12/19/18 12/19/18 22:22 01:55 05:25 WBC RBC Hgb Hct MCV MCH MCHC RDW Plt Count MPV Sodium Potassium Chloride Carbon Dioxide Anion Gap BUN Creatinine Est GFR ( Amer) Est GFR (Non-Af Amer) BUN/Creatinine Ratio Glucose POC Glucose (mg/dL) 125 H 135 H Calcium Ammonia 47 Random Vancomycin Hepatitis Be Antibody Hepatitis Be Antigen 12/19/18 12/19/18 12/19/18 05:25 05:25 05:25 WBC 9.9 RBC 2.58 L Hgb 8.3 L Hct 24 L MCV 92 MCH 32 H MCHC 35 RDW 17 H Plt Count 35 L MPV 8.1 Sodium 132 L Potassium 4.0 Chloride 99 L Carbon Dioxide 25 Anion Gap 8 BUN 52 H Creatinine 4.55 H Est GFR ( Amer) 16.1 Est GFR (Non-Af Amer) 13.3 BUN/Creatinine Ratio 11.4 Glucose 89 POC Glucose (mg/dL) 112 H Calcium 7.6 L Ammonia Random Vancomycin 17.3 Hepatitis Be Antibody Hepatitis Be Antigen 12/19/18 07:51 WBC RBC Hgb Hct MCV MCH MCHC RDW Plt Count MPV Sodium Potassium Chloride Carbon Dioxide Anion Gap BUN Creatinine Est GFR ( Amer) Est GFR (Non-Af Amer) BUN/Creatinine Ratio Glucose POC Glucose (mg/dL) 103 H Calcium Ammonia Random Vancomycin Hepatitis Be Antibody Hepatitis Be Antigen Imaging: cxr 12/15 - no acute infiltrate Assessment: 58y M w/pmhx of HTN, Stage 4 Cirrhosis 2/2 to hemochromatosis; Recent admission to [facility] [place], found to have cirrhosis, transferred to [place] for Liver transplant workup but left AMA during workup. He left 11/09. Since then family has stated he was doing well up until maybe 5-7 days back. ~2 weeks back he injured his left leg, which was already swollen, and had an open wound. Since then the wound and left have gotten worse, left has started to turn red, increasing drainage from serous to more pus like. The right leg also has an injury and that may have also been on purpose. The right leg turned red with some mild drainage compared to left leg. They report confusion x3 days. Mild SOB on exertion x3 days. LE swelling has been increased for many days. No diarrhea/n/v. Chills+ for 3 days. Patient states he continued taking Lasix and lactulose/rifaxamin. He reports decreased urine output. In ER, temp 97, BP 90- 100s, HR 90s, on RA sat 99%. -Severe sepsis with shock, improved -Bilateral LE Cellulitus -MELISSA, started HD 2/6 -Hyperkalemia -Metabolic Acidosis -acute decompensated Cirrhosis -delirium -hypoglycemia -thrombocytopenia Plan: Neuro- awake/alert, back to baseline. cont lactulose/rifaxamin PO. delirium prec. asp prec.pain control PRN CVS- BP 110s, off levo. cont midodrine 5mg q8h. can prob d/c d5ns given hypoglyc improved. albumin 250cc 5% x1. Lasix 60mg IV x1. -Maintain Map>65. IV abx. Resp- RA, no distress. CXR without infiltrate 2/5. Bronchodilators PRN. Asp prec ID- temp 97, wbc 9. Bilateral LE erythema/cellulitus, appears better. no growth on blood culture. -Cont IV abx for cellulitus to cover gram+/anaerobes, IV zosyn (days#5) ; d/c vanco. MRSA negative overall. GI- -Renal diet, mechanical soft. -history of cirrhosis, noted low albumin and elevated Tbili (which is lower than prior) -possible hepatorenal; albumin + midodrine -cont rifaxamin/lactulose -he left [place] from [place] during Liver transpl w/u; unclear if he would continue that again. By tomorrow will discuss if he wishes to transfer for continued workup, now that he also is in MELISSA/HD Renal- -Oliguric MELISSA, now on new HD, UF; oliguric; s/p HD 2/ 3kg off -will give albumin 250cc 5% today; lasix 60mg IV x1 to see if responsive -unclear if MELISSA may resolve now, so far slow progress. -d/c NS and d5ns today Heme- anemia, hg drop 8-9, check h/h 3pm, no bleeding noted. Platelets 30s , suspect sequestration vs sepsis. Maintain hg>7. Hold DVT chem proph for thrombocytopenia. Endo- hypoglycemia better, likely to d/c d5ns today. PO diet Musculsk- pressure ulcer prophylaxis. oob to chair Wounds- wound care to Lower ext for wounds. Nutrition- renal diet DVT prophylaxis: no SCDs due to LE wounds; no chemical proph due to low plt GI prophylaxis: h2b Central Line: Right IJ TLC and HD 2/6 Arterial Line: no Casanova Cathetor: yes Disposition: Patient requires Critical Care/ICU for severe sepsis, MELISSA, hyperkalemia, cirrhosis, delirium Patient Clinical Status: critical Code Status: full code Ishan Monge MD Assistant Housekeeping Manager (Electronically Signed)
[2018-12-19] MEDS ORDERED: Vancomycin(*) 750 MG in NS 0.9% 250 ML* 250 ML IVPB SCH (12:00)
[2018-12-19] MEDS: HYDROmorphone INJ1* 1 MG/ML SYRINGE IV SLOW PU PRN ×2 (12:42→17:50)
[2018-12-19 15:33] LABS: Hematocrit 29 % (42-52); Hemoglobin 10.1 g/dl (14.0-18.0)
[2018-12-20] MEDS: Norepinephrine 16MCG/ML IVPRE* 4,000 MCG/250 ML BAG IV SCH ×2 (02:15→08:04)
[2018-12-20] MEDS: CMCS:Midodrine (NF) 5 MG TAB PO SCH ×3 (05:12→20:11)
[2018-12-20 05:26] LABS: Hematocrit 28 % (42-52); Hemoglobin 9.3 g/dl (14.0-18.0); Mean Corpuscular HGB Conc 33 g/dl (31-36); Mean Corpuscular Hemoglobin 31 pg (27-31); Mean Corpuscular Volume 93 fL (80-94); Mean Platelet Volume 8.2 fL (7.4-10.4); Platelet Count 35 10^3/ul (150-450); Red Blood Count 2.98 10^6/ul (4.00-5.40); Red Cell Distribution Width 17 % (10.5-15); White Blood Count 13.9 10^3/ul (3.5-10.8)
[2018-12-20 05:37] LABS: BUN/Creatinine Ratio 11.4 (8-20); Calcium 8.1 mg/dL (8.6-10.3); EGFR African American 13.6 (>60); EGFR Non-African American 11.2 (>60)
[2018-12-20] MEDS: ZOSYN 3.375 GM Q12H per EXTENDED INFUSION IVPB SCH ×2 (06:10)
[2018-12-20] MEDS: RiFAXimin* 550 MG TAB PO SCH ×2 (07:46→20:11)
[2018-12-20] MEDS: Famotidine TAB* 20 MG PO SCH (07:47)
[2018-12-20] MEDS: HYDROmorphone TAB* 2 MG PO PRN ×2 (07:51→20:11)
[2018-12-20] MEDS: Collagenase 250 MG/GM OINT* 30 GM TOPICAL SCH (07:55)
--- NOTE | 2018-12-20 10:19 | PN ---
Progress Note - Progress Note Date of Service: 12/20/18 Note: Progress Note -- Critical Care 24 hour events -no events overnight -off pressors -awake, alert, no complaints; feels better -afebrile -still with poor urine output Tele: NSR Vitals: Vital Signs Temp 97.7 F 12/20/18 07:00 Pulse 90 12/20/18 07:00 Resp 20 12/20/18 07:51 BP 108/65 12/20/18 07:00 Pulse Ox 93 12/20/18 07:00 Intake & Output 12/19/18 12/20/18 12/20/18 18:59 06:59 18:59 Intake Total 2647 566 Output Total 225 283 25 Balance 2422 283 -25 Weight 136.714 kg Intake: IV Fluids 237 446 D5NS 237 446 IVPB 250 120 ABX - ZOSYN 120 Albumin 250 Oral 2160 Output: Urine 15 Casanova 210 283 25 O2/Vent: RA Infusions: d5ns 25 Current Medications: Albuterol (Ventolin 2.5 Mg/3 Ml Neb.Laurie*) 2.5 mg INH Q4H PRN PRN Reason: SOB/WHEEZING Collagenase (Santyl 250 Mg/Gm Oint*) 1 applic TOPICAL DAILY [facility] Last Admin: 12/20/18 07:55 Dose: 1 applic Dextrose (Dextrose 50% Vial 50 Ml*) 50 ml IV ONCE PRN PRN Reason: hyperkalemia Last Admin: 12/15/18 17:39 Dose: 50 ml Famotidine (Pepcid Tab*) 20 mg PO DAILY [facility] Last Admin: 12/20/18 07:47 Dose: 20 mg Hydromorphone HCl (Dilaudid Inj1s*) 1 mg IV SLOW PU Q4H PRN PRN Reason: PAIN - SEVERE Last Admin: 12/19/18 17:50 Dose: 1 mg Hydromorphone HCl (Dilaudid Tab*) 2 mg PO Q4H PRN PRN Reason: PAIN - MODERATE Last Admin: 12/20/18 07:51 Dose: 2 mg Piperacillin Sod/Tazobactam (Sod 3.375 gm/ Sodium Chloride) 100 mls @ 25 mls/ hr IVPB Q12H [facility] Last Admin: 12/20/18 06:10 Dose: 25 mls/hr Norepinephrine Bitartrate (Levophed 16 Mcg/Ml Premix Bag*) 4,000 mcg in 250 mls @ 37.5 mls/hr IV Q6H [facility]; Protocol Last Admin: 12/20/18 08:04 Dose: Not Given Lactulose (Lactulose*) 30 ml PO TID [facility] Last Admin: 12/20/18 07:47 Dose: 30 ml Midodrine (Midodrine (Nf)) 5 mg PO Q8H [facility]; Protocol Last Admin: 12/20/18 05:12 Dose: 5 mg Pharmacy Consult (Zosyn Per Pharmacy*) 1 note FOLLOW UP .ZOSYN PER PHARMACY [facility] Rifaximin (Xifaxan*) 550 mg PO BID [facility] Last Admin: 12/20/18 07:46 Dose: 550 mg Physical Exam: General: awake, no distress, no diaphoresis Head: normocephalic, atraumatic HEENT: no pallor, no icterus, moist mucous membranes Neck: soft, supple, no jvd CVS: tachy, regular, no murmur Resp: bilateral air entry, no rhales/wheeze/rhonchi, no acc muscle use Abdomen: soft, nontender, nondistended, bowel sounds + Ext: pulses+, warm; improved erythema in b/l LE, edema+, left lower leg has open wound but less drainage and right lower leg has another much smaller wound Skin: as above Neuro: awake, orientedx3, moving all extremities Labs: Laboratory Results - last 24 hr 12/19/18 12/19/18 12/20/18 12:49 15:25 05:10 WBC RBC Hgb 10.1 L Hct 29 L MCV MCH MCHC RDW Plt Count MPV Sodium 131 L Potassium 4.0 Chloride 99 L Carbon Dioxide 22 Anion Gap 10 BUN 60 H Creatinine 5.28 H Est GFR ( Amer) 13.6 Est GFR (Non-Af Amer) 11.2 BUN/Creatinine Ratio 11.4 Glucose 89 POC Glucose (mg/dL) 123 H Calcium 8.1 L 12/20/18 05:10 WBC 13.9 H RBC 2.98 L Hgb 9.3 L Hct 28 L MCV 93 MCH 31 MCHC 33 RDW 17 H Plt Count 35 L MPV 8.2 Sodium Potassium Chloride Carbon Dioxide Anion Gap BUN Creatinine Est GFR ( Amer) Est GFR (Non-Af Amer) BUN/Creatinine Ratio Glucose POC Glucose (mg/dL) Calcium Imaging: cxr 12/15 - no acute infiltrate Assessment: 58y M w/pmhx of HTN, Stage 4 Cirrhosis 2/2 to hemochromatosis; Recent admission to [facility] [place], found to have cirrhosis, transferred to [place] for Liver transplant workup but left AMA during workup. He left 11/09. Since then family has stated he was doing well up until maybe 5-7 days back. ~2 weeks back he injured his left leg, which was already swollen, and had an open wound. Since then the wound and left have gotten worse, left has started to turn red, increasing drainage from serous to more pus like. The right leg also has an injury and that may have also been on purpose. The right leg turned red with some mild drainage compared to left leg. They report confusion x3 days. Mild SOB on exertion x3 days. LE swelling has been increased for many days. No diarrhea/n/v. Chills+ for 3 days. Patient states he continued taking Lasix and lactulose/rifaxamin. He reports decreased urine output. In ER, temp 97, BP 90- 100s, HR 90s, on RA sat 99%. -Severe sepsis with shock, improved -Bilateral LE Cellulitus -MELISSA, started HD 12/16 -Hyperkalemia -Metabolic Acidosis -acute decompensated Cirrhosis -delirium -hypoglycemia -thrombocytopenia Plan: Neuro- awake/alert, back to baseline. cont lactulose/rifaxamin PO. delirium prec. asp prec.pain control PRN CVS- BP 110s, off levo. cont midodrine 5mg q8h. -plan for HD tomorrow; appears slightly hypervolemic; off IVF now, d/c d5ns; po diet -Maintain Map>65. IV abx. Resp- RA, no distress. CXR without infiltrate 12/15. Bronchodilators PRN. Asp prec ID- temp 97, wbc 9. Bilateral LE erythema/cellulitus, appears better. no growth on blood culture. -Cont IV abx for cellulitus to cover gram+/anaerobes, IV zosyn (days#6). MRSA negative GI- -Renal diet, mechanical soft. -history of cirrhosis, noted low albumin and elevated Tbili (which is lower than prior) -possible hepatorenal; continued midodrine, albumin as needed -cont rifaxamin/lactulose -he left AMA from [place] during Liver transpl w/u; unclear if he would continue that again. Discussed with him this morning, he does not wish to , he understands and wishes to go back to [place] for w/u for liver transplant and possibly even renal transplant given new MELISSA requiring HD. Will contact [facility] for evaluation. no beds available today, will have to retry daily. -d/c h2b, no indication at this time. Renal- -Oliguric MELISSA, now on new HD, UF; oliguric -some reponse to IV lasix yesterday but still remains oliguric -no acidosis, K okay, some overload noted but no resp distress -cont midodrine -no HD planned today, re-eval tomorrow -no bed available today for transfer to [facility] about liver + possible renal w/u; will have to try again tomorrow Heme- anemia, hg 9-10. Platelets 30s , suspect sequestration vs sepsis. no bleeding noted, no transfusion indicated at this time. Maintain hg>7. Hold DVT chem proph for thrombocytopenia. Endo- hypoglycemia better, d/c d5ns. PO diet Musculsk- pressure ulcer prophylaxis. oob to chair Wounds- wound care to Lower ext for wounds. Nutrition- renal diet DVT prophylaxis: no SCDs due to LE wounds; no chemical proph due to low plt GI prophylaxis: - Central Line: Right IJ TLC and HD 2/6 Arterial Line: no Casanova Cathetor: yes, d/c today Disposition: stable for trasnfer to medical floor Patient Clinical Status: stable Code Status: full code Ishan Monge MD Boy'S Adviser (Electronically Signed)
[2018-12-20] MEDS ORDERED: HYDROmorphone TAB* 2 MG PO ONE (16:06)
[2018-12-21] MEDS: HYDROmorphone INJ1* 1 MG/ML SYRINGE IV SLOW PU PRN ×2 (04:05→20:45)
[2018-12-21] MEDS: CMCS:Midodrine (NF) 5 MG TAB PO SCH ×3 (04:05→20:52)
[2018-12-21 06:26] LABS: Hematocrit 28 % (42-52); Hemoglobin 9.3 g/dl (14.0-18.0); Mean Corpuscular HGB Conc 34 g/dl (31-36); Mean Corpuscular Hemoglobin 31 pg (27-31); Mean Corpuscular Volume 92 fL (80-94); Mean Platelet Volume 7.9 fL (7.4-10.4); Platelet Count 49 10^3/ul (150-450); Red Blood Count 2.99 10^6/ul (4.00-5.40); Red Cell Distribution Width 17 % (10.5-15); White Blood Count 15.8 10^3/ul (3.5-10.8)
[2018-12-21 06:43] LABS: BUN/Creatinine Ratio 12.6 (8-20); Calcium 8.4 mg/dL (8.6-10.3); EGFR African American 12.3 (>60); EGFR Non-African American 10.2 (>60); Potassium 3.9 mmol/L (3.5-5.0)
[2018-12-21] MEDS: Collagenase 250 MG/GM OINT* 30 GM TOPICAL SCH (08:13)
[2018-12-21] MEDS: RiFAXimin* 550 MG TAB PO SCH ×2 (08:13→20:52)
[2018-12-21 10:25] LABS: Albumin 2.2 g/dL (3.2-5.2); Albumin/Globulin Ratio 0.8 (1-3); Globulin 2.7 g/dL (2-4); Indirect Bilirubin 4.1 mg/dL (0.3-1.0); Total Bilirubin 9.1 mg/dL (0.2-1.0); Total Protein 4.9 g/dL (6.4-8.9)
[2018-12-21] MEDS: HYDROmorphone TAB* 2 MG PO PRN (10:52)
[2018-12-21 11:29] LABS: INR 1.85 (0.77-1.02)
[2018-12-21] MEDS ORDERED: Vancomycin Trough Check NOTE FOLLOW UP ONE (12:00)
[2018-12-21 12:26] LABS: Magnesium 2.2 mg/dL (1.9-2.7)
[2018-12-21] MEDS ORDERED: EPOETIN ALFA-EPBX * 10,000 UNIT/ML VIAL IV ONE (12:30)
[2018-12-21] MEDS ORDERED: Heparin DIALYSIS ONLY(*) 1,000 UNITS/ML VIAL DIALYSIS ONE (13:00)
[2018-12-21] MEDS: Metoprolol Succinate XL TAB* 25 MG PO SCH (13:31)
--- NOTE | 2018-12-21 15:12 | PN ---
Subjective Date of Service: 12/21/18 Interval History: HOSPITALIST PROGRESS NOTE Patient seen and examined at bedside. Care reviewed and d/w Zaira Gaines RN. He offers no new complaints today. Happy his Casanova catheter is out. Thinks he' ll be able to walk to bathroom. Denies abdominal pain, shortness of breath, CP. Had mild nausea earlier, but tolerating diet. Family History: Unchanged from Admission Social History: Unchanged from Admission Past Medical History: Unchanged from Admission Objective Active Medications: Albuterol (Ventolin 2.5 Mg/3 Ml Neb.Laurie*) 2.5 mg INH Q4H PRN PRN Reason: SOB/WHEEZING Collagenase (Santyl 250 Mg/Gm Oint*) 1 applic TOPICAL DAILY [facility] Last Admin: 12/21/18 08:13 Dose: 1 applic Dextrose (Dextrose 50% Vial 50 Ml*) 50 ml IV ONCE PRN PRN Reason: hyperkalemia Last Admin: 12/15/18 17:39 Dose: 50 ml Hydromorphone HCl (Dilaudid Inj1s*) 1 mg IV SLOW PU Q4H PRN PRN Reason: PAIN - SEVERE Last Admin: 12/21/18 04:05 Dose: 1 mg Hydromorphone HCl (Dilaudid Tab*) 2 mg PO Q6H PRN PRN Reason: PAIN - MODERATE Last Admin: 12/21/18 10:52 Dose: 2 mg Lactulose (Lactulose*) 30 ml PO TID [facility] Last Admin: 12/21/18 08:13 Dose: 15 ml Metoprolol Succinate (Toprol Xl Tab*) 12.5 mg PO DAILY [facility] Last Admin: 12/21/18 13:31 Dose: 12.5 mg Midodrine (Midodrine (Nf)) 5 mg PO Q8H [facility]; Protocol Last Admin: 12/21/18 12:04 Dose: 5 mg Rifaximin (Xifaxan*) 550 mg PO BID [facility] Last Admin: 12/21/18 08:13 Dose: 550 mg Vital Signs - 8 hr 12/21/18 12/21/18 12/21/18 07:36 08:00 10:52 Temperature 98.3 F Pulse Rate 103 Respiratory 18 18 14 Rate Blood Pressure 132/73 (mmHg) O2 Sat by Pulse 97 Oximetry 02/11/19 02/11/19 11:29 12:50 Temperature 98.1 F Pulse Rate 127 Respiratory 18 16 Rate Blood Pressure 114/70 (mmHg) O2 Sat by Pulse 95 Oximetry Oxygen Devices in Use Now: None Appearance: Middle aged gentleman, appears older than stated age, lying in bed in NAD. 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 - Patient Problems (1) Septic shock Comment: - Tachycardia, leukocytosis, lactic acidosis on admission; required pressors. - Source is LE cellulitis. (2) Cellulitis and abscess of leg Comment: - Completed 7 days of Zosyn. - Continue Santyl to LE wounds. (3) MELISSA (acute kidney injury) Comment: - Likely with component of ATN. - D/w Nephrology - recommended continuation of dyalisis for now; may take a couple weeks to see improvement of renal function (if it improves). (4) Cirrhosis due to hemochromatosis Comment: - Case d/w Chelly Littlejohn RN (academic services coordinator) who also contacted [employer] (Dr Rice) - patient was very non compliant with their recommendations while admitted and left AMA. They don't think he would qualify for transplant/transfer at this time. Their recommendation at this time is for the patient to see them in follow up as outpatient after discharge. If he decompensates while in the hospital, they would recommend transfer to Medical service with Transplant consultation. (5) Thrombocytopenia Comment: - Secondary to hypersplenism - trending up. (6) Physical deconditioning Comment: - PT/OT - will likely need QUINTEN. (7) DVT prophylaxis Comment: - Pharmacological prophylaxis contraindicated in the setting of thrombocytopenia and SCDs contraindicated due to LE wounds. (8) Full code status Status and Disposition: Inpatient.
[2018-12-21] MEDS ORDERED: Metoprolol Tartrate TAB* 25 MG PO ONE (20:01)
[2018-12-22] MEDS: HYDROmorphone INJ1* 1 MG/ML SYRINGE IV SLOW PU PRN ×2 (04:25→09:37)
[2018-12-22] MEDS: CMCS:Midodrine (NF) 5 MG TAB PO SCH ×3 (04:28→19:22)
[2018-12-22 04:57] LABS: Hematocrit 31 % (42-52); Hemoglobin 10.2 g/dl (14.0-18.0); Mean Corpuscular HGB Conc 33 g/dl (31-36); Mean Corpuscular Hemoglobin 31 pg (27-31); Mean Corpuscular Volume 92 fL (80-94); Mean Platelet Volume 8.5 fL (7.4-10.4); Platelet Count 80 10^3/ul (150-450); Red Blood Count 3.32 10^6/ul (4.00-5.40); Red Cell Distribution Width 18 % (10.5-15); White Blood Count 17.4 10^3/ul (3.5-10.8)
[2018-12-22 05:11] LABS: BUN/Creatinine Ratio 10.2 (8-20); Calcium 8.4 mg/dL (8.6-10.3); EGFR African American 14.8 (>60); EGFR Non-African American 12.2 (>60); Potassium 3.8 mmol/L (3.5-5.0)
[2018-12-22] MEDS ORDERED: Ondansetron INJ* 2 MG/ML VIAL IV ONE (09:30)
[2018-12-22] MEDS: Metoprolol Succinate XL TAB* 25 MG PO SCH (10:19)
[2018-12-22] MEDS: RiFAXimin* 550 MG TAB PO SCH ×2 (10:19→20:59)
[2018-12-22] MEDS: Collagenase 250 MG/GM OINT* 30 GM TOPICAL SCH (10:27)
[2018-12-22] MEDS ORDERED: Metoprolol Succinate XL TAB* 25 MG PO ONE (14:49)
--- NOTE | 2018-12-22 16:31 | PN ---
Subjective Date of Service: 12/22/18 Interval History: HOSPITALIST PROGRESS NOTE Patient seen and examined at bedside. Care reviewed and d/w Henri Jackson RN. He offers no new complaints today. Denies CP, palpitations, dyspnea. Complained about BMs with lactulose but understands why he needs to take the medication. Family History: Unchanged from Admission Social History: Unchanged from Admission Past Medical History: Unchanged from Admission Objective Active Medications: Albuterol (Ventolin 2.5 Mg/3 Ml Neb.Laurie*) 2.5 mg INH Q4H PRN PRN Reason: SOB/WHEEZING Collagenase (Santyl 250 Mg/Gm Oint*) 1 applic TOPICAL DAILY [facility] Last Admin: 12/22/18 10:27 Dose: 1 applic Dextrose (Dextrose 50% Vial 50 Ml*) 50 ml IV ONCE PRN PRN Reason: hyperkalemia Last Admin: 12/15/18 17:39 Dose: 50 ml Hydromorphone HCl (Dilaudid Inj1s*) 1 mg IV SLOW PU Q4H PRN PRN Reason: PAIN - SEVERE Last Admin: 12/22/18 09:37 Dose: 1 mg Hydromorphone HCl (Dilaudid Tab*) 2 mg PO Q6H PRN PRN Reason: PAIN - MODERATE Last Admin: 12/21/18 10:52 Dose: 2 mg Lactulose (Lactulose*) 30 ml PO TID [facility] Last Admin: 12/22/18 14:00 Dose: 30 ml Metoprolol Succinate (Toprol Xl Tab*) 25 mg PO DAILY [facility] Midodrine (Midodrine (Nf)) 5 mg PO Q8H [facility]; Protocol Last Admin: 12/22/18 14:00 Dose: 5 mg Rifaximin (Xifaxan*) 550 mg PO BID [facility] Last Admin: 12/22/18 10:19 Dose: 550 mg Vital Signs - 8 hr 12/22/18 12/22/18 12/22/18 08:51 09:37 11:17 Temperature 98.1 F Pulse Rate 99 Respiratory 20 16 18 Rate Blood Pressure 113/66 (mmHg) O2 Sat by Pulse 96 Oximetry 12/22/18 11:27 Temperature 98.3 F Pulse Rate 96 Respiratory 16 Rate Blood Pressure 126/66 (mmHg) O2 Sat by Pulse 95 Oximetry Oxygen Devices in Use Now: None Appearance: Obese gentleman lying in bed in NAD. 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 - Patient Problems (1) SIRS (systemic inflammatory response syndrome) Comment: - Meets sepsis criteria with leukocytosis and tachycardia, but no clear source of infection. Remains afebrile, denies CP, dyspnea or other complaints. - States his legs look much better than before. - Will repeat UA. - Continue to monitor closely for signs of recurrent infection. (2) Sinus tachycardia Comment: - See above. - No hypoxia, CP, or dyspnea. - Increase Metoprolol. (3) Septic shock Comment: - Shock is resolved. - Tachycardia, leukocytosis, lactic acidosis on admission; required pressors. - Source is LE cellulitis. (4) Cellulitis and abscess of leg Comment: - Completed 7 days of Zosyn. - Continue Santyl to LE wounds. (5) MELISSA (acute kidney injury) Comment: - Likely with component of ATN. - D/w Nephrology - recommended continuation of dyalisis for now; may take a couple weeks to see improvement of renal function (if it improves). (6) Cirrhosis due to hemochromatosis Comment: - Case d/w Chelly Littlejohn RN (property coordinator) on 12/21/18 who also contacted [employer] (Dr Rice) - patient was very non compliant with their recommendations while admitted and left AMA. They don't think he would qualify for transplant/transfer at this time. Their recommendation at this time is for the patient to see them in follow up as outpatient after discharge. If he decompensates while in the hospital, they would recommend transfer to Medical service with Transplant consultation. (7) Thrombocytopenia Comment: - Secondary to hyperesplenism - trending up. (8) Physical deconditioning Comment: - PT/OT - will likely need QUINTEN. (9) DVT prophylaxis Comment: - Pharmacological prophylaxis contraindicated in the setting of thrombocytopenia and SCDs contraindicated due to LE wounds. (10) Full code status Status and Disposition: Inpatient.
[2018-12-22] MEDS: HYDROmorphone TAB* 2 MG PO PRN (19:22)
[2018-12-23] MEDS: HYDROmorphone TAB* 2 MG PO PRN ×2 (04:41→19:35)
[2018-12-23] MEDS: CMCS:Midodrine (NF) 5 MG TAB PO SCH ×3 (04:41→19:35)
[2018-12-23 05:12] LABS: Albumin 2.1 g/dL (3.2-5.2); Albumin/Globulin Ratio 0.6 (1-3); BUN/Creatinine Ratio 11.1 (8-20); Calcium 8.3 mg/dL (8.6-10.3); EGFR African American 10.8 (>60); Globulin 3.3 g/dL (2-4); Potassium 3.4 mmol/L (3.5-5.0); Total Bilirubin 9.1 mg/dL (0.2-1.0); Total Protein 5.4 g/dL (6.4-8.9)
[2018-12-23] MEDS ORDERED: Potassium Chlor TAB* 20 MEQ TAB.ER PO ONE (09:12)
[2018-12-23 09:32] LABS: Magnesium 2.3 mg/dL (1.9-2.7)
[2018-12-23] MEDS: RiFAXimin* 550 MG TAB PO SCH ×2 (10:23→21:28)
[2018-12-23] MEDS: Metoprolol Succinate XL TAB* 25 MG PO SCH (10:23)
[2018-12-23] MEDS: Collagenase 250 MG/GM OINT* 30 GM TOPICAL SCH (10:24)
[2018-12-23] MEDS ORDERED: Phytonadione Oral Solution* 5 MG/25 ML UDC PO ONE ×2 (11:50→22:06)
[2018-12-23] MEDS: PROCHLORPERAZINE INJ 5 MG/ML 2 ML VIAL IV PRN (12:09)
[2018-12-23] MEDS ORDERED: Heparin DIALYSIS ONLY(*) 1,000 UNITS/ML VIAL DIALYSIS ONE (14:00)
--- NOTE | 2018-12-23 15:09 | PN ---
Progress Note - Progress Note Date of Service: 12/23/18 Note: WOUND CONSULT NOTE Date of Service: 12/23/2018 History: Interval History: Mr. 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 He left that hospital on 12 AMA. He injured his left leg about 2 weeks prior to admission. The left left became painful and swollen with drainage, so he presented to the emergency room on 12/15/18. He was admitted to the ICU for septic shock secondary to LE cellulitis, complicated by acute renal failure requiring hemodialysis. Mr. Lobato denies fever or chills. He states that he is feeling better than at the time of his admission, but is feeling down related to his diagnosis. Past Medical/Family/Social History: Family History: Unchanged from Admission Social History: Unchanged from Admission Past Medical History: Unchanged from Admission Objective: Active Medications: Albuterol (Ventolin 2.5 Mg/3 Ml Neb.Laurie*) 2.5 mg INH Q4H PRNReason: SOB/ WHEEZING Collagenase (Santyl 250 Mg/Gm Oint*) 1 applic TOPICAL DAILY [facility] Dextrose (Dextrose 50% Vial 50 Ml*) 50 ml IV ONCE PRNReason: hyperkalemia Hydromorphone HCl (Dilaudid Tab*) 2 mg PO Q6H PRN Reason: PAIN - MODERATE Lactulose (Lactulose*) 15 ml PO TID [facility] Metoprolol Succinate (Toprol Xl Tab*) 25 mg PO DAILY [facility] Midodrine (Midodrine (Nf)) 5 mg PO Q8H [facility] Prochlorperazine Edisylate (Compazine Inj*) 5 mg IV Q6H PRN Reason: NAUSEA/ VOMITING Rifaximin (Xifaxan*) 550 mg PO BID [facility] Vital Signs: 12/23/18 11:56 Temperature 97.3 F Temperature Oral Source Pulse Rate 75 Respiratory 18 Rate Blood Pressure 124/63 (mmHg) Blood Pressure 76 Mean O2 Sat by Pulse 96 Oximetry Patient on Room Yes Air Exam: General: NAD, laying in bed Neuro: Alert and Oriented to Person and Place. Skin: Left lateral heel - 0.5 cm x 0.6 cm x 0.1 cm. There is yellow slough in the wound base. Dry skin surrounding the wound. Left medial lower leg - Open wound 2.5 cm x 1.8 cm x 0.2 cm. Lower (more lateral ) wound - 1.8 cm x 1 cm x 0.2 cm. Both wounds with yellow eschar. Left anterior lower leg (below the knee) - 5 cm x 3 cm x 0.2 cm. Wound base with yellow an black slough. Two smaller open areas measuring 0.5 cm x 0.8 cm and 0.1 cm & 0.7 cm x 0.8 cm x 0.1 cm. Both smaller wounds also with yellow eschar in the wound bases. Surrounding skin with muild erythema. Right lateral lower leg - Open wound 2.5 cm x 3 cm x 0.1 cm. Wound bed with yellow and black slough. There is mild serous drainage noted. Right posterior lower leg - Open wound measuring 1.5 cm x 1.3 cm x 0.1 cm. The wound base with yellow eschar. There is serous drainage noted from the leg. Buttocks - With moisture associated skin breakdown. Also suspect a component of sheering injury. The skin on the left buttock was removed with the Optifoam dressing. Left buttock wound with 100% granulation tissue in the wound base. Right buttock with cluster of small superficial open area measuring 4 cm x 0.5 cm. Left buttock with open area measuring 4.5 cm x 4.5 cm x 0.1 cm. Data: Labs: 12/22/18 12/23/18 04:40 04:45 WBC 17.4 H Hgb 10.2 L Hct 31 L Plt Count 80 L D Sodium 128 L Potassium 3.4 L Chloride 97 L Carbon Dioxide 19 L BUN 71 H Creatinine 6.41 H Glucose 85 Total Protein 5.4 L Albumin 2.1 L Albumin/Globulin Ratio 0.6 L Assessment/Plan: Mr. 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 He left that hospital on 11/09 AMA. He injured his left leg about 2 weeks prior to admission. The left left became painful and swollen with drainage, so he presented to the emergency room on 12/15/18. He was admitted to the ICU for septic shock secondary to LE cellulitis, complicated by acute renal failure requiring hemodialysis. 1. Bilateral LEs with multiple ulcerations, unstageable. BIlateral LE ulcerations with yellow slough and serous drainage. Suggest continuing Santyl daily to areas of yellow slough. Serous drainage has mostly resolved, would recommend dry dressings to the legs with rolled gauze. If the skin starts to appear macerated, recommend discontinuing the dressings and placing absorptive pads under legs. 2. Moisture associated skin injury to buttocks, secondary to diarrhea. Recommend discontinuing the use of Opifoam. Would place barrier cream to buttocks. Ensure frequent incontinence care is provided as needed. Frequent turning and repositioning. VTE PPX: Not currently on chemical DVT prophylaxis in the setting of thrombocytopenia. Diet: Renal diet Code Status: Full code Status Disposition: Disposition per the Primary Medicine Team Time Spent: A total of 20 minutes was spend removing dressings, measuring and photographing wounds. Attending: Dr. Emmie Holliday MD
--- NOTE | 2018-12-23 16:23 | PN ---
Subjective Date of Service: 12/23/18 Interval History: HOSPITALIST PROGRESS NOTE Patient seen and examined at bedside. Care reviewed and d/w Dirk Carrillo RN. He feels "so so" today. Had nausea after taking his pills this AM. Tolerating diet. Family History: Unchanged from Admission Social History: Unchanged from Admission Past Medical History: Unchanged from Admission Objective Active Medications: Albuterol (Ventolin 2.5 Mg/3 Ml Neb.Laurie*) 2.5 mg INH Q4H PRN PRN Reason: SOB/WHEEZING Collagenase (Santyl 250 Mg/Gm Oint*) 1 applic TOPICAL DAILY [facility] Last Admin: 12/23/18 10:24 Dose: 1 applic Dextrose (Dextrose 50% Vial 50 Ml*) 50 ml IV ONCE PRN PRN Reason: hyperkalemia Last Admin: 12/15/18 17:39 Dose: 50 ml Hydromorphone HCl (Dilaudid Tab*) 2 mg PO Q6H PRN PRN Reason: PAIN - MODERATE Last Admin: 12/23/18 04:41 Dose: 2 mg Lactulose (Lactulose*) 15 ml PO TID [facility] Last Admin: 12/23/18 13:49 Dose: 15 ml Metoprolol Succinate (Toprol Xl Tab*) 25 mg PO DAILY [facility] Last Admin: 12/23/18 10:23 Dose: 25 mg Midodrine (Midodrine (Nf)) 5 mg PO Q8H [facility]; Protocol Last Admin: 12/23/18 10:24 Dose: 5 mg Prochlorperazine Edisylate (Compazine Inj*) 5 mg IV Q6H PRN PRN Reason: NAUSEA/VOMITING Last Admin: 12/23/18 12:09 Dose: 5 mg Rifaximin (Xifaxan*) 550 mg PO BID [facility] Last Admin: 12/23/18 10:23 Dose: 550 mg Vital Signs - 8 hr 12/23/18 12/23/18 11:56 16:16 Temperature 97.3 F Pulse Rate 75 103 Respiratory 18 Rate Blood Pressure 124/63 98/64 (mmHg) O2 Sat by Pulse 96 Oximetry Oxygen Devices in Use Now: None Appearance: Obese gentleman lying in bed in NAD. 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 - Patient Problems (1) SIRS (systemic inflammatory response syndrome) Comment: - Meets sepsis criteria with leukocytosis and tachycardia, but no clear source of infection. Remains afebrile, denies CP, dyspnea or other complaints. - States his legs look much better than before. - Awaiting repeat UA. - Continue to monitor closely for signs of recurrent infection. (2) Sinus tachycardia Comment: - See above. - No hypoxia, CP, or dyspnea. - Continue Metoprolol. (3) V-tach Comment: - 13 beats of Vtach earlier today - asymptomatic, in the setting of hypokalemia - will replete. - Will repeat echo - he had normal EF in October, but with his complicated septic shock picture and persistent tachycardia, could have developed cardiomyopathy. - Continue Metoprolol. (4) MELISSA (acute kidney injury) Comment: - Likely with component of ATN. - D/w Nephrology - recommended continuation of dyalisis for now; may take a couple weeks to see improvement of renal function (if it improves). - Will need tunneled HD catheter - plan for placement by IR tomorrow. - Will give vitamin K today to correct his INR and order platelets for tomorrow prior to procedure. (5) Septic shock Comment: - Shock is resolved. - Tachycardia, leukocytosis, lactic acidosis on admission; required pressors. - Source was LE cellulitis. (6) Cellulitis and abscess of leg Comment: - Completed 7 days of Zosyn. - Continue Santyl to LE wounds. (7) Cirrhosis due to hemochromatosis Comment: - Case d/w Chelly Littlejohn RN (ambulatory care coordinator) on 12/21/18 who also contacted [employer] (Dr Rice) - patient was very non compliant with their recommendations while admitted and left AMA. They don't think he would qualify for transplant/transfer at this time. Their recommendation at this time is for the patient to see them in follow up as outpatient after discharge. If he decompensates while in the hospital, they would recommend transfer to Medical service with Transplant consultation. (8) Thrombocytopenia Comment: - Secondary to hyperesplenism - trending up. (9) Physical deconditioning Comment: - PT/OT - will need QUINTEN. (10) DVT prophylaxis Comment: - Pharmacological prophylaxis contraindicated in the setting of thrombocytopenia and SCDs contraindicated due to LE wounds. (11) Full code status Status and Disposition: Inpatient.
[2018-12-23 17:01] LABS: ABS Basophils 0.1 10^3/ul (0-0.2); ABS Eosinophils 0.1 10^3/ul (0-0.6); ABS Lymphocytes 1.4 10^3/ul (1.0-4.8); ABS Monocytes 1.7 10^3/ul (0-0.8); ABS Neutrophils 11.9 10^3/ul (1.5-7.7); ABS Nucleated RBC 0 10^3/ul; Eosinophil % 0.6 %; Hematocrit 31 % (42-52); Hemoglobin 10.4 g/dl (14.0-18.0); Lymphocyte % 9.1 %; Mean Corpuscular HGB Conc 34 g/dl (31-36); Mean Corpuscular Hemoglobin 31 pg (27-31); Mean Corpuscular Volume 92 fL (80-94); Nucleated Red Blood Cells % 0; Platelet Count 80 10^3/ul (150-450); Red Blood Count 3.34 10^6/ul (4.00-5.40); Red Cell Distribution Width 18 % (10.5-15); White Blood Count 15.2 10^3/ul (3.5-10.8)
[2018-12-23 17:08] LABS: INR 2.07 (0.77-1.02)
--- NOTE | 2018-12-24 03:57 | PN ---
PROGRESS NOTE: DATE OF SERVICE: 12/23/18 SUBJECTIVE: The patient reports that he feels slightly better. Still noted to be significantly jaundiced with anasarca; however, the patient reports that he is able to walk more. Counseled the patient on the importance of being compliant with the transplant center recommendations. Vitals and labs have been reviewed. Labs noted on the computer with respect to his kidney function dates back to 10/24/18, when his BUN was noted to be 10, creatinine was noted to be 0.84, and the estimated GFR was noted to be 93. The patient at that time as already noted to have AST, ALT elevation with a bilirubin of 23. Labs today showing sodium of 128, potassium of 3.4, chloride 97, CO2 19, BUN noted to be 71 , creatinine noted to be 6.41, bilirubin noted to be 9.1, AST 69, ALT 32, alk phos noted to be 115. Ammonia noted to be 56. INR noted to be 2.07. PHYSICAL EXAM: HEENT noted to have scleral icterus. Lungs: Decreased breath sounds bilaterally. Abdomen noted to be distended with some ascites. No rebound, no guarding. Extremities noted to have 2+ edema. Neuro: Alert, oriented. 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 1. 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 The patient was being evaluated at the transplant center in [place] when he was noted to be noncompliant with their recommendations and signed out AMA. There was initial plan to transfer the patient to [place], but per discussion with Dr. Treadwell, they are not sure how complaint he will be post transplant, but recommend transfer if the patient' s condition decompensates under the medical team with a transplant consultation. 2. Acute kidney injury, thought to be secondary to acute tubular necrosis in the setting sepsis. Also possible contribution of hepatorenal syndrome. In review of the patient's prior labs on the computer, the patient's kidney function was noted to be within normal limits in October 2018. In light of this, if he qualifies for simultaneous liver and kidney transplantation, it would have to be through the sustained MELISSA pathway and we would have to check the patient's progress through the weeks on deciding further allocation. If the patient continues to be on dialysis for 6 weeks or more, he would likely qualify for simultaneous liver and kidney transplantation when this becomes the case. The patient would otherwise need to have documented GFR, less than or equal to 25 mL/minute for at least 6 consecutive weeks documented every 7 days. The patient is a nonalcoholic and has not had any alcohol for over 30 years. 3. The renal failure and dialysis also increases MELD score and the patient noted to have an elevated INR. Recommend transferring the patient to [place] [facility] with any noted decompensation for further transplant evaluation. Also, counseled the patient on the importance of following the transplant center's recommendations, as this would also determine his chances at getting liver and possibly if needed simultaneous kidney transplant. 4. To understand the etiology of his renal failure better, recommend checking kidney ultrasound to evaluate kidney size. To evaluate for any chronicity of renal failure, also recommend getting 24-hour urine collection for protein as this would also show that the patient has a chronic component. Otherwise, can get a spot urine, protein, and urine creatinine for quick assessment and urine microalbumin for evaluation of proteinuria. Also, recommend getting urine sodium, creatinine, and urea with simultaneous BMP. 5. The patient has not showed any signs of renal recovery. Discussed with Dr. Treadwell and recommend requesting Interventional Radiology to place a tunneled dialysis catheter when able in place of the temporary dialysis catheter that he has. We will plan further dialysis treatment when the patient is in the hospital on Friday, Friday, Friday. Also, recommend the case worker to put in formal dialysis request to our [facility] to secure a spot for outpatient dialysis in the interim when transplant evaluation is in progress. [id number]/[facility] #: [id number] LEIGHA
[2018-12-24] MEDS: CMCS:Midodrine (NF) 5 MG TAB PO SCH ×3 (04:09→20:27)
[2018-12-24] MEDS: HYDROmorphone TAB* 2 MG PO PRN ×3 (04:09→23:35)
[2018-12-24] MEDS: PROCHLORPERAZINE INJ 5 MG/ML 2 ML VIAL IV PRN ×3 (04:10→23:43)
[2018-12-24 04:25] LABS: ABS Basophils 0.1 10^3/ul (0-0.2); ABS Eosinophils 0.2 10^3/ul (0-0.6); ABS Lymphocytes 1.6 10^3/ul (1.0-4.8); ABS Monocytes 1.7 10^3/ul (0-0.8); ABS Neutrophils 9.4 10^3/ul (1.5-7.7); ABS Nucleated RBC 0 10^3/ul; Eosinophil % 1.4 %; Hematocrit 28 % (42-52); Hemoglobin 9.5 g/dl (14.0-18.0); Lymphocyte % 12.3 %; Mean Corpuscular HGB Conc 34 g/dl (31-36); Mean Corpuscular Hemoglobin 32 pg (27-31); Mean Corpuscular Volume 92 fL (80-94); Nucleated Red Blood Cells % 0.1; Platelet Count 91 10^3/ul (150-450); Red Blood Count 3.01 10^6/ul (4.00-5.40); Red Cell Distribution Width 17 % (10.5-15); White Blood Count 13.1 10^3/ul (3.5-10.8)
[2018-12-24 04:46] LABS: Calcium 7.8 mg/dL (8.6-10.3); Potassium 3.4 mmol/L (3.5-5.0); Total Bilirubin 8.7 mg/dL (0.2-1.0)
[2018-12-24 04:52] LABS: Albumin/Globulin Ratio 0.6 (1-3); BUN/Creatinine Ratio 9.7 (8-20); EGFR African American 13.3 (>60); Globulin 3.2 g/dL (2-4); Total Protein 5.2 g/dL (6.4-8.9)
[2018-12-24] MEDS: RiFAXimin* 550 MG TAB PO SCH ×2 (09:39→20:27)
[2018-12-24] MEDS ORDERED: Midazolam* 1 MG/ML 2 ML VIAL (2 MG) ONE (10:49)
[2018-12-24] MEDS ORDERED: fentaNYL* 50 MCG/ML 2 ML VIAL (100 MCG VIAL) ONE (10:50)
[2018-12-24] MEDS ORDERED: ceFAZolin 1 GM* X ONE DOSE (AddVan) IVPB ×2 (11:00)
[2018-12-24] MEDS: Metoprolol Succinate XL TAB* 25 MG PO SCH (11:35)
--- NOTE | 2018-12-24 14:45 | PN ---
Subjective Date of Service: 12/24/18 Interval History: HOSPITALIST PROGRESS NOTE Patient seen and examined at bedside. Care reviewed and d/w Dirk Carrillo RN. He offers no new complaints. RN had described patient as more lethargic, but to me he seems to be the same. Pain is controlled, tolerating diet, nausea is controlled. Denies CP, palpitations, dyspnea. Family History: Unchanged from Admission Social History: Unchanged from Admission Past Medical History: Unchanged from Admission Objective Active Medications: Albuterol (Ventolin 2.5 Mg/3 Ml Neb.Laurie*) 2.5 mg INH Q4H PRN PRN Reason: SOB/WHEEZING Collagenase (Santyl 250 Mg/Gm Oint*) 1 applic TOPICAL DAILY JERRY Last Admin: 12/23/18 10:24 Dose: 1 applic Dextrose (Dextrose 50% Vial 50 Ml*) 50 ml IV ONCE PRN PRN Reason: hyperkalemia Last Admin: 12/15/18 17:39 Dose: 50 ml Hydromorphone HCl (Dilaudid Tab*) 2 mg PO Q6H PRN PRN Reason: PAIN - MODERATE Last Admin: 12/24/18 04:09 Dose: 2 mg Lactulose (Lactulose*) 15 ml PO TID JERRY Last Admin: 12/24/18 09:41 Dose: 15 ml Metoprolol Succinate (Toprol Xl Tab*) 12.5 mg PO DAILY [facility] Midodrine (Midodrine (Nf)) 5 mg PO Q8H JERRY; Protocol Last Admin: 12/24/18 04:09 Dose: 5 mg Prochlorperazine Edisylate (Compazine Inj*) 5 mg IV Q6H PRN PRN Reason: NAUSEA/VOMITING Last Admin: 12/24/18 04:10 Dose: 5 mg Rifaximin (Xifaxan*) 550 mg PO BID JERRY Last Admin: 12/24/18 09:39 Dose: 550 mg Vital Signs - 8 hr 12/24/18 07:39 Temperature 97.9 F Pulse Rate 66 Respiratory 16 Rate Blood Pressure 98/53 (mmHg) O2 Sat by Pulse 95 Oximetry Oxygen Devices in Use Now: None Appearance: Obese gentleman lying in bed in NAD. Eyes: - - + jaundice Ears/Nose/Mouth/Throat: Mucous Membranes Moist Neck: Trachea Midline Respiratory: Symmetrical Chest Expansion and Respiratory Effort, Clear to Auscultation Cardiovascular: RRR - Normal S1 and S2 Abdominal: NL Sounds; No Tenderness; No Distention Extremities: - - Bilateral LE edema with weeping, mild erythema. 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 - Patient Problems (1) Septic shock Comment: - Shock is resolved. - Tachycardia, leukocytosis, lactic acidosis on admission; required pressors. - Source was LE cellulitis. (2) V-tach Comment: - 13 beats of Vtach 12/23 - asymptomatic, in the setting of hypokalemia - resolved. - Awaiting repeat echo - he had normal EF in October, but with his complicated septic shock picture and persistent tachycardia, could have developed cardiomyopathy. - Continue low dose Metoprolol. (3) MELISSA (acute kidney injury) Comment: - Likely with component of ATN. - D/w Nephrology - recommended continuation of dyalisis for now; may take a couple weeks to see improvement of renal function (if it improves). - For tunneled HD catheter placement by IR today. (4) Cellulitis and abscess of leg Comment: - Completed 7 days of Zosyn. - Continue Santyl to LE wounds. (5) Cirrhosis due to hemochromatosis Comment: - Case d/w Chelly Littlejohn RN (residential coordinator) on 12/21/18 who also contacted [employer] (Dr Rice) - patient was very non compliant with their recommendations while admitted and left AMA. They don't think he would qualify for transplant/transfer at this time. Their recommendation at this time is for the patient to see them in follow up as outpatient after discharge. If he decompensates while in the hospital, they would recommend transfer to Medical service with Transplant consultation. (6) Thrombocytopenia Comment: - Secondary to hyperesplenism - trending up. (7) Physical deconditioning Comment: - PT/OT - will need QUINTEN. (8) DVT prophylaxis Comment: - Pharmacological prophylaxis contraindicated in the setting of thrombocytopenia and SCDs contraindicated due to LE wounds. - If platelets continue to trend up, will resume heparin. (9) Full code status Status and Disposition: Inpatient.
--- NOTE | 2018-12-24 16:31 | ECHO ---
Patient: LEE SPENCER [facility] Rec#: [id number] : 1960 Date: 12/24/2018 Age: 58y Height: 191 cm / 75.2 in Weight: 135.9 kg / 299.5 lbs Sex: M BSA: 2.61 Room#: [facility] Admit Date#: 12/15/2018 Type: Inpatient Referring: Andressa Cruz MD Reading: Jayesh Vega DO Library Sales Consultant: Maria Dolores Galaviz RDCS CC: Meme Marquez MD Transthoracic Echocardiogram Indication: Abnormal EKG BP: 99/55 HR: 68 Rhythm: NSR Findings History: Stage IV cirrhosis, hemochromatosis, HTN, ETOH abuse in the past. Technical Comments: The study is technically limited due to poor acoustic windows. Completed at 1610. Left Ventricle: The left ventricular chamber size is normal. Mild concentric left ventricular hypertrophy is observed. The left ventricle appears hyperdynamic. The estimated ejection fraction is greater than 65%. Abnormal left ventricular diastolic function is observed. Left Atrium: The left atrium is moderately dilated. Right Ventricle: The right ventricle is mild to moderately dilated. The right ventricular global systolic function is normal. Right Atrium: The right atrium is moderately dilated. Aortic Valve: The aortic valve is trileaflet. The aortic valve leaflets are mildly thickened. There is trace to mild aortic regurgitation. There is no evidence of aortic stenosis. Mitral Valve: Mild mitral annular calcification present. The mitral valve leaflets are mildly thickened. There is mild mitral regurgitation. There is no evidence of mitral stenosis. Tricuspid Valve: The tricuspid valve leaflets are normal. There is trace to mild tricuspid regurgitation. Unable to estimate the right ventricular systolic pressure. There is no tricuspid stenosis. Pulmonic Valve: The pulmonic valve structure is not well visualized. There is a trace pulmonic regurgitation. There is no pulmonic stenosis. Pericardium: There is no significant pericardial effusion. A pericardial fat pad is visualized. Aorta: There is mild dilatation of the ascending aorta. There is no dilatation of the aortic arch. There is mild dilatation of the aortic root. Pulmonary Artery: The main pulmonary artery is not well visualized. Venous: The inferior vena cava is dilated. There is a greater than 50% respiratory change in the inferior vena cava dimension. Conclusions The left ventricular chamber size is normal. Mild concentric left ventricular hypertrophy is observed. The left ventricle appears hyperdynamic. The estimated ejection fraction is greater than 70%. The left atrium is moderately dilated. The right ventricle is mild to moderately dilated. The right ventricular global systolic function is normal. No significant valvular abnormalities noted Unable to estimate the right ventricular systolic pressure. Compared to prior study from 10/2018, no clinically significant changes noted Measurements Name Value Normal Range RVIDd (AP) 2D 3.8 cm (0.9 - 2.6) RVDdMajor (2D) 5 cm (2.2 - 4.4) RAd ISD 4CH 5.8 cm (3.4 - 4.9) RA (A4C)W 5.5 cm (2.9 - 4.6) IVSd (2D) 1.2 cm (0.6 - 1) LVPWd (2D) 1.2 cm (0.6 - 1) LVIDd (2D) 4.7 cm (3.6 - 5.4) LVIDs (2D) 3.2 cm - LV FS (2D) 32 % (25 - 45) Aortic Annulus 2.5 cm (1.4 - 2.6) Ao root diameter (2D) 4 cm (2.1 - 3.5) Ascending Ao 3.8 cm (2.1 - 3.4) Aortic arch 2.5 cm (1.8 - 3.4) LA dimension (AP) 2D 4.6 cm (2.3 - 3.8) LAd ISD 4CH 6 cm (2.9 - 5.3) LA ISD 4CH W 5.9 cm (2.5 - 4.5) Name Value Normal Range LA ESV BP (A/L) index 50 ml/m2 - Name Value Normal Range MV E-wave Vmax 0.8 m/sec - MV deceleration time 282 msec - MV A-wave Vmax 1.1 m/sec - MV E:A ratio 0.7 ratio - LV septal e' Vmax 0.07 m/sec - LV lateral e' Vmax 0.1 m/sec - LV E:e' septal ratio 11.4 ratio - LV E:e' lateral ratio 8 ratio - Name Value Normal Range AV Vmax 1.5 m/sec - AV VTI 33 cm - AV peak gradient 9 mmHg - AV mean gradient 5 mmHg - LVOT Vmax 1.2 m/sec - LVOT VTI 25 cm - LVOT peak gradient 5 mmHg - LVOT mean gradient 3 mmHg - TRAV Vmax 1.2 m/sec - Name Value Normal Range IVC diameter 2.2 cm - Name Value Normal Range PV Vmax 0.9 m/sec - PV peak gradient 3 mmHg -
[2018-12-24] MEDS: Collagenase 250 MG/GM OINT* 30 GM TOPICAL SCH (17:44)
[2018-12-25] MEDS: Albumin Human 25%* 25 GM/100 ML BTL IV SCH ×2 (01:16→02:35)
[2018-12-25] MEDS: CMCS:Midodrine (NF) 5 MG TAB PO SCH ×2 (03:38→14:16)
[2018-12-25 05:52] LABS: ABS Basophils 0.1 10^3/ul (0-0.2); ABS Eosinophils 0.1 10^3/ul (0-0.6); ABS Lymphocytes 0.9 10^3/ul (1.0-4.8); ABS Monocytes 0.9 10^3/ul (0-0.8); ABS Neutrophils 5.6 10^3/ul (1.5-7.7); ABS Nucleated RBC 0 10^3/ul; Hematocrit 24 % (42-52); Hemoglobin 8.1 g/dl (14.0-18.0); Lymphocyte % 11.5 %; Mean Corpuscular HGB Conc 34 g/dl (31-36); Mean Corpuscular Hemoglobin 31 pg (27-31); Mean Corpuscular Volume 93 fL (80-94); Mean Platelet Volume 7.9 fL (7.4-10.4); Nucleated Red Blood Cells % 0.1; Platelet Count 49 10^3/ul (150-450); Red Blood Count 2.57 10^6/ul (4.00-5.40); Red Cell Distribution Width 18 % (10.5-15); White Blood Count 7.5 10^3/ul (3.5-10.8)
[2018-12-25 06:11] LABS: Albumin 2.4 g/dL (3.2-5.2); Albumin/Globulin Ratio 0.9 (1-3); BUN/Creatinine Ratio 10.3 (8-20); Calcium 8.2 mg/dL (8.6-10.3); EGFR African American 10.7 (>60); EGFR Non-African American 8.8 (>60); Globulin 2.8 g/dL (2-4); Potassium 3.4 mmol/L (3.5-5.0); Total Bilirubin 8.4 mg/dL (0.2-1.0); Total Protein 5.2 g/dL (6.4-8.9)
[2018-12-25] MEDS ORDERED: Metoprolol Succinate XL TAB* 25 MG PO SCH (09:00)
[2018-12-25] MEDS: RiFAXimin* 550 MG TAB PO SCH (10:30)
[2018-12-25] MEDS: HYDROmorphone TAB* 2 MG PO PRN ×2 (10:41→18:00)
[2018-12-25] MEDS: PROCHLORPERAZINE INJ 5 MG/ML 2 ML VIAL IV PRN (10:42)
[2018-12-25] MEDS: Collagenase 250 MG/GM OINT* 30 GM TOPICAL SCH (12:38)
--- NOTE | 2018-12-25 13:46 | PN ---
Subjective Date of Service: 12/25/18 Interval History: HOSPITALIST PROGRESS NOTE Patient seen and examined at bedside. Care reviewed and d/w Raul Hill RN. He offers no new complaints today. New HD catheter area is a little sore. Nausea is improved. Family History: Unchanged from Admission Social History: Unchanged from Admission Past Medical History: Unchanged from Admission Objective Active Medications: Albuterol (Ventolin 2.5 Mg/3 Ml Neb.Laurie*) 2.5 mg INH Q4H PRN PRN Reason: SOB/WHEEZING Collagenase (Santyl 250 Mg/Gm Oint*) 1 applic TOPICAL DAILY [facility] Last Admin: 12/25/18 12:38 Dose: 1 applic Dextrose (Dextrose 50% Vial 50 Ml*) 50 ml IV ONCE PRN PRN Reason: hyperkalemia Last Admin: 12/15/18 17:39 Dose: 50 ml Hydromorphone HCl (Dilaudid Tab*) 2 mg PO Q6H PRN PRN Reason: PAIN - MODERATE Last Admin: 12/25/18 10:41 Dose: 2 mg Lactulose (Lactulose*) 15 ml PO TID [facility] Last Admin: 12/25/18 10:30 Dose: 15 ml Metoprolol Succinate (Toprol Xl Tab*) 12.5 mg PO DAILY [facility] Last Admin: 12/25/18 10:30 Dose: 12.5 mg Midodrine (Midodrine (Nf)) 5 mg PO Q8H [facility]; Protocol Last Admin: 12/25/18 03:38 Dose: 5 mg Prochlorperazine Edisylate (Compazine Inj*) 5 mg IV Q6H PRN PRN Reason: NAUSEA/VOMITING Last Admin: 12/25/18 10:42 Dose: 5 mg Rifaximin (Xifaxan*) 550 mg PO BID [facility] Last Admin: 12/25/18 10:30 Dose: 550 mg Vital Signs - 8 hr 12/25/18 12/25/18 12/25/18 07:32 10:30 10:41 Temperature 97.4 F Pulse Rate 78 Respiratory 16 16 16 Rate Blood Pressure 99/54 (mmHg) O2 Sat by Pulse 98 Oximetry 12/25/18 11:06 Temperature 97.3 F Pulse Rate 107 Respiratory 16 Rate Blood Pressure 102/62 (mmHg) O2 Sat by Pulse 99 Oximetry Oxygen Devices in Use Now: None Appearance: Obese gentleman sitting up in bed in NAD. 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 - Patient Problems (1) Septic shock Comment: - Shock is resolved. - Tachycardia, leukocytosis, lactic acidosis on admission; required pressors. - Source was LE cellulitis. (2) V-tach Comment: - 13 beats of Vtach 12/23 - asymptomatic, in the setting of hypokalemia - resolved. - Repeat echo reviewed, not significantly changed from October. - Continue low dose Metoprolol. (3) MELISSA (acute kidney injury) Comment: - Likely with component of ATN. - D/w Nephrology - recommended continuation of dyalisis for now; may take a couple weeks to see improvement of renal function (if it improves). - S/p tunneled HD catheter placement by IR 12/24/18. (4) Cellulitis and abscess of leg Comment: - Completed 7 days of Zosyn. - Continue Santyl to LE wounds. (5) Cirrhosis due to hemochromatosis Comment: - Case d/w Chelly Littlejohn RN (lookback coordinator) on 12/21/18 who also contacted [facility] [facility] (Dr Rice) - patient was very non compliant with their recommendations while admitted and left AMA. They don't think he would qualify for transplant/transfer at this time. Their recommendation at this time is for the patient to see them in follow up as outpatient after discharge. If he decompensates while in the hospital, they would recommend transfer to Medical service with Transplant consultation. (6) Thrombocytopenia Comment: - Secondary to hyperesplenism - platelets are down today, but there's no sign of bleeding. (7) Physical deconditioning Comment: - PT/OT - will need QUINTEN. (8) DVT prophylaxis Comment: - Pharmacological prophylaxis contraindicated in the setting of thrombocytopenia and SCDs contraindicated due to LE wounds. - If platelets continue to trend up, will resume heparin. (9) Full code status Status and Disposition: Inpatient. Awaiting HD chair - plan to discharge to [facility] for QUINETN when chair available.
[2018-12-25] MEDS ORDERED: Potassium Chlor TAB* 20 MEQ TAB.ER PO ONE (14:51)
[2018-12-25] MEDS ORDERED: EPOETIN ALFA-EPBX * 10,000 UNIT/ML VIAL IV ONE (16:00)
[2018-12-25] MEDS ORDERED: Heparin DIALYSIS ONLY(*) 1,000 UNITS/ML VIAL DIALYSIS ONE (16:00)
[2018-12-25] MEDS ORDERED: NS 0.9% 250 ML* 250 ML IV ONE (19:57)
[2018-12-25 21:09] LABS: Hematocrit 21 % (42-52); Hemoglobin 7.1 g/dl (14.0-18.0)
--- NOTE | 2018-12-25 21:25 | PN ---
Hospitalist Progress Note Date of Service: 12/25/18 Nursing notified provider of low HH (7.1/) which is decreased from previous. He is hypotensive and tachycardic (previously had dialysis today). He has received a bolus and plan to transfuse 1 unit PRBC. POC discussed with shearer screen measurer and trimmer, Mary Calixto DO.
--- NOTE | 2018-12-25 22:20 | PN ---
Progress Note - Progress Note Date of Service: 12/25/18 Note: CAT call - large amount of dark/maroon blood from rectum. Vitals: Stable. Will order a total of 2 units of PRBCs, transfer to ICU. Do not have GI coverage over the next 2 days. Will attempt transfer.
[2018-12-25] MEDS ORDERED: Norepinephrine 16MCG/ML IVPRE* 4,000 MCG/250 ML BAG IV SCH (23:45)
--- NOTE | 2018-12-26 01:28 | TRS ---
CC: Meme Marquez MD TRANSFER SUMMARY: DATE OF ADMISSION: 12/15/18 DATE OF TRANSFER TO [facility]: 12/26/18 PRIMARY CARE PHYSICIAN: Meme Marquez MD. REASON FOR TRANSFER: The patient now with new GI bleed, requiring GI service that we do not have david ilable for the next 3 days. HOSPITAL COURSE: This is a 58-year-old male who presented to the emergency room with increase in con fusion. He has a past medical history of stage IV cirrhosis secondary to hemochromatosis. The patie nt was admitted to the ICU for severe sepsis secondary to bilateral lower extremity cellulitis. He w as also found to have significant acute kidney injury with hyperkalemia, metabolic acidosis, and deli rium thought to be from his sepsis and encephalopathy from his renal failure. On admission, his creat inine was 7.8 with a potassium of 6.5. His H and H on admission was 9.3/28. The patient was seen by consultation by Nephrology, who recommended dialysis as his renal function was not improving. The p atient was started on broad-spectrum antibiotics for his lower extremity cellulitis. He had a port p laced for his dialysis. Initially on admission, he was started on pressors, which he weaned off afte r a few days. During his hospitalization, he did not have any abdominal complaints. No diarrhea, na usea, vomiting. He was resumed on his lactulose and rifaximin regimen. The patient completed a tota l of 7 days of Zosyn for his lower extremity cellulitis and he has remained on Santyl for his lower e xtremity wounds. His sepsis resolved. He had a tunnel catheter placed on 12/24 by IR. Dialysis was initiated until his renal function improved. 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 Rice, stating he was very noncomp liant with the recommendations while admitted and left AMA. They do not think he would qualify for t ransplant transfer at that time. Their recommendation at this time is for the patient to see them in followup as outpatient after discharge. On the day of this evening, on 12/25/18, the patient was ge tting hemodialysis and he became hypotensive in the 70s. He returned from dialysis. He still remain ed hypotensive. He got a small 250 cc bolus and a repeat of his H and H that dropped to 7.1/21. Eac h day his H and H has been slowly trending down. No evidence of bloody stools or black stools per pr ior reports. 1 unit of blood was ordered. Prior to the blood arriving, the patient had a rather lar ge significant amount of dark maroon-colored blood and was hypotensive at that time. A catcall was shaq easton. The patient was sent to the ICU. He was given another fluid bolus while waiting for the bloo d and another unit of blood for a total of 2 units was ordered. The patient remained hypotensive. H e was started on Levophed at 10 mcg/kg/min. Due to the fact that we do not have GI Service, we opted to call the transfer center for transfer for GI evaluation. The patient denies any abdominal pain. He is alert and oriented and mentating. His most recent set of labs was from 2100 on 12/25/18. Hem oglobin was 7.1, hematocrit of 21. An INR from 12/24/18 of 2. Sodium 129, potassium 3.4, chloride 9 6, bicarb is 22, BUN 67, creatinine 6.51, glucose 69. The patient is agreeable to being transferred to [facility]. I spoke with Dr. Mclaughlin, who accepted the patient for transport to [facility] ICU. Please refer to the entire complete medical records for more detailed thorough history of emeli ent's hospitalization. PATIENT TIME: Greater than 30 minutes spent doing the discharge summary, more than half the time spe nt in direct patient contact. [id number]/[facility] #: [id number]
--- NOTE | 2018-12-26 01:44 | DS ---
TRANSFER SUMMARY: DATE OF ADMISSION: DATE OF TRANSFER: ADDENDUM: The patient's medication list inpatient are as follows: 1. Albuterol 2.5 mg every 4 hours as needed. 2. Santyl apply to lower extremities daily. 3. Dilaudid 2 mg p.o. q.6 hours as needed. 4. Lactulose 15 mL p.o. t.i.d. 5. Metoprolol succinate 12.5 mg p.o. daily. 6. Midodrine 5 mg p.o. q.8 hours. 7. Levophed 10 mcg per kilo per minute. 8. Compazine 5 mg IV q.6 hours as needed. 9. Rifaximin 550 mg p.o. b.i.d. His home medications prior to admission: 1. Zofran 8 mg every 8 hours as needed. 2. Spironolactone 50 mg p.o. daily. 3. Rifaximin 550 mg p.o. daily. 4. Lactulose 30 mL p.o. b.i.d. 5. Dilaudid 2 to 4 mg every 6 to 8 hours as needed. 6. Metoprolol succinate 12.5 mg p.o. daily. 7. Lasix 20 mg p.o. daily. [id number]/[facility] #: [id number] [facility]
--- NOTE | 2018-12-26 01:48 | PN ---
Progress Note - Progress Note Date of Service: 12/26/18 Note: I did speak with [facility] (per Allen's note, [facility] would consider transplant evaluation if he were to deteriorate) - [facility] does not have any ICU beds and they have 6 ED ICU holds that would take priority over this patient. Due to patient needing emergent GI consultation, will transfer to [facility]. Recommend [facility] touch base with [facility] regarding his condition and determine if he should be transported there if appropriate.
[2018-12-26] MEDS ORDERED: HYDROmorphone INJ* 0.5 MG/0.5 ML SYRINGE IV SLOW PU ONE (03:35)
[2018-12-26] MEDS ORDERED: HYDROmorphone INJ1* 1 MG/ML SYRINGE ONE (03:37)
[2018-12-26] MEDS: PROCHLORPERAZINE INJ 5 MG/ML 2 ML VIAL IV PRN (03:39)
[2018-12-26 07:43] VITALS: BP 74/42
[2018-12-26] MEDS ORDERED: DAPTOMYCIN IVPB ONE ×2 (09:00)
== END 2018-12-26 03:45 | disposition short-term general hospital (02) | DRG 871 ==
LOC: ED 13:33 → ICU 17:36 → MED 12-20 10:38 → ICU 12-25 23:17
PROVIDERS: ADMIT Internal Medicine Critical Care Medicine; ATTEND Pediatrics
PROC: 3E033XZ Introduction of Vasopressor into Peripheral Vein, Percutaneous Approach (ICD-10-PCS; 2018-12-15)
PROC: 05HM33Z Insertion of Infusion Device into Right Internal Jugular Vein, Percutaneous Approach (ICD-10-PCS; principal; 2018-12-16)
PROC: 5A1D70Z Performance of Urinary Filtration, Intermittent, Less than 6 Hours Per Day (ICD-10-PCS; 2018-12-26)
PROC: 30233N1 Transfusion of Nonautologous Red Blood Cells into Peripheral Vein, Percutaneous Approach (ICD-10-PCS; 2018-12-26)
DX: A41.9 Sepsis, unspecified organism (principal); R65.21 Severe sepsis with septic shock; G93.41 Metabolic encephalopathy; N17.9 Acute kidney failure, unspecified; E87.2 Acidosis; I47.2 Ventricular tachycardia; L03.116 Cellulitis of left lower limb; L02.416 Cutaneous abscess of left lower limb; E87.1 Hypo-osmolality and hyponatremia; K92.2 Gastrointestinal hemorrhage, unspecified; I10 Essential (primary) hypertension; M19.90 Unspecified osteoarthritis, unspecified site; E87.5 Hyperkalemia; D64.9 Anemia, unspecified; E87.70 Fluid overload, unspecified; E16.2 Hypoglycemia, unspecified; K74.69 Other cirrhosis of liver; E83.119 Hemochromatosis, unspecified; D69.59 Other secondary thrombocytopenia; D73.1 Hypersplenism; E66.9 Obesity, unspecified; Z88.1 Allergy status to other antibiotic agents; Z91.048 Other nonmedicinal substance allergy status; Z82.49 Family history of ischemic heart disease and other diseases of the circulatory system; Z80.0 Family history of malignant neoplasm of digestive organs; Z76.82 Awaiting organ transplant status; Z68.37 Body mass index [BMI] 37.0-37.9, adult; D69.6 Thrombocytopenia, unspecified
CPT/HCPCS: 36415; 36558; 71045; 76775; 76937; 77001; 80048; 80053; 80076; 80202; 81003; 81015; 82140; 82150; 82550; 83605; 83690; 83735; 83880; 84145; 84484; 85014; 85018; 85025; 85027; 85379; 85384; 85610; 85730; 86078; 86140; 86703; 86707; 86803; 86850; 86900; 86901; 86922; 86927; 87040; 87086; 87350; 87641; 90935; 93005; 93306; 99156; 99157; 99285; A9270-GY; C1750; G0257; G8978-GP-CK; G8979-GP-CI; G8987-GO-CK; G8988-GO-CI; G8989-GO-CI; J0610; J0690; J0780; J0878; J1170; J1642; J1644; J1940; J2250; J2405; J2543; J3010; J3370; J3490; J7060; P9017; P9040; P9045; P9047; Q5106; Q9967